=== PATIENT | male | born 1990 | race Caucasian/White ===

== ENCOUNTER 2017-11-23 23:51 | Inpatient (IN) | payer MEDICAID ==
[~2017-11-23] VITALS: Ht 175.3 cm; Wt 83.9 kg
--- NOTE | 2017-11-23 23:55 | NUR ---
PT BIB RA WITH A C/O FEVER 104 AT FACILITY. PER EMS, PT REC'D ROCEPHIN AT 1700 AND BACTRIM AT 2200. PT IS PINK IN COLOR. RUE IS CONTRACTED AND RT HAND IS RED, EDEMATOUS, AND WARM TO TOUCH. PT IS NON VERBAL, BUT NODS TO YES AND NO QUESTIONS. PT HAS BUE AND BLE CONTRACTURES. PT HAS LLE REDNESS, EDEMA, AND LLE IS WARM TO THE TOUCH. PT HAS 22G IV IN RT FOOT ANALYTICAL SCIENTIST. RT FOOT IV IS PATENT AND BENIGN. PT IS ON THE MONITOR AND CONTINUOUS PULSE OX. WILL CONTINUE TO MONITOR THE PT. DR. GAMBLE IS AT THE BEDSIDE. RECTAL TEMP TAKEN PT IS 103.9. NO BED SORES NOTED ON BACK OR BUTTOCK. SMALL WOUND NOTED ON RT HAND.
--- NOTE | 2017-11-23 23:55 | NUR ---
PT HAS A TRACH AND IS ON 5L AEROSOL VIA TRACH. RT IS AT THE BEDSIDE.
[2017-11-24] MEDS ORDERED: IV NS 0.9% 1,000 ML BAG IV ONE
--- NOTE | 2017-11-24 | NUR ---
PILLOW PLACED UNDER BILATERAL ANKLES TO OFFLOAD THE FEET.
[2017-11-24] MEDS ORDERED: VANCOMYCIN 1 GM VIAL ONE (00:09)
[2017-11-24] MEDS ORDERED: ACETAMINOPHEN 650 MG/SUPP.RECT RC ONE ×2 (00:09)
[2017-11-24] MEDS ORDERED: VANCOMYCIN 1 GM in IV D5W 250 ML IV ONE (00:30)
--- NOTE | 2017-11-24 00:32 | NUR ---
PT'S MOTHER IS AT THE BEDSIDE.
[2017-11-24 00:36] LABS: BASOPHILS % (AUTO) 0.2 % (0.0-2.0); EOSINOPHILS # (AUTO) 0.1 /CMM (0.0-0.7); HEMATOCRIT 33 % (39-51); HEMOGLOBIN 11.2 g/dL (13.5-17.5); LYMPHOCYTES # (AUTO) 0.5 /CMM (0.8-4.8); LYMPHOCYTES % (AUTO) 8.2 % (20.0-44.0); MEAN CORPUSCULAR HEMOGLOBIN 31 PG (26.0-33.0); MEAN CORPUSCULAR HGB CONC 34 g/dl (31.0-36.0); MEAN CORPUSCULAR VOLUME 90 fL (80-96); MONOCYTES # (AUTO) 0.2 /CMM (0.1-1.30); MONOCYTES % (AUTO) 3.6 % (2.0-12.0); NEUTROPHILS # (AUTO) 5.5 /CMM (1.8-8.9); PLATELET COUNT (AUTO) 153 /CMM (150-450); RDW COEFFICIENT OF VARIATION 12.9 (11.5-15.0); RED BLOOD CELL COUNT(AUTO) 3.62 MIL/uL (4.5-6.0); WHITE BLOOD COUNT (AUTO) 6.4 K/uL (4.3-11.0)
[2017-11-24 00:37] LABS: APPEARANCE,URINE CLEAR (CLEAR); BILIRUBIN,URINE NEGATIVE (NEGATIVE); BLOOD, URINE TRACE-INTA Ery/uL (NEGATIVE); COLOR,URINE YELLOW (YELLOW); KETONES,URINE NEGATIVE (NEGATIVE); LEUKOCYTE ESTERASE ,URINE NEGATIVE (NEGATIVE); NITRITE, URINE NEGATIVE (NEGATIVE); PH,URINE 6.5 (5.0-8.0); PROTEIN,URINE TRACE mg/dl (NEGATIVE); UGLUCOSE NEGATIVE (NEGATIVE); UROBILINOGEN,URINE 0.2 EU/dL (0.2)
[2017-11-24 00:40] LABS: BACTERIA,URINE None seen /HPF (None Seen); RBC,URINE 0-2 /HPF (0-2); SQUAMOUS EPITHELIAL CELL,UR Few /HPF (None Seen)
[2017-11-24 00:51] LABS: INR 1.11 (0.87-1.13)
[2017-11-24 00:57] LABS: TROPONIN I < 0.017 ng/mL (0.00-0.056)
[2017-11-24 00:58] LABS: CALCIUM, SERUM 8.3 mg/dL (8.5-10.1); CARBON DIOXIDE 29 mmol/L (21-32); CHLORIDE 104 mmol/L (98-107); CREATININE 0.6 mg/dL (0.6-1.3); GLUCOSE 90 mg/dL (74-106); POTASSIUM 3.8 mmol/L (3.5-5.1); SODIUM SERUM 141 mmol/L (136-145); UREA NITROGEN, BLOOD 14 mg/dL (7-18)
[2017-11-24 01:02] LABS: ALANINE AMINOTRANSFERASE 44 U/L (12-78); ALBUMIN 2.6 g/dL (3.4-5.0); ALKALINE PHOSPHATASE 48 U/L (46-116); ASPARTATE AMINOTRANSFERASE 23 U/L (15-37); BILIRUBIN,DIRECT 0.2 mg/dL (0.0-0.2); BILIRUBIN,TOTAL 0.5 mg/dL (0.2-1.0); TOTAL PROTEIN, SERUM 6.8 g/dL (6.4-8.2)
[2017-11-24] MEDS ORDERED: ACET325T53 GT (01:03)
[2017-11-24] MEDS ORDERED: LORA2VIA6 IM (01:03)
[2017-11-24] MEDS ORDERED: LACT-96 GT (01:03)
[2017-11-24] MEDS ORDERED: IPRA3AMP IH ×2 (01:03)
[2017-11-24] MEDS ORDERED: BISA10SU8 RC (01:03)
[2017-11-24] MEDS ORDERED: NA P133E RC (01:03)
[2017-11-24] MEDS ORDERED: LEVE1000 GT (01:03)
[2017-11-24] MEDS ORDERED: DOCU-141 GT (01:03)
[2017-11-24] MEDS ORDERED: FERR15DR21 GT (01:03)
[2017-11-24] MEDS ORDERED: DOXA1TAB2 GT (01:03)
[2017-11-24] MEDS ORDERED: ASPI-605 GT (01:03)
[2017-11-24] MEDS ORDERED: MAGN2400 GT (01:09)
--- NOTE | 2017-11-24 01:19 | NUR ---
RECTAL TEMP RECHECKED. 102.2F. DR. GAMBLE IS AWARE. PT WAS ADJUSTED IN BED AND PILLOWS REPLACED. PT APPEARS TO BE MORE COMFORTABLE.
--- NOTE | 2017-11-24 01:48 | NUR ---
CALLING REPORT TO MICKI RICO
[2017-11-24] MEDS ORDERED: MULT-213 GT (02:17)
[2017-11-24] MEDS ORDERED: PANT40SU2 GT (02:17)
[2017-11-24] MEDS ORDERED: CRAN3875 GT (02:17)
[2017-11-24] MEDS ORDERED: TIZA4TAB4 GT (02:17)
[2017-11-24] MEDS ORDERED: ASCO500T8 GT (02:17)
[2017-11-24] MEDS ORDERED: NIFE30TA89 GT (02:17)
[2017-11-24] MEDS ORDERED: SENN-167 GT (02:17)
--- NOTE | 2017-11-24 02:25 | NUR ---
BULK INTAKE WORKER INITIAL NOTES RECEIVED PATIENT AWAKE, NON-VERBAL, MOTHER AT BEDSIDE. NO S/S OF PAIN OR DISCOMFORT. NO RESPIRATORY DISTRESS NOTED, WITH TRACH PORTEX 7 C/D/I. ON TRACH MASK 5LPMO2, SPO2 100%. SKIN WARM AND DRY TO TOUCH. NOTED WITH RIGHT HAND SWELLING, RED, AND WARM TO TOUCH. PER MOTHER IT STARTED A FEW DAYS AGO AND THEY WERE USING ANTIBIOTIC OINTMENT AT THE FACILITY. NOTED WITH LEFT LEG REDNESS, WARM TO TOUCH. WITH GT PATENT AND INTACT, IN PLACE. ON TELE MONITOR SR 95. PAGED DR. WALKER FOR ADMISSION ORDERS. HOB ELEVATED. SIDE RAILS UP AND LOCKED. BED KEPT AT LOWEST POSITION. CALL LIGHT KEPT WITHIN EASY REACH. WILL CONTINUE TO MONITOR.
[2017-11-24 02:44] VITALS: BP 123/69
[2017-11-24 04:00] VITALS: BP 102/63
[2017-11-24] MEDS ORDERED: MORPHINE SULFATE INJ 2 MG/ML DISP.SYRIN IV PRN (04:00)
[2017-11-24] MEDS ORDERED: VANCOMYCIN 1 GM in IV D5W 250 ML IV SCH (04:00)
[2017-11-24] MEDS ORDERED: ONDANSETRON HCL/PF 4 MG/2 ML VIAL IVP PRN (04:00)
[2017-11-24] MEDS ORDERED: Z GUARD REMEDY 2 OZ OINT TP PRN (04:00)
[2017-11-24] MEDS ORDERED: FIBERSOURCE HN 1,000 ML BOTTLE GT PRN ×2 (04:30)
[2017-11-24] MEDS ORDERED: ALBUTEROL FS 2.5 MG/3 ML VIAL.NEB NEB PRN (04:30)
[2017-11-24] MEDS ORDERED: NIFEdipine XL (30MG) 30 MG TAB PO PRN (04:30)
[2017-11-24] MEDS ORDERED: LORAZEPAM INJ 2 MG/ML VIAL IV PRN (04:30)
[2017-11-24] MEDS ORDERED: PIPERACILLIN /TAZOBACTAM 3.375 G VIAL IV ONE (04:34)
[2017-11-24] MEDS: TIZANIDINE HCL 4 MG TABLET GT SCH ×3 (04:40→20:33)
[2017-11-24] MEDS: IV NS 0.9% 1,000 ML IV PRN (04:41)
[2017-11-24] MEDS: ACETAMINOPHEN 650 MG/SUPP.RECT RC PRN ×3 (04:59→20:03)
--- NOTE | 2017-11-24 05:00 | NUR ---
RESTORATIVE AIDE NOTES NOTED PATIENT WITH AXILLARY TEMP OF 101.2 COOLING MEASURES RENDERED. TYLENOL SUPOSSITORY GIVEN. WILL CONTINUE TO MONITOR.
[2017-11-24] MEDS: PIPERACILLIN /TAZOBACTAM 3.375 G in IV NS 0.9% 50 ML IV SCH ×3 (05:05→18:44)
[2017-11-24] MEDS ORDERED: FEE PK DOSING 1 MIN EA MC ONE (07:08)
--- NOTE | 2017-11-24 07:20 | NUR ---
RN NOTES PT IS LAYING DOWN IN BED, RESTING COMFORTABLY. PT ON 5L O2 VIA MASK ON TRACH, RESPIRATIONS ARE EVEN AND UNLABORED. IV ON LFA INTACT AND RUNNING NS @ 75ML/HR. G-TUBE IS PATENT AND RUNNING FIBERSOURCE @ 55ML/HR. SAFETY MEASURES ARE IN PLACE. WILL CONTINUE TO MONITOR.
--- NOTE | 2017-11-24 07:57 | NUR ---
DICTATING MACHINE TRANSCRIBER CLOSING NOTES NO SIGNIFICANT CHANGES. NO RESPIRATORY DISTRESS NOTED. COOLING MEASURES CONTINUED. GT PATENT AND INTACT. TOLERATING GTF. IVF RUNNING. HOB ELEVATED. SIDE RAILS UP AND LOCKED. BED KEPT AT LOWEST POSITION. KEPT CLEAN AND DRY. TURNED AND REPOSITIONED Q2 AND PRN. INFORMED AM NURSE TO F/U DVT PPX. CONTINUITY OF CARED ENDORSED TO AM NURSE.
[2017-11-24 08:00] VITALS: BP 144/60
[2017-11-24] MEDS: PANTOPRAZOLE 40 MG VIAL IV SCH (08:16)
[2017-11-24] MEDS: ASPIRIN EC 81 MG TABLET.DR PO SCH (08:16)
[2017-11-24] MEDS: FERROUS SULFATE UDC 300 MG/5 ML UDC PO SCH (08:16)
[2017-11-24] MEDS: LEVETIRACETAM (250 MG) 250 MG TABLET PO SCH ×2 (08:17→20:33)
[2017-11-24] MEDS: DOXAZOSIN MESYLATE (1 MG) 1 MG TABLET GT SCH (08:17)
[2017-11-24] MEDS: VANCOMYCIN 1.25 GM in IV NS 0.9% 500 ML IV SCH ×2 (08:21→16:09)
--- NOTE | 2017-11-24 10:38 | NUR ---
WOUND CARE CONSULT: PT PRESENTS WITH SWELLING AND REDNESS TO LEFT LOWER EXTREMITY, PRESENT ON ADMISSION. REDNESS EXTENDS FROM FOOT TO INNER THIGH. DEFER TO MD FOR REDNESS AND SWELLING. PT IS INCONTINENT. SACRAL AND BUTTOCK SCARRING NOTED. ALL SKIN PROTECTION MEASURES IN PLACE AND DISCUSSED WITH NURSING STAFF. FIRST STEP MATTRESS ORDERED. WILL SEE PRN. MD IN AGREEMENT WITH PLAN OF CARE. Addendum: 11/24/17 at 1039 by CLEMENTE DENNISON WNDNU Amended: Links added.
[2017-11-24 12:00] VITALS: BP 144/65
[2017-11-24 16:00] VITALS: BP_SYST 113; BP_SYST 137; BP_DIAS 59; BP_DIAS 70
--- NOTE | 2017-11-24 18:50 | NUR ---
RN NOTES PT IS LAYING DOWN IN BED WITH FAMILY AT BEDSIDE, NO SIGNS OF DISTRESS NOTED. PT ON 5L O2 VIA MASK CONNECTED TO TRACH. G-TUBE IS INTACT AND RUNNING FIBERSOURCE @ 65ML/HR. IV ON LFA IS INTACT AND RUNNING NS @ 75 ML/HR. ALL MEDS WERE GIVEN ORDERED. DILAUDID GIVEN FOR SIGNS OF PAIN NOTED. PT PROVIDED WITH SKIN AND WOUND CARE. SAFETY MEASURES ARE IN PLACE, CALL LIGHT IS IN REACH. WILL ENDORSE TO CHIEF MEDICAL OFFICER RN FOR CONTINUITY OF CARE.
[2017-11-24] MEDS: HYDROMORPHONE INJ 0.5 MG/0.5 ML SYRINGE IV PRN (18:52)
--- NOTE | 2017-11-24 19:30 | NUR ---
FIRE SAFETY MANAGER INITIAL NOTE RECEIVED IN BED WITH FAMILY AT BEDSIDE. OPENS EYES. ON COOL AEROSOL WITH 5LPM OF O2 AND SATURATING WELL. TELE- SR. IV LFA AND RFA CLEAN, DRY, PATENT WITH FLUIDS INFUSING. GTUBE FEEDING WELL TOLERATED AND NO RESIDUALS NOTED. HOB ELEVATED AND ON ASPIRATION PRECAUTIONS. WILL CONTINUE TO MONITOR.
[2017-11-25] VITALS: BP 133/62
[2017-11-25] MEDS: IV NS 0.9% 1,000 ML IV PRN (00:31)
[2017-11-25] MEDS: PIPERACILLIN /TAZOBACTAM 3.375 G in IV NS 0.9% 50 ML IV SCH ×4 (00:31→19:12)
[2017-11-25] MEDS: FIBERSOURCE HN 1,000 ML BOTTLE GT PRN (00:33)
[2017-11-25] MEDS: HYDROMORPHONE INJ 0.5 MG/0.5 ML SYRINGE IV PRN ×3 (00:43→17:40)
--- NOTE | 2017-11-25 01:00 | NUR ---
FOOD AND BEVERAGE CHECKER NOTE PT GIVEN TYLENOL SUPPOSITORY FOR INCREASED TEMP. COOLING MEASURES PERFORMED. MOTHER OF PT CALLED TO PLEASE ADMINISTER PAIN MEDICATION IF AWAKE D/T PAIN. WILL CONTINUE TO MONITOR.
[2017-11-25] MEDS: VANCOMYCIN 1.25 GM in IV NS 0.9% 500 ML IV SCH ×3 (01:24→17:11)
[2017-11-25] MEDS: ACETAMINOPHEN 650 MG/SUPP.RECT RC PRN ×2 (04:09→21:31)
[2017-11-25] MEDS: TIZANIDINE HCL 4 MG TABLET GT SCH ×3 (05:34→21:23)
[2017-11-25 06:47] LABS: BASOPHILS % (AUTO) 0.4 % (0.0-2.0); EOSINOPHILS # (AUTO) 0.2 /CMM (0.0-0.7); HEMATOCRIT 30 % (39-51); HEMOGLOBIN 10.3 g/dL (13.5-17.5); LYMPHOCYTES # (AUTO) 0.6 /CMM (0.8-4.8); MEAN CORPUSCULAR HEMOGLOBIN 31 PG (26.0-33.0); MEAN CORPUSCULAR HGB CONC 35 g/dl (31.0-36.0); MEAN CORPUSCULAR VOLUME 90 fL (80-96); MONOCYTES # (AUTO) 0.5 /CMM (0.1-1.30); MONOCYTES % (AUTO) 8.6 % (2.0-12.0); NEUTROPHILS # (AUTO) 4.3 /CMM (1.8-8.9); PLATELET COUNT (AUTO) 133 /CMM (150-450); RDW COEFFICIENT OF VARIATION 12.9 (11.5-15.0); RED BLOOD CELL COUNT(AUTO) 3.28 MIL/uL (4.5-6.0); WHITE BLOOD COUNT (AUTO) 5.6 K/uL (4.3-11.0)
[2017-11-25 06:54] LABS: CALCIUM, SERUM 7.8 mg/dL (8.5-10.1); CREATININE 0.6 mg/dL (0.6-1.3); MAGNESIUM 1.7 mg/dL (1.8-2.4); PHOSPHORUS 2.2 mg/dL (2.5-4.9); POTASSIUM 3.4 mmol/L (3.5-5.1)
[2017-11-25 06:58] LABS: THYROID STIMULATING HORMONE 2.331 uIU/mL (0.358-3.74)
--- NOTE | 2017-11-25 07:34 | NUR ---
SALES AGENT PEST CONTROL SERVICE CLOSING NOTE NO ACUTE DISTRESS NOTED. ALL NEEDS ATTENDED TO PROMPTLY. HOB ELEVATED. GAVE ANOTHER DOSE OF TYLENOL SUPPOSITORY AND RECHECKED TEMP 98.7 ORAL. KEPT CLEAN AND DRY. WILL ENDORSE TO NEXT SHIFT FOR CONTINUITY OF CARE.
--- NOTE | 2017-11-25 07:43 | NUR ---
DINKEY ENGINE FIRER/FIREMAN OPENING NOTE RECEIVED BEDSIDE SBAR REPORT ON THE PATIENT. PATIENT IS CONTRACTED. OPENS EYES SPONTANEOUSLY AND TO SOUND. PATIENT IS IN BED, LILI IS LOCKED IN LOWEST POSITION, SIDE RAILS UP X3, BED ALARM IS ON. PATIENT IS SEMI-HERNANDEZ'S POSITION. HOB ELEVATED. PATIENT IS ON COOL AEROSOL ORDERED. PATIENT APPEARS COMFORTABLE. NO S/S OF DISTRESS/PAIN/DISCOMFORT. ALL NEEDS ARE MET. WILL CONTINUE TO ASSESS/MONITOR THROUGHOUT THE SHIFT.
[2017-11-25 08:00] VITALS: BP 135/59
[2017-11-25] MEDS: LEVETIRACETAM (250 MG) 250 MG TABLET PO SCH ×2 (08:36→21:23)
--- NOTE | 2017-11-25 08:37 | NUR ---
Three 250 mg Levetiracetam tablets dispensed from one [facility], and Five 250 mg Levetiracetam tablets dispensed from another [facility] to administer intended dose. Dose verified. 6 rights of medication followed.
[2017-11-25] MEDS: DOXAZOSIN MESYLATE (1 MG) 1 MG TABLET GT SCH (08:42)
[2017-11-25] MEDS: ASPIRIN EC 81 MG TABLET.DR PO SCH (08:42)
[2017-11-25] MEDS: FERROUS SULFATE UDC 300 MG/5 ML UDC PO SCH (08:43)
[2017-11-25] MEDS: PANTOPRAZOLE 40 MG VIAL IV SCH (08:43)
--- NOTE | 2017-11-25 09:09 | NUR ---
Zosyn from 11/24 documented non-administered to rid of red passed-due reminder.
[2017-11-25] MEDS ORDERED: POTASSIUM CHLORIDE 20 MEQ POWDER PACKET PO ONE (11:00)
[2017-11-25] MEDS: Magnesium 1GM/D5W 100ML PREMIX 100 ML IV SCH ×2 (11:36→13:40)
[2017-11-25 12:00] VITALS: BP 129/69
[2017-11-25] MEDS ORDERED: POTASSIUM CHLORIDE 20 MEQ TAB.PRT.SR PO ONE (12:00)
[2017-11-25] MEDS: NEOMY SULF/BACITRAC ZN/POLY 15 GM TUBE TP SCH (15:35)
[2017-11-25 16:00] VITALS: BP 135/60
--- NOTE | 2017-11-25 17:20 | NUR ---
received an order for midline insertion.
[2017-11-25] MEDS ORDERED: NEUTRA PHOS 1 POWD.PACKET NG ONE (17:30)
--- NOTE | 2017-11-25 17:40 | NUR ---
painful midline insertion at the bedside. patient is screaming and grimacing. Dilaudid administered as ordered.
--- NOTE | 2017-11-25 18:51 | NUR ---
MS RN CLOSING NOTE PATIENT IS CONTRACTED. OPENS EYES SPONTANEOUSLY AND TO SOUND. PATIENT IS IN BED, LILI IS LOCKED IN LOWEST POSITION, SIDE RAILS UP X3, BED ALARM IS ON. PATIENT IS SEMI-HERNANDEZ'S POSITION. HOB ELEVATED AT ALL TIMES. PATIENT IS ON COOL AEROSOL ORDERED. PATIENT APPEARS COMFORTABLE. NO S/S OF DISTRESS/PAIN/DISCOMFORT. ALL DUE MEDICATIONS ADMINISTERED. FEEDING RUNNING PRESCRIBED. REPOSITIONED EVERY TWO HOURS AND NEEDED FOR COMFORT. DISCUSSED THE CARE PLAN WITH THE MOTHER AT THE BEDSIDE. ALL NEEDS ARE MET. WILL ENDORSE TO THE MOLD LOFT WORKER NURSE FOR JEAN.
--- NOTE | 2017-11-25 19:29 | NUR ---
Dilaudid administered at 1740 did not register in the system. Medication was scanned and administered during midline insertion. Rn wanted to check the time of last administration and found out that last recorder administration was 7 hours ago. Explained the situation to kassie Michel charge nurse.
[2017-11-25 20:00] VITALS: BP 136/79
[2017-11-26] MEDS: PIPERACILLIN /TAZOBACTAM 3.375 G in IV NS 0.9% 50 ML IV SCH ×4 (00:15→18:25)
[2017-11-26] MEDS: VANCOMYCIN 1.25 GM in IV NS 0.9% 500 ML IV SCH ×3 (00:47→18:16)
[2017-11-26 04:00] VITALS: BP 127/77
[2017-11-26] MEDS: TIZANIDINE HCL 4 MG TABLET GT SCH ×3 (05:02→20:48)
[2017-11-26] MEDS: IV NS 0.9% 1,000 ML IV PRN (05:14)
[2017-11-26 06:46] LABS: CALCIUM, SERUM 8.4 mg/dL (8.5-10.1); CREATININE 0.6 mg/dL (0.6-1.3); PHOSPHORUS 3.5 mg/dL (2.5-4.9); POTASSIUM 3.8 mmol/L (3.5-5.1)
--- NOTE | 2017-11-26 07:30 | NUR ---
MS RN OPENING NOTES RECEIVED PATIENT IN STABLE CONDITION. IN NO APPARENT DISTRESS. BEDSIDE RAILS ARE UPX2. BED IS LOCKED AND LOWERED. CALL LIGHT IS WITHIN REACH. WILL CONTINUE TO MONITOR.
[2017-11-26] MEDS: PANTOPRAZOLE 40 MG VIAL IV SCH (08:21)
[2017-11-26] MEDS: FERROUS SULFATE UDC 300 MG/5 ML UDC PO SCH (08:29)
[2017-11-26] MEDS: DOXAZOSIN MESYLATE (1 MG) 1 MG TABLET GT SCH (08:29)
[2017-11-26] MEDS: ASPIRIN EC 81 MG TABLET.DR PO SCH (08:30)
[2017-11-26] MEDS: LEVETIRACETAM (250 MG) 250 MG TABLET PO SCH ×2 (08:30→20:48)
[2017-11-26] MEDS: NEOMY SULF/BACITRAC ZN/POLY 15 GM TUBE TP SCH (08:31)
[2017-11-26 12:00] VITALS: BP 152/74
[2017-11-26] MEDS: LACTOBACILLUS RHAMNOSUS GG 1 EACH CAP.SPRINK PO SCH (18:19)
--- NOTE | 2017-11-26 18:30 | NUR ---
MS RN CLOSING NOTES PATIENT IS RESTING IN BED IN NO APPARENT DISTRESS. BEDSIDE RAILS ARE UPX2. BED IS LOCKED AND LOWERED. CALL LIGHT IS WITHIN REACH. WILL ENDORSE CARE TO HIGH SCHOOL SPORTS COACH NURSE FOR JEAN.
--- NOTE | 2017-11-26 19:30 | NUR ---
MS RN INITIAL NOTE PT RECEIVED IN BED WITH FAMILY AT BEDSIDE. OPENS EYES, NODS HEAD AND SMILES. ON COOL AEROSOL O2 5LPM WITH TRACH IN PLACE AND SATURATING 95%. IV CHESTER MIDLINE AND LFA CLEAN, DRY, PATENT WITH FLUIDS INFUSING. GTUBE FEEDING IN PLACE AND WELL TOLERATED WITHOUT RESIDUALS NOTED AT THIS TIME. HOB ELEVATED AND ON ASPIRATION PRECAUTIONS. WILL CONTINUE TO MONITOR.
[2017-11-26 20:00] VITALS: BP 127/68
[2017-11-27] MEDS: PIPERACILLIN /TAZOBACTAM 3.375 G in IV NS 0.9% 50 ML IV SCH ×5 (01:01→23:21)
[2017-11-27] MEDS: FIBERSOURCE HN 1,000 ML BOTTLE GT PRN ×2 (01:10→21:04)
[2017-11-27] MEDS: VANCOMYCIN 1.25 GM in IV NS 0.9% 500 ML IV SCH ×2 (01:53→09:00)
[2017-11-27 04:00] VITALS: BP 151/73
[2017-11-27] MEDS: TIZANIDINE HCL 4 MG TABLET GT SCH ×3 (04:33→20:04)
[2017-11-27] MEDS: HYDROMORPHONE INJ 0.5 MG/0.5 ML SYRINGE IV PRN ×2 (04:34→14:55)
[2017-11-27] MEDS: IV NS 0.9% 1,000 ML IV PRN (06:19)
[2017-11-27 07:01] LABS: CALCIUM, SERUM 8.4 mg/dL (8.5-10.1); CREATININE 0.6 mg/dL (0.6-1.3); POTASSIUM 3.4 mmol/L (3.5-5.1)
--- NOTE | 2017-11-27 07:07 | NUR ---
MS RN CLOSING NOTE PT REMAINED STABLE DURING SHIFT. NO ACUTE DISTRESS NOTED. ALL NEEDS ATTENDED TO PROMPTLY. NO FEVERS DURING THE SHIFT. KEPT CLEAN AND DRY. ON COOL AEROSOL AND SATURATING WELL. SUCTIONED NEEDED AND WELL TOLERATED. HOB ELEVATED. GT FEEDING WELL TOLERATED AND NO RESIDUALS NOTED. WILL ENDORSE TO NEXT SHIFT FOR CONTINUITY OF CARE.
--- NOTE | 2017-11-27 07:30 | NUR ---
INITIAL PT ON BED PT OPENS EYES STARTLES EASILY BUT WITHOUT PURPOSEFUL MOVEMENTS ON COMMAND. AND TRACHED T-PIECE AT 28%. PT HAS PICC IN CHESTER RUNNING NS AT 75 MLS/HR CLEAN DRY AND INTACT. ON GTF FIBER SOURCE AT 65 MLS PER HOUR NO RESIDUAL BED ALARM ON AND BED IN LOW POSITION.
[2017-11-27 08:00] VITALS: BP 107/54
[2017-11-27] MEDS: ASPIRIN EC 81 MG TABLET.DR PO SCH (10:11)
[2017-11-27] MEDS: FERROUS SULFATE UDC 300 MG/5 ML UDC PO SCH (10:11)
[2017-11-27] MEDS: PANTOPRAZOLE 40 MG VIAL IV SCH (10:11)
[2017-11-27] MEDS: LACTOBACILLUS RHAMNOSUS GG 1 EACH CAP.SPRINK PO SCH ×2 (10:12→16:26)
[2017-11-27] MEDS: LEVETIRACETAM (250 MG) 250 MG TABLET PO SCH ×2 (10:12→20:05)
[2017-11-27] MEDS: DOXAZOSIN MESYLATE (1 MG) 1 MG TABLET GT SCH (10:13)
[2017-11-27] MEDS: NEOMY SULF/BACITRAC ZN/POLY 15 GM TUBE TP SCH (10:14)
--- NOTE | 2017-11-27 10:15 | NUR ---
MS RN NOTES PATIENT RECEIVED IN BED RESTING ON TRACH WITH COOL AEROSOL 5LPM. WITH MIDLINE ON RIGHT UPPER ARM. PATIENT OPENS EYES NONE VERBAL. BED IN LOW LOCKED POSITION CALL LIGHT WITHIN REACH WILL CONTINUE TO MONITOR.
[2017-11-27] MEDS ORDERED: POTASSIUM CHLORIDE 20 MEQ POWDER PACKET GT SCH (13:00)
[2017-11-27 16:00] VITALS: BP 123/69
--- NOTE | 2017-11-27 18:27 | NUR ---
MS RN NOTES PATIENT IN BED RESTING NO SOB OR ACUTE DISTRESS NOTED. ALL DUE MEDICATIONS ADMINISTERED. ALL NEEDS MET. PATIENT WITH MIDLINE ON RIGHT UPPER ARM INTACT PATENT. TRACH ON COOL AEROSOL AT 5LPM. WILL ENDORSE CARE TO PM SHIFT.
--- NOTE | 2017-11-27 19:36 | NUR ---
MS RN NOTES: RECEIVED PT IN BED. PT OPENS EYES AND IS CONTRACTED. PT ON 5LPM VIA COOL AEROSOL. PT HAS G TUBE AND IS ON FIBERSOURCE AT 65ML/HR. PT HAS CHESTER MIDLINE AND IS BEING INFUSED WITH ZOSYN IV THIS TIME. PT ALSO HAS L FOREARM #20G AND IS PATENT AND INTACT/ ALSO SALINE LOCK. CALL LIGHT WITHIN PT'S REACH. BED KEPT IN LOW, LOCKED POSITION, AND SIDE RAILS X 3UP. WILL CONTINUE TO MONITOR PT.
[2017-11-27 20:00] VITALS: BP 143/73
[2017-11-27] MEDS: VANCOMYCIN 1.25 GM in IV D5W 500 ML IV SCH (20:21)
--- NOTE | 2017-11-27 23:15 | NUR ---
MS RN NOTES: DR. RUTHIE Rivas ON THE FLOOR. MENTIONED TO HIM ORAL THRUSH . GOT ORDER FOR NYSTATIN.
[2017-11-28] MEDS: IV NS 0.9% 1,000 ML IV PRN (00:14)
[2017-11-28 04:00] VITALS: BP 113/64
[2017-11-28] MEDS: TIZANIDINE HCL 4 MG TABLET GT SCH ×2 (04:40→13:28)
[2017-11-28] MEDS: PIPERACILLIN /TAZOBACTAM 3.375 G in IV NS 0.9% 50 ML IV SCH ×2 (05:01→13:22)
[2017-11-28 06:39] LABS: CALCIUM, SERUM 8.5 mg/dL (8.5-10.1); CREATININE 0.6 mg/dL (0.6-1.3); POTASSIUM 3.7 mmol/L (3.5-5.1)
--- NOTE | 2017-11-28 06:55 | NUR ---
MS RN CLOSING NOTES: ALL NEEDS WERE ATTENDED AND ANTICIPATED FOR. PT KEPT CLEAN, DRY, AND COMFORTABLE. PT IS IN BED ASLEEP AT THIS TIME. PT IS CONTRACTED. PT ON 5LPM VIA COOL AEROSOL AND TOLERATING WELL. PT HAS G TUBE AND IS ON FIBERSOURCE AT 65ML/HR. 5ML RESIDUAL NOTED. HAS BEEN FLUSHED WITH WATER. PT HAS CHESTER MIDLINE AND IS BEING INFUSED WITH NS AT 75ML/HR. PT ALSO HAS L FOREARM #20G AND IS PATENT AND INTACT/ ALSO SALINE LOCK. CALL LIGHT WITHIN PT'S REACH. BED KEPT IN LOW, LOCKED POSITION, AND SIDE RAILS X 3UP. WILL ENDORSE TO AM NURSE FOR JEAN.
[2017-11-28 08:00] VITALS: BP 126/65
[2017-11-28] MEDS: PANTOPRAZOLE 40 MG VIAL IV SCH (08:29)
[2017-11-28] MEDS: VANCOMYCIN 1.25 GM in IV D5W 500 ML IV SCH (08:29)
--- NOTE | 2017-11-28 08:33 | NUR ---
MS RN NOTES PATIENT IS AWAKE, OPENS EYES. TRACH INTACT TO 5L OXYGEN COOL AEROSOL. BUE AND BLE CONTRACTED. CHESTER MIDLINE PATENT AND INTACT, IVF NS INFUSING AT 75ML/HR. ABDOMEN PRESENCE OF GTUBE, GASTRIC RESIDUAL 10CC, ON FIBERSOURCE AT 65ML/HR, TOLERATING WELL. FAL PRECAUTION MAINTAIN, WILL CONT TO MONITOR.
[2017-11-28] MEDS: LEVETIRACETAM (250 MG) 250 MG TABLET PO SCH (08:48)
[2017-11-28 08:49] VITALS: BP 126/65
[2017-11-28] MEDS: ASPIRIN EC 81 MG TABLET.DR PO SCH (08:49)
[2017-11-28] MEDS: FERROUS SULFATE UDC 300 MG/5 ML UDC PO SCH (08:49)
[2017-11-28] MEDS: LACTOBACILLUS RHAMNOSUS GG 1 EACH CAP.SPRINK PO SCH (08:49)
[2017-11-28] MEDS: DOXAZOSIN MESYLATE (1 MG) 1 MG TABLET GT SCH (08:49)
[2017-11-28] MEDS: NYSTATIN (PYXIS) 500,000 UNIT/5 ML ORAL.SUSP PO SCH ×2 (08:56→13:28)
[2017-11-28] MEDS: NEOMY SULF/BACITRAC ZN/POLY 15 GM TUBE TP SCH (11:34)
--- NOTE | 2017-11-28 14:55 | NUR ---
MS RN DISCHARGED PATIENT HAS BEEN CLEARED FOR DISCHARGE. VS REMAINS STABLE, TRACH INTACT ON COOL AEROSOL 5L OXYGEN. CHESTER MIDLINE REMAINS IN PLACE, PATENT AND INTACT, PATIENT WILL CONT IV ANTIBIOTIC AT THE SN[facility] ORDERED. CALLED ANET[facility] TAVAREZ, SPOKE TO MICKI LORD FOR REPORT. NOTIFIED FAMILY SPOKE TO AKIN, MOTHER. PATIENT LEFT HOSP IN STABLE CONDITION VIA AMBULANCE.
== END 2017-11-28 14:11 | DRG 720 ==
LOC: ER 23:54 → TELE1 11-24 02:03 → MEDSG1 11-25 12:34
PROC: 05H533Z Insertion of Infusion Device into Right Subclavian Vein, Percutaneous Approach (ICD-10-PCS; principal; 2017-11-26)
PROC: B546ZZA Ultrasonography of Right Subclavian Vein, Guidance (ICD-10-PCS; principal; 2017-11-26)
DX: A41.9 Sepsis, unspecified organism (principal); E43 Unspecified severe protein-calorie malnutrition; Z99.11 Dependence on respirator [ventilator] status; R40.3 Persistent vegetative state; G93.1 Anoxic brain damage, not elsewhere classified; J96.11 Chronic respiratory failure with hypoxia; R53.2 Functional quadriplegia; E87.2 Acidosis; L89.322 Pressure ulcer of left buttock, stage 2; D68.59 Other primary thrombophilia; Z93.0 Tracheostomy status; L03.116 Cellulitis of left lower limb; E83.42 Hypomagnesemia; E87.6 Hypokalemia; G40.909 Epilepsy, unspecified, not intractable, without status epilepticus; K21.9 Gastro-esophageal reflux disease without esophagitis; I10 Essential (primary) hypertension; N40.0 Benign prostatic hyperplasia without lower urinary tract symptoms; R13.10 Dysphagia, unspecified; E88.09 Other disorders of plasma-protein metabolism, not elsewhere classified; Z74.01 Bed confinement status; D64.9 Anemia, unspecified; Z93.1 Gastrostomy status; Z68.27 Body mass index [BMI] 27.0-27.9, adult; S60.511A Abrasion of right hand, initial encounter; X58.XXXA Exposure to other specified factors, initial encounter; Y93.9 Activity, unspecified; Y92.129 Unspecified place in nursing home as the place of occurrence of the external cause; L98.8 Other specified disorders of the skin and subcutaneous tissue; S30.810A Abrasion of lower back and pelvis, initial encounter; F09 Unspecified mental disorder due to known physiological condition; R21 Rash and other nonspecific skin eruption
CPT/HCPCS: 31720; 36415; 36569; 71045-TC; 80048-TC; 80061-TC; 80076-TC; 80202-TC; 81000-TC; 83605-TC; 83735-TC; 84100-TC; 84443-TC; 84484-TC; 85025-TC; 85730-TC; 87040-TC; 87081-TC; 87086-TC; 93971-TC; 94640-TC; 94664-TC; 94799-TC; A4216; A4606; C9113; J2060; J2543; J3370; J3475; J7030; J7040; J7060; Z7610

== ENCOUNTER 2020-04-04 23:36 | Emergency (ER) | payer MEDICAID ==
[~2020-04-04] VITALS: Ht 167.6 cm; Wt 77.1 kg
[~2020-04-04 23:36] MED LIST: ACET325T53 GT; ASCO500T87 GT; ASPI-605 GT; BISA10SU11 RC; CRAN3875 GT; DOCU-141 GT; DOXA1TAB2 GT; FERR15DR23 GT; IPRA3AMP23 IH; LACT-96 GT; LEVE1000 GT; LORA2VIA6 IM; MAGN24002 GT; MULT-213 GT; NA P133E RC; NIFE-35 GT; PANT40SU2 GT; SENN-261 GT; TIZA4TAB5 GT
--- NOTE | 2020-04-04 23:50 | NUR ---
PT NON VERBAL. KATHY FROM [facility] FOR GT PLACEMENT COMF. KUB WAS DONE IN THE FACILITIY. PT PLACED IN BED 2, ON MONITOR AND PULSE OX. AT BEDSIDE FOR EVAL.
--- NOTE | 2020-04-04 23:50 | NUR ---
XRAY AT BEDSIDE
--- NOTE | 2020-04-05 00:09 | NUR ---
AKIN [phone]
--- NOTE | 2020-04-05 01:14 | NUR ---
BLOOD COLLECTED AND SENT TO LAB
[2020-04-05 01:19] LABS: BASOPHILS # (AUTO) 0.1 /CMM (0.0-0.2); BASOPHILS % (AUTO) 0.9 % (0.0-2.0); EOSINOPHILS % (AUTO) 6.7 % (0.0-6.0); HEMATOCRIT 46 % (39-51); HEMOGLOBIN 15.4 g/dL (13.5-17.5); LYMPHOCYTES # (AUTO) 2.9 /CMM (0.8-4.8); LYMPHOCYTES % (AUTO) 38.2 % (20.0-44.0); MEAN CORPUSCULAR HGB CONC 34 g/dl (31.0-36.0); MEAN CORPUSCULAR VOLUME 93 fL (80-96); MONOCYTES # (AUTO) 0.6 /CMM (0.1-1.30); MONOCYTES % (AUTO) 7.6 % (2.0-12.0); NEUTROPHILS # (AUTO) 3.6 /CMM (1.8-8.9); NEUTROPHILS % (AUTO) 46.6 % (43.0-81.0); PLATELET COUNT (AUTO) 238 /CMM (150-450); RED BLOOD CELL COUNT(AUTO) 4.94 MIL/uL (4.5-6.0); WHITE BLOOD COUNT (AUTO) 7.7 K/uL (4.3-11.0)
--- NOTE | 2020-04-05 01:20 | NUR ---
PT BROUGHT TO CT
--- NOTE | 2020-04-05 01:20 | NUR ---
URINE COLLECTED AND SENT TO LAB
[2020-04-05 01:23] LABS: APPEARANCE,URINE CLEAR (CLEAR); BILIRUBIN,URINE NEGATIVE (NEGATIVE); BLOOD, URINE NEGATIVE Ery/uL (NEGATIVE); COLOR,URINE DARK YELLO (YELLOW); KETONES,URINE NEGATIVE (NEGATIVE); LEUKOCYTE ESTERASE ,URINE NEGATIVE (NEGATIVE); NITRITE, URINE NEGATIVE (NEGATIVE); PROTEIN,URINE TRACE mg/dl (NEGATIVE); UGLUCOSE NEGATIVE (NEGATIVE); UROBILINOGEN,URINE 0.2 EU/dL (0.2)
[2020-04-05 01:41] LABS: BACTERIA,URINE Few /HPF (None Seen); SQUAMOUS EPITHELIAL CELL,UR Rare /HPF (None Seen)
--- NOTE | 2020-04-05 01:51 | NUR ---
SYSTEMS ADMINISTRATION ANALYST AT BEDSIDE FOR REDRAW.
[2020-04-05 02:33] LABS: CALCIUM, SERUM 9.6 mg/dL (8.5-10.1); CREATININE 0.7 mg/dL (0.6-1.3); POTASSIUM 4.2 mmol/L (3.5-5.1)
[2020-04-05 02:34] LABS: ALBUMIN 4.1 g/dL (3.4-5.0); BILIRUBIN,TOTAL 0.9 mg/dL (0.2-1.0)
[2020-04-05 02:35] LABS: TOTAL PROTEIN, SERUM 8.2 g/dL (6.4-8.2)
--- NOTE | 2020-04-05 02:47 | NUR ---
called [facility]-- #[id number]; eta about 4hrs
--- NOTE | 2020-04-05 02:57 | NUR ---
ammarino 4am eta
--- NOTE | 2020-04-05 02:58 | NUR ---
gave report to freddy tsang at [facility]
[2020-04-05] MEDS ORDERED: POLYETHYLENE GLYCOL 3350 17 GM POWD.PACK PO ONE (03:00)
[2020-04-05] MEDS ORDERED: POLYETHYLENE GLYCOL 3350 17 GM POWD.PACK ONE (03:02)
[2020-04-05 03:57] LABS: BILIRUBIN,DIRECT 0.2 mg/dL (0.0-0.2)
--- NOTE | 2020-04-05 04:08 | NUR ---
REPORT GIVEN TO EMS. PT STABLE FOR DISCHARGE HOME
--- NOTE | 2020-04-05 04:09 | NUR ---
Patient discharged to facility in stable condition. Written and verbal after care instructions given. Patient verbalizes understanding of instruction.
[2020-04-05 04:10] VITALS: BP 106/71
== END 2020-04-05 04:17 | disposition home or self-care (01) ==
LOC: ER 23:36
DX: K63.89 Other specified diseases of intestine (principal); R56.9 Unspecified convulsions; I10 Essential (primary) hypertension; K21.9 Gastro-esophageal reflux disease without esophagitis; Z93.1 Gastrostomy status; Z79.899 Other long term (current) drug therapy
CPT/HCPCS: 36415; 74018; 80048-TC; 80076-TC; 81000-TC; 85025-TC; 87086-TC

== ENCOUNTER 2022-07-14 23:58 | Inpatient (IN) | payer MEDICAID ==
[~2022-07-14] VITALS: Ht 167.6 cm; Wt 86.4 kg
--- NOTE | 2022-07-15 00:10 | NUR ---
PATIENT [id number] FROM SNF C/O SOB S/P VOMITING. PATIENT ON TRACH 15L. PATIENT TAKEN TO ER BED 04. PATIENT CONNECTED TO ALIGNMENT SPECIALIST AND POX MONIOTRS. RT AT BEDSIDE FOR SUCTION.
--- NOTE | 2022-07-15 00:10 | NUR ---
PT HAS GTUBE FOR FEEDING
[2022-07-15] MEDS ORDERED: PANTOPRAZOLE 80 MG in IV NS 0.9% 100 ML IV ONE (00:30)
[2022-07-15] MEDS ORDERED: CEFEPIME 2 GM in IV D5W 100 ML IV ONE (00:30)
[2022-07-15] MEDS ORDERED: LEVOFLOXACIN 750 MG /D5W 150ML PIGGYBACK IV ONE (00:30)
[2022-07-15] MEDS ORDERED: PANTOPRAZOLE 80 MG in IV NS 0.9% 500 ML IV PRN (00:30)
--- NOTE | 2022-07-15 00:50 | NUR ---
PATIENT IS ATTACHED TO VENT
--- NOTE | 2022-07-15 00:50 | NUR ---
PT ON AC MODE FiO2 100%, TV 550, RATE 16, PEEP 5
--- NOTE | 2022-07-15 00:54 | NUR ---
RT NOTE Pt rec'd trached via PORTEX 7 UNCUFFED on Tmask @ 15lpm. Pt aspirated at facility via [facility] [employer]. Pt sx'd for thick mod amt of black secretions. Trach changed to PORTEX 7 CUFFED per MD orders and placed on [facility] vent on AC mode settings as charted per MD orders. Trach is patent and secured. Minimal bleeding noted at trach site. Pt shows no signs of resp distress or SOB. Alarms are set and audible. Ambu bag and emergency spare trach at bedside. Vent plugged into red outlet. ABG to be taken within 1 HR. Addendum: 07/15/22 at 0059 by MELODY IBRAHIM RT Amended: Links added.
--- NOTE | 2022-07-15 01:00 | NUR ---
IV CANNULA G20 INSERTED ON LEFT FA. BLOOD DRAWN BY MINE ENGINEER
[2022-07-15] MEDS ORDERED: PANTOPRAZOLE 40 MG VIAL ONE (01:06)
--- NOTE | 2022-07-15 01:20 | NUR ---
URINE COLLECTED AND SENT TO LAB
--- NOTE | 2022-07-15 01:20 | NUR ---
COVID SWAB DONE.
--- NOTE | 2022-07-15 01:29 | NUR ---
IFC F16 INSERTED. URINE SPECIMEN SENT TO LAB
[2022-07-15 01:38] LABS: BASOPHILS % (AUTO) 0.1 % (0.0-2.0); HEMATOCRIT 40 % (39-51); HEMOGLOBIN 13.3 g/dL (13.5-17.5); LYMPHOCYTES # (AUTO) 0.5 K/uL (0.8-4.8); LYMPHOCYTES % (AUTO) 2.9 % (20.0-44.0); MEAN CORPUSCULAR HGB CONC 33 g/dl (31.0-36.0); MEAN CORPUSCULAR VOLUME 88 fL (80-96); MONOCYTES # (AUTO) 0.5 K/uL (0.1-1.30); MONOCYTES % (AUTO) 3.5 % (2.0-12.0); NEUTROPHILS # (AUTO) 14.4 K/uL (1.8-8.9); NEUTROPHILS % (AUTO) 93.5 % (43.0-81.0); PLATELET COUNT (AUTO) 233 K/uL (150-450); RED BLOOD CELL COUNT(AUTO) 4.57 MIL/uL (4.5-6.0); WHITE BLOOD COUNT (AUTO) 15.4 K/uL (4.3-11.0)
[2022-07-15 01:39] LABS: BILIRUBIN,URINE NEGATIVE (NEGATIVE); COLOR,URINE YELLOW (YELLOW); LEUKOCYTE ESTERASE ,URINE NEGATIVE (NEGATIVE); NITRITE, URINE NEGATIVE (NEGATIVE); PROTEIN,URINE 30 mg/dl (NEGATIVE); UGLUCOSE NEGATIVE (NEGATIVE)
[2022-07-15 01:50] LABS: CALCIUM, SERUM 8.9 mg/dL (8.5-10.1); CARBON DIOXIDE 31 mmol/L (21-32); CHLORIDE 102 mmol/L (98-107); GLUCOSE 137 mg/dL (74-106); POTASSIUM 3.5 mmol/L (3.5-5.1); SODIUM SERUM 140 mmol/L (136-145); UREA NITROGEN, BLOOD 28 mg/dL (7-18)
[2022-07-15 01:55] LABS: ALANINE AMINOTRANSFERASE 21 U/L (12-78); ALBUMIN 3.5 g/dL (3.4-5.0); ALKALINE PHOSPHATASE 51 U/L (46-116); ASPARTATE AMINOTRANSFERASE 17 U/L (15-37); BILIRUBIN,DIRECT 0.1 mg/dL (0.0-0.2); BILIRUBIN,TOTAL 0.5 mg/dL (0.2-1.0); TOTAL PROTEIN, SERUM 7.8 g/dL (6.4-8.2)
[2022-07-15] MEDS ORDERED: LEVOFLOXACIN 750 MG /D5W 150ML 150 ML IV ONE (02:21)
[2022-07-15] MEDS ORDERED: CEFEPIME 1 GM VIAL ONE (02:21)
--- NOTE | 2022-07-15 02:56 | NUR ---
PT CAME BACK FROM CT SCAN
--- NOTE | 2022-07-15 03:01 | NUR ---
ABG DONE AT BEDSIDE
--- NOTE | 2022-07-15 03:20 | NUR ---
RT NOTE LATE ENTRY ABG TAKEN AND RESULTS GIVEN TO MD. FIO2 TITRATED TO 50% PER MD ORDERS Addendum: 07/15/22 at 0517 by MELODY IBRAHIM RT Amended: Links added.
[2022-07-15] MEDS ORDERED: BISACODYL SUPP (10 MG) 10 MG/SUPP.RECT SUPP.RECT RC PRN (03:30)
[2022-07-15] MEDS ORDERED: NA PHOS,M-B/NA PHOS,DI-BA 1 EA ENEMA RC PRN (03:30)
[2022-07-15] MEDS ORDERED: LORAZEPAM INJ 2 MG/ML VIAL IV PRN (03:30)
[2022-07-15] MEDS ORDERED: Medication Not On Formulary EA (Ipratropium/Albuterol Sulfate (Duoneb 2.5-0.5 Mg/3 Ml So IH PRN (03:30)
[2022-07-15] MEDS ORDERED: CEFEPIME 1 GM in IV D5W 50 ML IV SCH (04:00)
[2022-07-15] MEDS ORDERED: ACETAMINOPHEN 325 MG TABLET PO PRN (04:00)
[2022-07-15] MEDS ORDERED: ONDANSETRON HCL/PF 4 MG/2 ML VIAL IVP PRN (04:00)
[2022-07-15] MEDS ORDERED: MAGNESIUM HYDROXIDE 30 ML UDC PO PRN (04:00)
[2022-07-15] MEDS ORDERED: ZOLPIDEM TARTRATE 5 MG TABLET PO PRN (04:00)
[2022-07-15] MEDS ORDERED: Z GUARD REMEDY 4 OZ OINT TP PRN (04:00)
[2022-07-15] MEDS ORDERED: MAG HYDROX/AL HYDROX/SIMETH 30 ML UDC PO PRN (04:00)
--- NOTE | 2022-07-15 04:25 | NUR ---
SEWING DEPARTMENT SUPERVISOR AT BEDSIDE
--- NOTE | 2022-07-15 04:54 | NUR ---
MOTHER AT BEDSIDE
--- NOTE | 2022-07-15 05:06 | NUR ---
REPORT GIVEN TO MICKI BRITTON
[2022-07-15 05:14] LABS: ABG BASE EXCESS 5.2 mmol/L; ABG PCO2 40.6 mmHg (35.0-45.0); ABG PH 7.475 (7.350-7.450); ABG PO2 383.5 mmHg (75.0-100.0); COHb 0.3 % (0.5-1.5); MetHb 0.5 % (0.0-1.5); O2Hb 98.7 % (94.0-97.0); PEEP,BG 5 cm H2O; SITE, ABG Right Brachial; VENT MODE, BG AC 18 550 100% +5; VT, ABG 550 mL
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
--- NOTE | 2022-07-15 05:37 | NUR ---
[facility] IS AWARE THAT WE NEED MIDLINE NURSE TO COME THIS AM TO INSERT.
--- NOTE | 2022-07-15 05:38 | NUR ---
TRANSFER PATIENT TO ROOM VIA ACLS WITH RT AND RN
--- NOTE | 2022-07-15 05:46 | NUR ---
RT pt transferred to room with no complications. vent plugged in to red outlet. ambu bag at bedside. trach clear and patent. no sob, no resp distress.
[2022-07-15] MEDS: TIZANIDINE HCL 4 MG TABLET GT SCH ×3 (05:57→21:38)
[2022-07-15] MEDS ORDERED: Medication Not On Formulary EA (Ipratropium/Albuterol Sulfate (Duoneb 2.5-0.5 Mg/3 Ml So IH SCH (06:00)
--- NOTE | 2022-07-15 06:44 | NUR ---
RN INITIAL NOTE PT ARRIVED TO UNIT VIA GURNEY. PT ATTACHED TO VENT WITH FOLLOWING VENT SETTINGS P#7, AC 16, TV 550 FIO2 40%, PEEP 5; TOLERATING VENT SETTINGS WELL WITH CURRENT O2SAT OF 100%; NO S/S OF RESP DISTRESS, NO SOB OR COUGH, NON-LABORED AND EQUAL BREATHING. PT ATTACHED TO EXTERNAL MONITOR ST WITH HR OF 107. PRUITT INTACT AND PATENT, DRAINING CLEAR AND YELLOW URINE. PEG TUBE IN PLACE, WITH DRESSING C/D/I, NO RESIDUALS NOTED. PT NOTED TO HAVE LFA AND HECTOR 20G, INTACT AND PATENT, FLUSHES EASILY WITH NO RESISTANCE. BED IN LOWEST POSITION, CALL LIGHT WITHIN REACH, SIDE RAILS UP X3. WILL INITIATE PLAN OF CARE.
--- NOTE | 2022-07-15 07:00 | NUR ---
RN NOTES RECEIVED PT ON BED, VENT/TRACH DEPENDENT, TOLERATING VENT SETTING WELL, NONVERBAL ,RESPONDS TO PAINFUL STIMULI, ON TELE SR HR IN 110'S PRUITT DRAINING TO GRAVITY , PEG TUBE CLAMPED, NS AT 100CC/HR RUNNING , SR UP X3, CALL LIGHT WITHIN EASY REACH, CONTINUE TO MONITOR.
[2022-07-15] MEDS ORDERED: JEVITY 1.2 CAL 1,000 ML BOTTLE GT PRN (07:30)
[2022-07-15] MEDS ORDERED: IPRATROPIUM NEB FS 0.5 MG/2.5 ML AMPUL.NEB IH PRN (07:30)
[2022-07-15] MEDS ORDERED: ALBUTEROL FS 2.5 MG/0.5 ML VIAL.NEB NEB PRN (07:30)
[2022-07-15] MEDS: ALBUTEROL FS 2.5 MG/3 ML VIAL.NEB NEB SCH ×3 (07:31→20:15)
[2022-07-15] MEDS: IPRATROPIUM NEB FS 0.5 MG/2.5 ML AMPUL.NEB NEB SCH ×3 (07:31→20:15)
[2022-07-15] MEDS ORDERED: ZOLPIDEM TARTRATE 5 MG TABLET GT PRN (07:36)
[2022-07-15] MEDS ORDERED: MAG HYDROX/AL HYDROX/SIMETH 30 ML UDC GT PRN (07:36)
[2022-07-15] MEDS ORDERED: MAGNESIUM HYDROXIDE 30 ML UDC GT PRN (07:37)
[2022-07-15 08:00] VITALS: BP 97/59
[2022-07-15] MEDS ORDERED: VANCOMYCIN 1.25 GM in IV D5W 250 ML IV SCH (08:00)
[2022-07-15] MEDS: ASCORBIC ACID 500 MG TABLET GT SCH (08:48)
[2022-07-15] MEDS: SENNOSIDES 8.6 MG TABLET GT SCH ×2 (08:48→16:12)
[2022-07-15] MEDS: DOCUSATE SODIUM 100 MG CAPSULE PO SCH ×2 (08:49→16:12)
[2022-07-15] MEDS: MULTIVIT W/MINERALS 1 TAB TABLET PO SCH (08:49)
[2022-07-15] MEDS: PANTOPRAZOLE 40 MG VIAL IV SCH ×2 (08:50→21:38)
[2022-07-15] MEDS: LEVETIRACETAM SOL (5 ML) 100 MG/ML UDC GT SCH ×2 (08:53→21:48)
[2022-07-15] MEDS: DOXAZOSIN MESYLATE (1 MG) 1 MG TABLET GT SCH (08:56)
[2022-07-15] MEDS ORDERED: FERROUS SULFATE (325 MG) 325 MG/TAB TABLET GT SCH (09:00)
[2022-07-15] MEDS ORDERED: Medication Not On Formulary EA (Cran/Vitc/Mannose/Inulin/Brom (Uti-Stat Liquid) 3,875 MG GT SCH (09:00)
--- NOTE | 2022-07-15 09:00 | NUR ---
RN NOTES PT IS MORE AWAKE AND TALKATIVE , VSS STABLE , NO DISTRESS NOTED, CONTINUE TO MONITOR .
[2022-07-15] MEDS: FERROUS SULFATE UDC 300 MG/5 ML UDC GT SCH (09:37)
[2022-07-15 12:00] VITALS: BP 118/79
--- NOTE | 2022-07-15 13:00 | NUR ---
MICKI NOTES AGGIE QUINTERO AND DR MENDES , NOTIFIED REGARDING POSITIVE BLOOD CULTURE , Addendum: 07/15/22 at 1556 by CALI REYES RN PLEASE DISREGARD ABOVE CHARTING ,CHARTED ON WRONG PT
[2022-07-15] MEDS: CEFEPIME 2 GM in IV D5W 100 ML IV SCH ×2 (13:24→21:38)
[2022-07-15] MEDS ORDERED: NIFEdipine (10MG) 10 MG CAPSULE PO SCH (14:00)
[2022-07-15] MEDS ORDERED: SULF1TAB48 GT (14:04)
[2022-07-15] MEDS ORDERED: CHOL200013 GT (14:04)
[2022-07-15] MEDS: ENOXAPARIN SODIUM 40 MG/0.4 ML DISP.SYRIN SQ SCH (14:10)
[2022-07-15] MEDS: VANCOMYCIN 1 GM in IV D5W 250 ML IV SCH ×2 (15:21→23:46)
--- NOTE | 2022-07-15 15:54 | NUR ---
RN note RECEIVED PT ATTACHED TO VENT WITH FOLLOWING VENT SETTINGS P#7, AC 16, TV 550 FIO2 40%, PEEP 5; TOLERATING VENT SETTINGS WELL WITH CURRENT O2SAT OF 100%; NO S/S OF RESP DISTRESS, NO SOB OR COUGH, NON-LABORED AND EQUAL BREATHING. PT ATTACHED TO EXTERNAL MONITOR ST WITH HR OF 102. PRUITT INTACT AND PATENT, DRAINING CLEAR AND YELLOW URINE. PEG TUBE IN PLACE, NO RESIDUALS NOTED. PT HAS LFA AND HECTOR 20G, INTACT AND PATENT, FLUSHES EASILY WITH NO RESISTANCE. BED IN LOWEST POSITION, CALL LIGHT WITHIN REACH, SIDE RAILS UP X3. WILL CONTINUE TO FALLOW POC
--- NOTE | 2022-07-15 15:55 | NUR ---
RN NOTES PT IS AWAKE , AND ALERT, FOLLOWS COMMAND , REPORT GIVEN TO CHAKA SWEET FOR CONTINUITY OF CARE. Addendum: 07/15/22 at 1556 by CALI REYES RN PLEASE DISREGARD ABOVE CHARTING ,CHARTED ON WRONG PT
[2022-07-15 16:00] VITALS: BP 98/66
--- NOTE | 2022-07-15 18:16 | NUR ---
RN NOTES NO VOMITING NOTED ON THIS SHIFT, VSS STABLE , PT TOLERATING VENT SETTING WELL, WILL ENDORSE TO PRESS HAND SUPERVISOR NURSE FOR CONTINUITY OF CARE .
--- NOTE | 2022-07-15 19:30 | NUR ---
RN OPENING NOTE RECEIVED PT ON BED, VENT/TRACH DEPENDENT, TOLERATING SETTINGS WELL, NO S/SX OF ACUTE RESPI DISTRESS NOTED AT THIS TIME. O2 SAT AT 100%. TELE MONITOR SHOWS SR WITH HR >95. IV ACCESS NOTED ON LFA, #20G AND CHESTER ML RUNNING NS @ 100 CC/HR. PEG TUBE NOTED, CLAMPED. FC IN PLACE DRAINING YELLOW URINE TO GRAVITY. PT IS QUADRIPLEGIC, BUE AND BLE CONTRACTED. ALL SAFETY MEASURES IN PLACE: BED LOCKED IN LOW POSITION, BED ALARM ON, SR UP X3, CALL LIGHT WITHIN EASY REACH. WILL CONTINUE TO MONITOR.
[2022-07-15 20:00] VITALS: BP 112/65
--- NOTE | 2022-07-15 20:15 | NUR ---
RCVD PT TRACHED PORTEX 7 ON VENT SETTINGS OF AC 16, VT 550, FIO2 40%, PEEP 5. PT IS AWAKE AND ALERT. BREATHING TX GIVEN PER MD'S ORDER, NO ADVERSE REACTION NOTED. SUCTIONED MODERATE AMOUNT OF YELLOW THICK SECRETIONS. VINER OPERATOR DONE. TRACH IS PATENT AND SECURED. VENT PLUGGED INTO RED OUTLET, VENT ALARMS ON AND AUDIBLE. NO RESPIRATORY DISTRESS NOTED AT THIS TIME. WILL CONTINUE TO MONITOR T/O SHIFT.
[2022-07-15] MEDS: IV NS 0.9% 1,000 ML IV PRN (22:34)
[2022-07-16] VITALS: BP 87/56
[2022-07-16] MEDS: IPRATROPIUM NEB FS 0.5 MG/2.5 ML AMPUL.NEB NEB SCH ×4 (01:23→19:15)
[2022-07-16] MEDS: ALBUTEROL FS 2.5 MG/3 ML VIAL.NEB NEB SCH ×4 (01:23→19:15)
[2022-07-16 04:00] VITALS: BP 96/63
[2022-07-16] MEDS: TIZANIDINE HCL 4 MG TABLET GT SCH ×3 (04:38→20:33)
[2022-07-16] MEDS: CEFEPIME 2 GM in IV D5W 100 ML IV SCH ×3 (04:39→20:33)
--- NOTE | 2022-07-16 05:59 | NUR ---
attempted to perform abg unable to obtain abg due to heavily contracted pt. multiple sticks performs by different RTs. RN Annette at bedside. charge nurse shameka aware. will endorse to dayshift.
--- NOTE | 2022-07-16 06:15 | NUR ---
RN CLOSING NOTE PT REMAINED STABLE T/O THE NIGHT. ALL VS WNL. STARTED ON JEVITY 1.2 @ 60 CC/HR X 20 HRS. NO RESIDUAL NOTED AFTER 5 HRS. ALL DUE MEDS GIVEN. NEEDS ATTENDED TO. WILL ENDORSE TO AM SHIFT NURSE FOR JEAN.
[2022-07-16 07:22] LABS: BASOPHILS # (AUTO) 0.1 K/uL (0.0-0.2); EOSINOPHILS % (AUTO) 2.1 % (0.0-6.0); HEMATOCRIT 29 % (39-51); HEMOGLOBIN 9.7 g/dL (13.5-17.5); LYMPHOCYTES # (AUTO) 0.6 K/uL (0.8-4.8); LYMPHOCYTES % (AUTO) 9.8 % (20.0-44.0); MEAN CORPUSCULAR HGB CONC 33 g/dl (31.0-36.0); MEAN CORPUSCULAR VOLUME 88 fL (80-96); MONOCYTES # (AUTO) 0.4 K/uL (0.1-1.30); MONOCYTES % (AUTO) 7.2 % (2.0-12.0); NEUTROPHILS # (AUTO) 4.7 K/uL (1.8-8.9); NEUTROPHILS % (AUTO) 79.9 % (43.0-81.0); PLATELET COUNT (AUTO) 128 K/uL (150-450); RED BLOOD CELL COUNT(AUTO) 3.32 MIL/uL (4.5-6.0); WHITE BLOOD COUNT (AUTO) 5.9 K/uL (4.3-11.0)
[2022-07-16 08:00] VITALS: BP 98/50
[2022-07-16 08:35] LABS: ALBUMIN 2.8 g/dL (3.4-5.0); BILIRUBIN,TOTAL 0.5 mg/dL (0.2-1.0); CALCIUM, SERUM 7.8 mg/dL (8.5-10.1); CREATININE 0.8 mg/dL (0.6-1.3); MAGNESIUM 2.2 mg/dL (1.8-2.4); PHOSPHORUS 2.2 mg/dL (2.5-4.9); TOTAL PROTEIN, SERUM 5.9 g/dL (6.4-8.2)
[2022-07-16] MEDS: FERROUS SULFATE UDC 300 MG/5 ML UDC GT SCH (08:57)
[2022-07-16] MEDS: MULTIVIT W/MINERALS 1 TAB TABLET PO SCH (08:57)
[2022-07-16] MEDS: VANCOMYCIN 1 GM in IV D5W 250 ML IV SCH ×3 (08:57→23:20)
[2022-07-16] MEDS: DOCUSATE SODIUM 100 MG CAPSULE PO SCH ×2 (08:58→16:46)
[2022-07-16] MEDS: PANTOPRAZOLE 40 MG VIAL IV SCH ×2 (08:58→20:32)
[2022-07-16] MEDS: SENNOSIDES 8.6 MG TABLET GT SCH ×2 (08:58→16:46)
[2022-07-16] MEDS: DOXAZOSIN MESYLATE (1 MG) 1 MG TABLET GT SCH (08:58)
[2022-07-16] MEDS: ASCORBIC ACID 500 MG TABLET GT SCH (08:58)
[2022-07-16 09:22] LABS: POTASSIUM 2.7 mmol/L (3.5-5.1)
--- NOTE | 2022-07-16 09:26 | NUR ---
RN NOTE POTASSIUM 2.7. DNP VAUGHN NOTIFIED.
[2022-07-16] MEDS: IV NS 0.9% 1,000 ML IV PRN ×2 (09:39→20:55)
[2022-07-16] MEDS ORDERED: IV NS 0.9% 250 ML IV PRN (10:00)
[2022-07-16] MEDS: LEVETIRACETAM SOL (5 ML) 100 MG/ML UDC GT SCH ×2 (10:53→20:32)
[2022-07-16] MEDS: POTASSIUM CL. PREMIX PERIPHER. 50 ML IV SCH ×6 (10:53→16:15)
[2022-07-16] MEDS ORDERED: POTASSIUM CHLORIDE 10 MEQ/50 ML PREMIXED IVPB FOR PERIPHERAL LINE IV ONE (11:00)
[2022-07-16 12:00] VITALS: BP 140/87
--- NOTE | 2022-07-16 13:07 | NUR ---
RN NOTE PT PLACED ON LOW INTERMITTENT SUCTION AND FEEDING HELD PER DR. PIEDAD CRUM.
[2022-07-16] MEDS: ENOXAPARIN SODIUM 40 MG/0.4 ML DISP.SYRIN SQ SCH (13:31)
[2022-07-16] MEDS ORDERED: NEUTRA PHOS 1 POWD.PACKET GT ONE (14:00)
[2022-07-16] MEDS ORDERED: Sodium Phosphate 15 MMOL in IV NS 0.9% 250 ML IV ONE (14:00)
[2022-07-16 16:00] VITALS: BP 124/72
--- NOTE | 2022-07-16 19:30 | NUR ---
FOUNDATION COORDINATOR OPENING NOTE RECEIVED REPORT FROM MICKI GIANG FOR JEAN. PT IN BED, VENT/TRACH DEPENDENT, TOLERATING SETTINGS WELL, NO S/SX OF ACUTE RESPI DISTRESS NOTED AT THIS TIME. O2 SAT >90%. TELE MONITOR SHOWS SB WITH HR IN 50s. NO S/SX OF ACUTE RESPI DISTRESS NOTED AT THIS TIME. IV ACCESS NOTED ON LFA, #20G AND CHESTER ML RUNNING NS @ 100 CC/HR. TUBE FEEDING WITHHELD PER MD'S ORDER, DUE TO ABDOMINAL ILEUS. GT CONNECTED TO LOW INTERMITTENT SUCTION. FC IN PLACE DRAINING YELLOW URINE BY GRAVITY. PT IS QUADRIPLEGIC, BUE AND BLE CONTRACTED. ALL SAFETY MEASURES IN PLACE: BED LOCKED IN LOW POSITION, BED ALARM ON, SR UP X3, CALL LIGHT WITHIN EASY REACH. WILL CONTINUE TO MONITOR.
[2022-07-16 20:00] VITALS: BP 89/47
--- NOTE | 2022-07-16 21:15 | NUR ---
RCVD PT TRACHED PORTEX 7 ON VENT SETTINGS OF AC 16, VT 550, FIO2 40%, PEEP 5. PT IS AWAKE AND ALERT. BREATHING TX GIVEN PER MD'S ORDER, NO ADVERSE REACTION NOTED. POLE SHAVER HELPER DONE. TRACH IS PATENT AND SECURED. VENT PLUGGED INTO RED OUTLET, VENT ALARMS ON AND AUDIBLE. NO S/S OF RESPIRATORY DISTRESS NOTED AT THIS TIME.
[2022-07-17] VITALS: BP 87/60
[2022-07-17] MEDS: IPRATROPIUM NEB FS 0.5 MG/2.5 ML AMPUL.NEB NEB SCH ×4 (00:50→21:00)
[2022-07-17] MEDS: ALBUTEROL FS 2.5 MG/3 ML VIAL.NEB NEB SCH ×4 (00:54→21:00)
[2022-07-17 04:00] VITALS: BP 90/50
[2022-07-17] MEDS: CEFEPIME 2 GM in IV D5W 100 ML IV SCH ×3 (04:34→20:45)
[2022-07-17] MEDS: TIZANIDINE HCL 4 MG TABLET GT SCH ×3 (04:34→20:30)
--- NOTE | 2022-07-17 06:33 | NUR ---
CONDENSER TESTER CLOSING NOTE NO SIGNIFICANT CHANGE T/O THE NIGHT. TELE MONITOR READS SB WITH HR IN THE HIGH 50s.O2 SAT AT 95%. NO S/SX OF RESPI DISTRESS NOTED. ALL DUE MEDS GIVEN. NEEDS ATTENDED TO. TURNED AND REPOSITIONED. PT CURRENTLY NPO, TUBE FEEDING ON HOLD DUE TO ABDOMINAL ILEUS. GT ON LOW INTERMITTENT SUCTION. WILL ENDORSE TO AM SHIFT NURSE FOR JEAN.
[2022-07-17 06:36] LABS: CALCIUM, SERUM 7.6 mg/dL (8.5-10.1); CREATININE 0.7 mg/dL (0.6-1.3); PHOSPHORUS 2.1 mg/dL (2.5-4.9)
[2022-07-17 07:04] LABS: POTASSIUM 2.7 mmol/L (3.5-5.1)
--- NOTE | 2022-07-17 07:11 | NUR ---
RN NOTE PT RECEIVED IN BED, HR SINUS NINA AT 51 ON TELE MONITOR, BP 90/50 AND 87/48. CRITICAL LAB VALUE OF 2.7 RECEIVED. EVELIN MENDES NOTIFIED.
[2022-07-17] MEDS: VANCOMYCIN 1 GM in IV D5W 250 ML IV SCH ×3 (07:36→23:15)
[2022-07-17 08:00] VITALS: BP 126/71
[2022-07-17] MEDS: POTASSIUM CL. PREMIX PERIPHER. 50 ML IV SCH ×6 (08:01→13:25)
[2022-07-17] MEDS: DOXAZOSIN MESYLATE (1 MG) 1 MG TABLET GT SCH (08:57)
[2022-07-17] MEDS: MULTIVIT W/MINERALS 1 TAB TABLET PO SCH (08:57)
[2022-07-17] MEDS: SENNOSIDES 8.6 MG TABLET GT SCH ×2 (08:57→16:00)
[2022-07-17] MEDS: FERROUS SULFATE UDC 300 MG/5 ML UDC GT SCH (08:57)
[2022-07-17] MEDS: LEVETIRACETAM SOL (5 ML) 100 MG/ML UDC GT SCH ×2 (08:57→20:30)
[2022-07-17] MEDS: ASCORBIC ACID 500 MG TABLET GT SCH (08:57)
[2022-07-17] MEDS: DOCUSATE SODIUM 100 MG CAPSULE PO SCH ×2 (08:57→16:00)
[2022-07-17] MEDS: PANTOPRAZOLE 40 MG VIAL IV SCH ×2 (09:01→20:45)
[2022-07-17] MEDS: IV NS 0.9% 1,000 ML IV PRN ×2 (09:10→18:09)
[2022-07-17 12:00] VITALS: BP 99/71
[2022-07-17] MEDS ORDERED: NEUTRA PHOS 1 POWD.PACKET GT ONE (13:00)
[2022-07-17 14:01] LABS: BASOPHILS % (AUTO) 0.8 % (0.0-2.0); HEMATOCRIT 29 % (39-51); HEMOGLOBIN 9.4 g/dL (13.5-17.5); LYMPHOCYTES % (AUTO) 23.3 % (20.0-44.0); MEAN CORPUSCULAR HGB CONC 33 g/dl (31.0-36.0); MEAN CORPUSCULAR VOLUME 90 fL (80-96); MONOCYTES # (AUTO) 0.5 K/uL (0.1-1.30); MONOCYTES % (AUTO) 10.5 % (2.0-12.0); NEUTROPHILS # (AUTO) 2.7 K/uL (1.8-8.9); NEUTROPHILS % (AUTO) 60.4 % (43.0-81.0); PLATELET COUNT (AUTO) 146 K/uL (150-450); RED BLOOD CELL COUNT(AUTO) 3.23 MIL/uL (4.5-6.0); WHITE BLOOD COUNT (AUTO) 4.5 K/uL (4.3-11.0)
[2022-07-17] MEDS: ENOXAPARIN SODIUM 40 MG/0.4 ML DISP.SYRIN SQ SCH (14:40)
--- NOTE | 2022-07-17 14:42 | NUR ---
RN NOTE PER EVELIN MENDES, GIVE LOVENOX TODAY.
[2022-07-17] MEDS: METOCLOPRAMIDE HCL 10 MG/2 ML VIAL IV SCH ×2 (15:56→22:03)
[2022-07-17 16:00] VITALS: BP 112/67
[2022-07-17] MEDS ORDERED: NA PHOS,M-B/NA PHOS,DI-BA 1 EA ENEMA RC PRN (19:00)
--- NOTE | 2022-07-17 19:30 | NUR ---
POLE LIFT OPERATOR OPENING NOTE RECEIVED REPORT FROM MICKI GIANG FOR JEAN. PT IN BED, VENT/TRACH DEPENDENT, TOLERATING SETTINGS WELL, NO S/SX OF ACUTE RESPI DISTRESS NOTED AT THIS TIME. O2 SAT >95%. TELE MONITOR SHOWS SB WITH HR IN 50s. NO S/SX OF ACUTE RESPI DISTRESS NOTED AT THIS TIME. IV ACCESS NOTED ON LFA, #20G AND CHESTER ML RUNNING NS @ 100 CC/HR. PT IS CURRENTLY NPO. TUBE FEEDING WITHHELD PER MD'S ORDER, DUE TO ABDOMINAL ILEUS. FC IN PLACE DRAINING YELLOW URINE BY GRAVITY. PT IS QUADRIPLEGIC, BUE AND BLE CONTRACTED. ALL SAFETY MEASURES IN PLACE: BED LOCKED IN LOW POSITION, BED ALARM ON, SR UP X3, CALL LIGHT WITHIN EASY REACH. WILL CONTINUE TO MONITOR.
[2022-07-17 20:00] VITALS: BP 112/68
--- NOTE | 2022-07-17 20:31 | NUR ---
RN NOTE WITHHELD MEDICATIONS GIVEN VIA GT (KEPPRA AND ZANAFLEX) PER MD (EVELIN MENDES) ORDER. ALL TUBE FEEDINGS AND MEDS VIA THE ROUTE ON HOLD FOR NOW. PT WILL HAVE SMALL BOWEL FOLLOW THROUGH TOMORROW TO SEE WHAT IS GOING ON.
[2022-07-18] VITALS: BP 108/72
[2022-07-18] MEDS: ALBUTEROL FS 2.5 MG/3 ML VIAL.NEB NEB SCH ×4 (02:30→20:30)
[2022-07-18] MEDS: IPRATROPIUM NEB FS 0.5 MG/2.5 ML AMPUL.NEB NEB SCH ×4 (02:30→20:30)
[2022-07-18] MEDS: METOCLOPRAMIDE HCL 10 MG/2 ML VIAL IV SCH ×4 (03:40→21:39)
[2022-07-18 04:00] VITALS: BP 119/76
[2022-07-18] MEDS: IV NS 0.9% 1,000 ML IV PRN (04:01)
[2022-07-18] MEDS: TIZANIDINE HCL 4 MG TABLET GT SCH ×3 (04:12→21:00)
--- NOTE | 2022-07-18 04:12 | NUR ---
RN NOTE WITHHELD MEDICATION GIVEN VIA GT (ZANAFLEX) PER MD (EVELIN MENDES) ORDER. ALL TUBE FEEDINGS AND MEDS VIA THE ROUTE ON HOLD FOR NOW. PT WILL HAVE SMALL BOWEL FOLLOW THROUGH 07/18 TO SEE WHAT IS GOING ON.
[2022-07-18] MEDS: CEFEPIME 2 GM in IV D5W 100 ML IV SCH ×3 (04:15→21:39)
--- NOTE | 2022-07-18 06:41 | NUR ---
RN CLOSING NOTE PT REMAINED STABLE T/O THE NIGHT. NO SIGNIFICANT CHANGES NOTED. ALL VS WNL. DUE MEDS GIVEN. AM/PM CARE DONE. PT HAD ONE LARGE BM. WILL ENDORSE TO AM SHIFT NURSE FOR JEAN.
--- NOTE | 2022-07-18 07:20 | NUR ---
[employer]ORATORY TECHNICIAN OPENING NOTE RECEIVED PT IN BED.PT ON TRACH WITH ORDERED SETTINGS TOLERATING WELL. NO SIGNS OF PAIN OR DISCOMOFRT. O2 SATURATION 98-100%.PT TELE MONITOR SINUS BRADYCARDIA. PT HAS R UPPER MIDLINE. INTACT, PATENT AND FLUSHING WELL. PT IS CURRENTLY NPO DUE TO SMALL BOWEL FOLLOW UP. PT HAS GTUBE. TUBE FEEDINGS ON HOLD DUE TO MD ORDER. DUE TO POSSIBLE ABDOMINAL ILEUS. PRUITT CATHETHER YELLOW COLOR DRAINING TO GRAVITY.PT QUADRIPLEGIC, BUE AND BLE ARE CONTRACTED. ALL SAFETY MEASURES IN PLACE: BED LOCKED IN LOW POSITION, BED ALARM ON, SR UP X2, CALL LIGHT WITHIN EASY REACH.
[2022-07-18 07:44] LABS: BASOPHILS % (AUTO) 0.7 % (0.0-2.0); EOSINOPHILS % (AUTO) 4.2 % (0.0-6.0); HEMATOCRIT 31 % (39-51); LYMPHOCYTES # (AUTO) 1.1 K/uL (0.8-4.8); LYMPHOCYTES % (AUTO) 22.9 % (20.0-44.0); MEAN CORPUSCULAR HGB CONC 32 g/dl (31.0-36.0); MEAN CORPUSCULAR VOLUME 90 fL (80-96); MONOCYTES # (AUTO) 0.3 K/uL (0.1-1.30); MONOCYTES % (AUTO) 7.3 % (2.0-12.0); NEUTROPHILS # (AUTO) 3.1 K/uL (1.8-8.9); NEUTROPHILS % (AUTO) 64.9 % (43.0-81.0); PLATELET COUNT (AUTO) 116 K/uL (150-450); RED BLOOD CELL COUNT(AUTO) 3.42 MIL/uL (4.5-6.0); WHITE BLOOD COUNT (AUTO) 4.7 K/uL (4.3-11.0)
[2022-07-18 07:55] LABS: CALCIUM, SERUM 7.6 mg/dL (8.5-10.1); CREATININE 0.7 mg/dL (0.6-1.3); MAGNESIUM 2.1 mg/dL (1.8-2.4); PHOSPHORUS 2.2 mg/dL (2.5-4.9); POTASSIUM 3.3 mmol/L (3.5-5.1)
[2022-07-18 08:00] VITALS: BP_SYST 145; BP_SYST 90; BP_DIAS 54; BP_DIAS 77
[2022-07-18] MEDS: VANCOMYCIN 1 GM in IV D5W 250 ML IV SCH ×2 (08:14→16:29)
[2022-07-18] MEDS: SENNOSIDES 8.6 MG TABLET GT SCH ×2 (09:00→16:26)
[2022-07-18] MEDS: MULTIVIT W/MINERALS 1 TAB TABLET PO SCH (09:00)
[2022-07-18] MEDS: LEVETIRACETAM SOL (5 ML) 100 MG/ML UDC GT SCH (09:00)
[2022-07-18] MEDS: DOCUSATE SODIUM 100 MG CAPSULE PO SCH ×2 (09:00→16:26)
[2022-07-18] MEDS: ASCORBIC ACID 500 MG TABLET GT SCH (09:00)
[2022-07-18] MEDS: FERROUS SULFATE UDC 300 MG/5 ML UDC GT SCH (09:00)
[2022-07-18] MEDS: DOXAZOSIN MESYLATE (1 MG) 1 MG TABLET GT SCH (09:00)
[2022-07-18] MEDS: PANTOPRAZOLE 40 MG VIAL IV SCH ×2 (09:13→21:39)
[2022-07-18] MEDS ORDERED: LEVETIRACETAM (500MG) 2,000 MG in IV NS 0.9% 100 ML IV SCH (10:00)
[2022-07-18] MEDS: LEVETIRACETAM (500MG) 1,000 MG in IV NS 0.9% 100 ML IV SCH ×2 (10:58→21:39)
--- NOTE | 2022-07-18 11:00 | NUR ---
RN NOTE NOTIFIED DR. MENDES IF PATIENT CAN HAVE KEPPRA SWITCHED TO IV FORM, AND REPLACED ELECTROLYTES PER PHARMACY PROTOCOL.
[2022-07-18] MEDS: POTASSIUM CL. PREMIX PERIPHER. 50 ML IV SCH ×2 (11:33→12:24)
[2022-07-18 12:00] VITALS: BP_SYST 101; BP_SYST 116; BP_DIAS 64; BP_DIAS 69
[2022-07-18] MEDS ORDERED: Sodium Phosphate 30 MMOL in IV NS 0.9% 250 ML IV SCH (12:00)
[2022-07-18] MEDS: ENOXAPARIN SODIUM 40 MG/0.4 ML DISP.SYRIN SQ SCH (14:00)
--- NOTE | 2022-07-18 14:30 | NUR ---
RN NOTE NOTIFIED IF LOVENOX CAN BE HELD TODAY. OKAY TO HOLD LOVENOX PER MD ORDER
[2022-07-18 16:00] VITALS: BP 103/62
--- NOTE | 2022-07-18 19:35 | NUR ---
[employer] CONSULTANT OPENING NOTE RECEIVED PT IN BED. PT ON TRACH WITH ORDERED SETTINGS TOLERATING WELL. NO SIGNS OF PAIN OR DISCOMFORT. O2 SATURATION 98-100%.PT TELE MONITOR SINUS BRADYCARDIA. PT HAS R UPPER MIDLINE RUNNING NS AT 100 ML/HR ANS LFA #20G INTACT, PATENT AND FLUSHING WELL. PT IS CURRENTLY NPO DUE TO SMALL BOWEL FOLLOW UP. PT HAS GTUBE. TUBE FEEDINGS ON HOLD DUE TO MD ORDER. PRUITT CATHETHER IN PLACED WITH YELLOW COLORED URINE DRAINING TO GRAVITY. NOTED PT QUADRIPLEGIC, BUE AND BLE ARE CONTRACTED. ALL SAFETY MEASURES IN PLACE: BED LOCKED IN LOW POSITION, BED ALARM ON, SR UP X2, CALL LIGHT WITHIN EASY REACH. WILL CONTINUE TO MONITOR THROUGHOUT THE SHIFT.
--- NOTE | 2022-07-18 19:43 | NUR ---
RN CLOSING NOTE PT IN BED. PT OBTUNDED AND NONVERBAL. PATIENT ON TRACH SETTINGS. PT TELE MONITOR SINUS BRADYCARDIA. R UA ML INTACT, PATENT, FLUSHING WELL. PT CURRENTLY NPO DUE TO SMALL BOWEL FOLLOW THROUGH. PRUITT CATHETHER IN PLACE. YELLOW COLOR DRAINING TO GRAVITY. PT CONTRACTED UPPER AND LOWER EXTREMITIES. ALL SAFETY MEASURES IN PLACE. BED LOCKED IN LOWEST POSITION, BED ALARM ON, CALL LIGHT WITHIN REACH.
[2022-07-18 20:00] VITALS: BP 150/84
[2022-07-19] VITALS: BP 142/70
[2022-07-19] MEDS: IV NS 0.9% 1,000 ML IV PRN (00:52)
[2022-07-19] MEDS: VANCOMYCIN 1 GM in IV D5W 250 ML IV SCH ×2 (00:52→08:23)
[2022-07-19] MEDS: IPRATROPIUM NEB FS 0.5 MG/2.5 ML AMPUL.NEB NEB SCH ×4 (02:20→21:22)
[2022-07-19] MEDS: ALBUTEROL FS 2.5 MG/3 ML VIAL.NEB NEB SCH ×4 (02:20→21:21)
[2022-07-19 04:00] VITALS: BP 138/75
[2022-07-19] MEDS: METOCLOPRAMIDE HCL 10 MG/2 ML VIAL IV SCH ×4 (04:28→22:24)
[2022-07-19] MEDS: CEFEPIME 2 GM in IV D5W 100 ML IV SCH ×3 (04:29→20:34)
[2022-07-19] MEDS: TIZANIDINE HCL 4 MG TABLET GT SCH ×3 (04:29→20:34)
[2022-07-19 05:58] LABS: BASOPHILS % (AUTO) 0.6 % (0.0-2.0); EOSINOPHILS % (AUTO) 4.8 % (0.0-6.0); HEMATOCRIT 28 % (39-51); HEMOGLOBIN 9.3 g/dL (13.5-17.5); LYMPHOCYTES # (AUTO) 0.7 K/uL (0.8-4.8); LYMPHOCYTES % (AUTO) 19.4 % (20.0-44.0); MEAN CORPUSCULAR HGB CONC 34 g/dl (31.0-36.0); MEAN CORPUSCULAR VOLUME 88 fL (80-96); MONOCYTES # (AUTO) 0.3 K/uL (0.1-1.30); MONOCYTES % (AUTO) 8.6 % (2.0-12.0); NEUTROPHILS # (AUTO) 2.4 K/uL (1.8-8.9); NEUTROPHILS % (AUTO) 66.6 % (43.0-81.0); PLATELET COUNT (AUTO) 128 K/uL (150-450); RED BLOOD CELL COUNT(AUTO) 3.17 MIL/uL (4.5-6.0); WHITE BLOOD COUNT (AUTO) 3.7 K/uL (4.3-11.0)
[2022-07-19 06:47] LABS: CALCIUM, SERUM 7.7 mg/dL (8.5-10.1); CREATININE 0.6 mg/dL (0.6-1.3); MAGNESIUM 1.8 mg/dL (1.8-2.4); PHOSPHORUS 2.2 mg/dL (2.5-4.9)
--- NOTE | 2022-07-19 06:47 | NUR ---
TUBE PUSHER CLOSING NOTE PT REMAINS IN BED. PT ON TRACH WITH ORDERED SETTINGS TOLERATING WELL. NO SIGNS OF PAIN OR DISCOMFORT. O2 SATURATION 98-100%. PT TELE MONITOR SINUS BRADYCARDIA. PT HAS R UPPER MIDLINE RUNNING NS AT 100 ML/HR ANS LFA #20G INTACT, PATENT AND FLUSHING WELL. PT IS CURRENTLY NPO DUE TO SMALL BOWEL FOLLOW UP. PT HAS GTUBE. TUBE FEEDINGS ON HOLD DUE TO MD ORDER. PRUITT CATHETER IN PLACED WITH YELLOW COLORED URINE DRAINING TO GRAVITY. NOTED PT QUADRIPLEGIC, BUE AND BLE ARE CONTRACTED. ALL IV DUE MEDS GIVEN, KEPT DRY AND CLEAN, ALL SAFETY MEASURES IN PLACE: BED LOCKED IN LOW POSITION, BED ALARM ON, SR UP X2, CALL LIGHT WITHIN EASY REACH. WILL ENDORSE TO AM SHIFT NURSE FOR CONTINUITY OF CARE.
--- NOTE | 2022-07-19 07:30 | NUR ---
FIRE SUPPORT SPECIALIST OPENING NOTE RECEIVED PT IN BED.PT ON TRACH WITH ORDERED SETTINGS TOLERATING WELL. NO SIGNS OF PAIN OR DISCOMFORT.O2 SATURATION 100%.PT TELE MONITOR SINUS BRADYCARDIA. PT HAS R UPPER MIDLINE. INTACT, PATENT AND FLUSHING WELL. PT IS CURRENTLY NPO DUE TO SMALL BOWEL FOLLOW UP. PT HAS GTUBE. TUBE FEEDINGS ON HOLD DUE TO MD ORDER. DUE TO POSSIBLE ABDOMINAL ILEUS. PRUITT CATHETER YELLOW COLOR DRAINING TO GRAVITY.PT QUADRIPLEGIC, BUE AND BLE ARE CONTRACTED. ALL SAFETY MEASURES IN PLACE: BED LOCKED IN LOW POSITION, BED ALARM ON, SR UP X2, CALL LIGHT WITHIN EASY REACH.
[2022-07-19 07:59] LABS: POTASSIUM 2.5 mmol/L (3.5-5.1)
[2022-07-19 08:00] VITALS: BP 125/72
[2022-07-19] MEDS: DOXAZOSIN MESYLATE (1 MG) 1 MG TABLET GT SCH (09:00)
[2022-07-19] MEDS: ASCORBIC ACID 500 MG TABLET GT SCH (09:00)
[2022-07-19] MEDS: MULTIVIT W/MINERALS 1 TAB TABLET PO SCH (09:00)
[2022-07-19] MEDS: DOCUSATE SODIUM 100 MG CAPSULE PO SCH ×2 (09:00→18:06)
[2022-07-19] MEDS: SENNOSIDES 8.6 MG TABLET GT SCH ×2 (09:00→18:06)
[2022-07-19] MEDS: FERROUS SULFATE UDC 300 MG/5 ML UDC GT SCH (09:00)
[2022-07-19] MEDS: LEVETIRACETAM (500MG) 1,000 MG in IV NS 0.9% 100 ML IV SCH ×2 (09:25→21:08)
[2022-07-19] MEDS: PANTOPRAZOLE 40 MG VIAL IV SCH ×2 (09:25→20:35)
[2022-07-19] MEDS ORDERED: Sodium Phosphate 30 MMOL in IV NS 0.9% 250 ML IV SCH (10:00)
--- NOTE | 2022-07-19 10:00 | NUR ---
RN NOTE received critical lab, potassium 2.5. ordered potassium 10 meq/50ml x 8 bags. orders carried out
[2022-07-19] MEDS ORDERED: POTASSIUM CHLORIDE 10 MEQ/50 ML PREMIXED IVPB FOR PERIPHERAL LINE IV ONE (10:30)
[2022-07-19] MEDS: POTASSIUM CL. PREMIX PERIPHER. 50 ML IV SCH ×8 (10:45→22:09)
[2022-07-19] MEDS ORDERED: POTASSIUM CL. PREMIX PERIPHER. 50 ML IV SCH (11:00)
[2022-07-19 12:00] VITALS: BP 122/74
[2022-07-19] MEDS: ENOXAPARIN SODIUM 40 MG/0.4 ML DISP.SYRIN SQ SCH (13:46)
[2022-07-19] MEDS ORDERED: DIATR MEGLU/DIATRIZOATE SODIUM 120 ML BOTTLE (GASTROGRAPHIN) ONE (14:09)
--- NOTE | 2022-07-19 14:30 | NUR ---
RN NOTE notified if Lovenox can held due to small bowel xray folllow through procedure today, platelets 128. said okay to give and can be held if necessary called radiology said lovenox also said okay to give.
[2022-07-19] MEDS: VANCOMYCIN 0.75 GM in IV D5W 250 ML IV SCH ×2 (15:04→23:25)
[2022-07-19 16:00] VITALS: BP 117/78
--- NOTE | 2022-07-19 16:00 | NUR ---
rn note pt small bowel follow through xray completed. pt able to resume all previous orders per result of exam, radiologist
--- NOTE | 2022-07-19 18:00 | NUR ---
RN NOTE called dietary office if tube feeding can be sent. said they would followup
--- NOTE | 2022-07-19 19:30 | NUR ---
CONTINUOUS MINING MACHINE COMPANY MINER OPENING NOTE PT IN BED, VENT/TRACH DEPENDENT, TOLERATING SETTINGS WELL, NO S/SX OF ACUTE RESPI DISTRESS NOTED AT THIS TIME. O2 SAT >95%. TELE MONITOR SHOWS SB WITH HR IN 50s. NO S/SX OF ACUTE RESPI DISTRESS NOTED AT THIS TIME. IV ACCESS NOTED ON CHESTER ML RUNNING NS @ 100 CC/HR. TUBE FEEDING TO BE RESUMED. FC IN PLACE DRAINING YELLOW URINE BY GRAVITY. PT IS QUADRIPLEGIC, BUE AND BLE CONTRACTED. ALL SAFETY MEASURES IN PLACE: BED LOCKED IN LOW POSITION, BED ALARM ON, SR UP X3, CALL LIGHT WITHIN EASY REACH. WILL CONTINUE TO MONITOR.
--- NOTE | 2022-07-19 19:36 | NUR ---
RN CLOSING NOTE PT IN BED. PT OBTUNDED AND NONVERBAL. PT HEAD OF BED ELEVATED.PATIENT ON TRACH SETTINGS. PT TELE MONITOR SINUS BRADYCARDIA 57. R UA ML INTACT, PATENT, FLUSHING WELL. PT ABLE TO RESUME PREVIOUS ORDERS. PRUITT CATHETER IN PLACE. YELLOW COLOR DRAINING TO GRAVITY. PT CONTRACTED UPPER AND LOWER EXTREMITIES. KEPT CLEAN AND DRY. ALL SAFETY MEASURES IN PLACE. BED LOCKED IN LOWEST POSITION, BED ALARM ON, CALL LIGHT WITHIN REACH.
[2022-07-19 20:00] VITALS: BP 156/88
--- NOTE | 2022-07-19 20:04 | NUR ---
RN NOTE NOTIFIED DR. ACOSTA IF TUBE FEEDINGS CAN BE RESUMED AND GT MEDICATIONS RESUMED DUE TO RESULT OF SMALL BOWEL FOLLOW THROUGH XRAY SHOWED NO BOWEL OBSTRUCTION. DR ACKNOWLEDGED ORDERS AND AWARE, AND SAID OK.
[2022-07-19] MEDS: JEVITY 1.2 CAL 1,000 ML BOTTLE GT PRN (20:36)
[2022-07-20] VITALS: BP 135/70
[2022-07-20] MEDS: IV NS 0.9% 1,000 ML IV PRN ×2 (00:32→15:54)
[2022-07-20] MEDS: ALBUTEROL FS 2.5 MG/3 ML VIAL.NEB NEB SCH ×4 (02:35→20:22)
[2022-07-20] MEDS: IPRATROPIUM NEB FS 0.5 MG/2.5 ML AMPUL.NEB NEB SCH ×4 (02:35→20:22)
[2022-07-20 04:00] VITALS: BP 126/60
[2022-07-20] MEDS: TIZANIDINE HCL 4 MG TABLET GT SCH ×3 (04:10→21:05)
[2022-07-20] MEDS: CEFEPIME 2 GM in IV D5W 100 ML IV SCH ×3 (04:10→21:01)
[2022-07-20] MEDS: METOCLOPRAMIDE HCL 10 MG/2 ML VIAL IV SCH ×4 (04:10→21:06)
--- NOTE | 2022-07-20 07:30 | NUR ---
FAMILY DINNER SERVICE SPECIALIST OPENING NOTE RECEIVED PT IN BED.PT ON TRACH WITH ORDERED SETTINGS TOLERATING WELL. NO SIGNS OF PAIN OR DISCOMFORT.O2 SATURATION 100%.PT TELE MONITOR SINUS BRADYCARDIA. PT HAS R UPPER MIDLINE. INTACT, PATENT AND FLUSHING WELL. PT HAS GTUBE. RUNNING TUBE FEEDING. NO RESIDUAL VOLUME NOTED.PRUITT CATHETER YELLOW COLOR DRAINING TO GRAVITY.PT QUADRIPLEGIC, BUE AND BLE ARE CONTRACTED. ALL SAFETY MEASURES IN PLACE: BED LOCKED IN LOW POSITION, BED ALARM ON, SR UP X2, CALL LIGHT WITHIN EASY REACH.
[2022-07-20 07:43] LABS: BASOPHILS % (AUTO) 0.5 % (0.0-2.0); EOSINOPHILS % (AUTO) 3.6 % (0.0-6.0); HEMATOCRIT 30 % (39-51); HEMOGLOBIN 10.3 g/dL (13.5-17.5); LYMPHOCYTES # (AUTO) 0.8 K/uL (0.8-4.8); LYMPHOCYTES % (AUTO) 16.2 % (20.0-44.0); MEAN CORPUSCULAR HGB CONC 34 g/dl (31.0-36.0); MEAN CORPUSCULAR VOLUME 88 fL (80-96); MONOCYTES # (AUTO) 0.5 K/uL (0.1-1.30); MONOCYTES % (AUTO) 10.3 % (2.0-12.0); NEUTROPHILS # (AUTO) 3.5 K/uL (1.8-8.9); NEUTROPHILS % (AUTO) 69.4 % (43.0-81.0); PLATELET COUNT (AUTO) 143 K/uL (150-450); RED BLOOD CELL COUNT(AUTO) 3.45 MIL/uL (4.5-6.0); WHITE BLOOD COUNT (AUTO) 5.1 K/uL (4.3-11.0)
[2022-07-20 08:00] VITALS: BP 133/68
[2022-07-20 08:15] LABS: CALCIUM, SERUM 8.1 mg/dL (8.5-10.1); CREATININE 0.6 mg/dL (0.6-1.3); MAGNESIUM 1.8 mg/dL (1.8-2.4); POTASSIUM 3.5 mmol/L (3.5-5.1)
[2022-07-20] MEDS: DOXAZOSIN MESYLATE (1 MG) 1 MG TABLET GT SCH (08:51)
[2022-07-20] MEDS: SENNOSIDES 8.6 MG TABLET GT SCH ×2 (08:52→16:04)
[2022-07-20] MEDS: ASCORBIC ACID 500 MG TABLET GT SCH (08:52)
[2022-07-20] MEDS: PANTOPRAZOLE 40 MG VIAL IV SCH (08:52)
[2022-07-20] MEDS: MULTIVIT W/MINERALS 1 TAB TABLET PO SCH (08:52)
[2022-07-20] MEDS: FERROUS SULFATE UDC 300 MG/5 ML UDC GT SCH (08:52)
[2022-07-20] MEDS: DOCUSATE SODIUM LIQ 100 MG/10 ML UDC GT SCH ×2 (09:03→16:04)
[2022-07-20] MEDS: LEVETIRACETAM (500MG) 1,000 MG in IV NS 0.9% 100 ML IV SCH (09:03)
[2022-07-20] MEDS: VANCOMYCIN 0.75 GM in IV D5W 250 ML IV SCH ×3 (10:24→23:33)
[2022-07-20] MEDS ORDERED: LACTULOSE 10 G/15 ML UDC (PYXIS) GT ONE ×2 (11:30→14:30)
[2022-07-20 12:00] VITALS: BP 126/63
[2022-07-20] MEDS ORDERED: LACTULOSE 10 G/15 ML UDC (PYXIS) GT SCH ×2 (12:30→13:14)
--- NOTE | 2022-07-20 14:00 | NUR ---
RN NOTE MADE ROUNDS WITH . PT MIGHT HAVE FECAL IMPACTION AND SUGGEST CONSTIPATION MEDICATIONS. MD ORDERED LACTULOSE. ORDERS NOTED AND CARRIED OUT.
[2022-07-20] MEDS: ENOXAPARIN SODIUM 40 MG/0.4 ML DISP.SYRIN SQ SCH (14:01)
[2022-07-20 16:00] VITALS: BP 115/61
[2022-07-20] MEDS: JEVITY 1.2 CAL 1,000 ML BOTTLE GT PRN (18:39)
--- NOTE | 2022-07-20 19:00 | NUR ---
RN NOTE PROVIDED UPDATES TO FAMILY
[2022-07-20 20:00] VITALS: BP 119/69
--- NOTE | 2022-07-20 20:06 | NUR ---
RN CLOSING NOTE PT IN BED.PT ON TRACH WITH ORDERED SETTINGS TOLERATING WELL. NO SIGNS OF PAIN OR DISCOMFORT.O2 SATURATION 100%.PT TELE MONITOR SINUS BRADYCARDIA. PT HAS R UPPER MIDLINE. INTACT, PATENT AND FLUSHING WELL. PT HAS GTUBE. RUNNING TUBE FEEDING. NO RESIDUAL VOLUME NOTED.KEPT CLEAN AND DRYFOLEY CATHETER YELLOW COLOR DRAINING TO GRAVITY.PT QUADRIPLEGIC, BUE AND BLE ARE CONTRACTED. ALL SAFETY MEASURES IN PLACE: BED LOCKED IN LOW POSITION, BED ALARM ON, SR UP X2, CALL LIGHT WITHIN EASY REACH.
[2022-07-20] MEDS: LEVETIRACETAM SOL (5 ML) 100 MG/ML UDC GT SCH (21:05)
[2022-07-20] MEDS: PANTOPRAZOLE 40 MG/PACK PACK GT SCH (21:05)
--- NOTE | 2022-07-20 21:45 | NUR ---
RN NOTE PT HAD A LARGE BM OF LOOSE CONSISTENCY AND DARK/BLACK IN COLOR. CLEANED AND KEPT COMFORTABLE.
[2022-07-21] VITALS: BP 90/54
[2022-07-21] MEDS: IPRATROPIUM NEB FS 0.5 MG/2.5 ML AMPUL.NEB NEB SCH ×4 (01:55→19:52)
[2022-07-21] MEDS: ALBUTEROL FS 2.5 MG/3 ML VIAL.NEB NEB SCH ×4 (01:55→19:52)
--- NOTE | 2022-07-21 02:47 | NUR ---
BENEFITS DIRECTOR OPENING NOTE PT IN BED, VENT/TRACH DEPENDENT, TOLERATING SETTINGS WELL, NO S/SX OF ACUTE RESPI DISTRESS NOTED AT THIS TIME. O2 SAT AT 100%. TELE MONITOR SHOWS SR WITH HR IN 80s. NO S/SX OF ACUTE RESPI DISTRESS NOTED AT THIS TIME. IV ACCESS NOTED ON CHESTER ML RUNNING NS @ 100 CC/HR. GTF RUNNING JEVITY 1.2 @ 65 CC/HR. FC IN PLACE DRAINING YELLOW URINE BY GRAVITY. PT IS QUADRIPLEGIC, BUE AND BLE CONTRACTED. ALL SAFETY MEASURES IN PLACE: BED LOCKED IN LOW POSITION, BED ALARM ON, SR UP X3, CALL LIGHT WITHIN EASY REACH. WILL CONTINUE TO MONITOR.
[2022-07-21 04:00] VITALS: BP 95/55
[2022-07-21] MEDS: METOCLOPRAMIDE HCL 10 MG/2 ML VIAL IV SCH ×4 (04:07→22:29)
[2022-07-21] MEDS: CEFEPIME 2 GM in IV D5W 100 ML IV SCH ×3 (04:07→21:10)
[2022-07-21] MEDS: TIZANIDINE HCL 4 MG TABLET GT SCH ×3 (04:07→21:11)
[2022-07-21] MEDS: IV NS 0.9% 1,000 ML IV PRN ×2 (04:20→17:25)
--- NOTE | 2022-07-21 07:54 | NUR ---
RN OPENING NOTES PT IN BED, VENT/TRACH DEPENDENT, TOLERATING SETTINGS WELL, NO S/SX OF ACUTE RESPI DISTRESS NOTED AT THIS TIME. O2 SAT AT 100%. TELE MONITOR SHOWS SB WITH HR AT 53. NO S/SX OF ACUTE RESPI DISTRESS NOTED AT THIS TIME. IV ACCESS NOTED ON CHESTER ML RUNNING NS @ 100 CC/HR. GTF RUNNING JEVITY 1.2 @ 65 CC/HR. FC IN PLACE DRAINING YELLOW URINE BY GRAVITY. PT IS QUADRIPLEGIC, BUE AND BLE CONTRACTED. ALL SAFETY MEASURES IN PLACE: BED LOCKED IN LOW POSITION, BED ALARM ON, SR UP X3, CALL LIGHT WITHIN EASY REACH. WILL CONTINUE PLAN OF CARE AND ANTICIPATE NEEDS.
[2022-07-21 08:00] VITALS: BP 100/62
[2022-07-21] MEDS: FERROUS SULFATE UDC 300 MG/5 ML UDC GT SCH (08:13)
[2022-07-21] MEDS: DOXAZOSIN MESYLATE (1 MG) 1 MG TABLET GT SCH (08:13)
[2022-07-21] MEDS: ASCORBIC ACID 500 MG TABLET GT SCH (08:13)
[2022-07-21] MEDS: SENNOSIDES 8.6 MG TABLET GT SCH ×2 (08:13→16:12)
[2022-07-21] MEDS: DOCUSATE SODIUM LIQ 100 MG/10 ML UDC GT SCH ×2 (08:13→16:12)
[2022-07-21] MEDS: PANTOPRAZOLE 40 MG/PACK PACK GT SCH ×2 (08:13→21:11)
[2022-07-21] MEDS: MULTIVIT W/MINERALS 1 TAB TABLET PO SCH (08:13)
[2022-07-21] MEDS: LEVETIRACETAM SOL (5 ML) 100 MG/ML UDC GT SCH ×2 (08:13→21:11)
[2022-07-21] MEDS: VANCOMYCIN 0.75 GM in IV D5W 250 ML IV SCH ×2 (08:14→16:14)
[2022-07-21 11:40] LABS: BASOPHILS % (AUTO) 0.5 % (0.0-2.0); EOSINOPHILS % (AUTO) 5.3 % (0.0-6.0); HEMATOCRIT 31 % (39-51); HEMOGLOBIN 10.2 g/dL (13.5-17.5); LYMPHOCYTES # (AUTO) 0.7 K/uL (0.8-4.8); LYMPHOCYTES % (AUTO) 16.3 % (20.0-44.0); MEAN CORPUSCULAR HGB CONC 33 g/dl (31.0-36.0); MEAN CORPUSCULAR VOLUME 89 fL (80-96); MONOCYTES # (AUTO) 0.4 K/uL (0.1-1.30); MONOCYTES % (AUTO) 9.3 % (2.0-12.0); NEUTROPHILS # (AUTO) 3.2 K/uL (1.8-8.9); NEUTROPHILS % (AUTO) 68.6 % (43.0-81.0); PLATELET COUNT (AUTO) 142 K/uL (150-450); RED BLOOD CELL COUNT(AUTO) 3.47 MIL/uL (4.5-6.0); WHITE BLOOD COUNT (AUTO) 4.6 K/uL (4.3-11.0)
[2022-07-21 11:57] LABS: CALCIUM, SERUM 8.4 mg/dL (8.5-10.1); CREATININE 0.5 mg/dL (0.6-1.3); MAGNESIUM 1.8 mg/dL (1.8-2.4); PHOSPHORUS 3.1 mg/dL (2.5-4.9)
[2022-07-21 12:00] VITALS: BP 108/71
[2022-07-21] MEDS: ENOXAPARIN SODIUM 40 MG/0.4 ML DISP.SYRIN SQ SCH (13:17)
[2022-07-21 16:00] VITALS: BP 114/70
--- NOTE | 2022-07-21 18:31 | NUR ---
RN CLOSING NOTES PT IN BED, VENT/TRACH DEPENDENT, TOLERATING SETTINGS WELL, NO S/SX OF ACUTE RESPI DISTRESS NOTED AT THIS TIME. O2 SAT AT 100%. TELE MONITOR SHOWS SB WITH HR AT 53. NO S/SX OF ACUTE RESPI DISTRESS NOTED AT THIS TIME. IV ACCESS NOTED ON CHESTER ML RUNNING NS @ 100 CC/HR. GTF RUNNING JEVITY 1.2 @ 65 CC/HR. FC IN PLACE DRAINING YELLOW URINE BY GRAVITY. PT IS QUADRIPLEGIC, BUE AND BLE CONTRACTED. ALL SAFETY MEASURES IN PLACE: BED LOCKED IN LOW POSITION, BED ALARM ON, SR UP X3, CALL LIGHT WITHIN EASY REACH. WILL ENDORSE TO NIGHTSHIFT RN FORM CONTINUATION OF CARE.
[2022-07-21 20:00] VITALS: BP 118/71
--- NOTE | 2022-07-21 20:39 | NUR ---
SALES DEVELOPER OPENING NOTES: RECEIVED PATIENT AWAKE IN BED ACCOMPANIED BY FAMILY, BED IN LOW POSITION, CALL LIGHTS WITHIN REACH, NO COMPLAIN OF PAIN AND DISCOMFORT AT THIS TIME, ON MECH VENT SATURATING WELL, IV LINE AT CHESTER ML WITH ONGOING NSS@100ML/HR INFUSING WELL, ON TELE MONITOR- SR-121 ON PRUITT CATHETER WITH 100CC URINE OUTPUT, PATIENT IS NONE VERBAL OBTUNDED AND OPEN EYES, NO FACIAL GRIMACING WAS OBSERVED, PATIENT KEPT CLEAN AND DRY ALL NEEDS MET WILL CONTINUE TO MONITOR.
[2022-07-21] MEDS: JEVITY 1.2 CAL 1,000 ML BOTTLE GT PRN (21:01)
[2022-07-22] VITALS: BP 100/60
[2022-07-22] MEDS: VANCOMYCIN 0.75 GM in IV D5W 250 ML IV SCH ×3 (00:15→17:36)
[2022-07-22] MEDS: IPRATROPIUM NEB FS 0.5 MG/2.5 ML AMPUL.NEB NEB SCH ×4 (01:35→20:01)
[2022-07-22] MEDS: ALBUTEROL FS 2.5 MG/3 ML VIAL.NEB NEB SCH ×4 (01:35→20:01)
[2022-07-22 04:00] VITALS: BP 111/72
[2022-07-22] MEDS: METOCLOPRAMIDE HCL 10 MG/2 ML VIAL IV SCH ×4 (04:19→22:04)
[2022-07-22] MEDS: CEFEPIME 2 GM in IV D5W 100 ML IV SCH ×3 (05:38→22:03)
[2022-07-22] MEDS: TIZANIDINE HCL 4 MG TABLET GT SCH ×3 (05:38→22:03)
--- NOTE | 2022-07-22 06:10 | NUR ---
RT Pt recvd on current vent settings: AC/VC RR 16, VT 550, FIO2 40%, PEEP +5 and pt familia vent well. Portex 7 cuffed trach is patent, appears midline and secured. Neb tx given and familia well. Suction Q2/PRN and trach care done. No SOB or respiratory distress noted throughout shift. SpO2 >92% maintained. Vent is plugged into red outlet with alarms on and audible. Spare trach and ambu bag at bedside.
[2022-07-22] MEDS: IV NS 0.9% 1,000 ML IV PRN ×2 (06:37→15:54)
--- NOTE | 2022-07-22 06:50 | NUR ---
BAND SAW MARKER CLOSING NOTES: PATIENT SLEEP IN BED COMFORTABLY, AROUSABLE TO VERBAL STIMULI, BED IN LOW POSITION, CALL LIGHTS WITHIN REACH, NO COMPLAIN OF PAIN AND DISCOMFORT AT THIS TIME, ON MECHANICAL VENT SATURATING WELL, PATIENT ON TELE MONITOR.ON PRUITT CATHETER-950 CC OUTPUT, ON GTUBE FEEDING OF JEVITY 1.2 @65ML/HR INFUSING WELL, PATIENT KEPT CLEAN AND DRY ALL NEEDS MET ENDORSE TO INCOMING SHIFT.
[2022-07-22 07:43] LABS: BASOPHILS % (AUTO) 0.7 % (0.0-2.0); EOSINOPHILS % (AUTO) 5.9 % (0.0-6.0); HEMATOCRIT 32 % (39-51); HEMOGLOBIN 10.3 g/dL (13.5-17.5); LYMPHOCYTES # (AUTO) 1.3 K/uL (0.8-4.8); LYMPHOCYTES % (AUTO) 24.1 % (20.0-44.0); MEAN CORPUSCULAR HGB CONC 33 g/dl (31.0-36.0); MEAN CORPUSCULAR VOLUME 90 fL (80-96); MONOCYTES # (AUTO) 0.4 K/uL (0.1-1.30); MONOCYTES % (AUTO) 8.1 % (2.0-12.0); NEUTROPHILS # (AUTO) 3.3 K/uL (1.8-8.9); NEUTROPHILS % (AUTO) 61.2 % (43.0-81.0); PLATELET COUNT (AUTO) 166 K/uL (150-450); RED BLOOD CELL COUNT(AUTO) 3.51 MIL/uL (4.5-6.0); WHITE BLOOD COUNT (AUTO) 5.4 K/uL (4.3-11.0)
[2022-07-22 08:00] VITALS: BP 106/58
[2022-07-22 08:11] LABS: CALCIUM, SERUM 8.3 mg/dL (8.5-10.1); CREATININE 0.5 mg/dL (0.6-1.3); PHOSPHORUS 3.6 mg/dL (2.5-4.9); POTASSIUM 3.6 mmol/L (3.5-5.1)
[2022-07-22] MEDS: DOCUSATE SODIUM LIQ 100 MG/10 ML UDC GT SCH ×2 (08:28→17:34)
[2022-07-22] MEDS: LEVETIRACETAM SOL (5 ML) 100 MG/ML UDC GT SCH ×2 (08:28→22:03)
[2022-07-22] MEDS: SENNOSIDES 8.6 MG TABLET GT SCH ×2 (08:29→17:34)
[2022-07-22] MEDS: MULTIVIT W/MINERALS 1 TAB TABLET PO SCH (08:29)
[2022-07-22] MEDS: DOXAZOSIN MESYLATE (1 MG) 1 MG TABLET GT SCH (08:29)
[2022-07-22] MEDS: ASCORBIC ACID 500 MG TABLET GT SCH (08:29)
[2022-07-22] MEDS: PANTOPRAZOLE 40 MG/PACK PACK GT SCH ×2 (08:29→22:03)
[2022-07-22] MEDS: FERROUS SULFATE UDC 300 MG/5 ML UDC GT SCH (08:29)
[2022-07-22 12:00] VITALS: BP 139/75
[2022-07-22 16:00] VITALS: BP 132/78
[2022-07-22] MEDS ORDERED: MINERAL OIL 133 ML (PYXIS) 1 EA ENEMA RC ONE (16:30)
[2022-07-22] MEDS ORDERED: LACTULOSE 10 G/15 ML UDC (PYXIS) PO PRN (16:30)
[2022-07-22] MEDS: DOCUSATE SODIUM 100 MG CAPSULE PO SCH (17:00)
--- NOTE | 2022-07-22 19:01 | NUR ---
RN CLOSING NOTE PT IN BE VENT TRACH NOT FIGHTING VENTILATOR BREATHING IS EVEN AND UNLABORED O2 SAT 100%. CHESTER MID LINE IN PLACE NO S/S OF INFLITRATION DRESSING CLEAN AND DRY, NS RUNNING AT 100 ML/H. NO FEVER NO HYPOTENSION. HOB ELEVATED TO 45 DEGREE ANGLE BED LOCKED.
--- NOTE | 2022-07-22 19:15 | NUR ---
RN NOTE Patient in bed, obtunded, family at bedside, in no acute distress, on trach Portex 7 to vent with settings as prescribed: AC 16, TV 550, FIO2 40%, PEEP 5, SR on the monitor HR is 71. CHESTER midline patent and flushing well with NS infusing at 100 ml/hr, Gtube in place positive placement noted with Jevity at 65 ml/hr. Davies catheter draining to a clear, yellow output. Safety measures in place, will continue to monitor and reassess.
[2022-07-22 20:00] VITALS: BP 111/62
[2022-07-23] VITALS: BP 92/49
[2022-07-23] MEDS: VANCOMYCIN 0.75 GM in IV D5W 250 ML IV SCH ×3 (00:31→16:59)
[2022-07-23] MEDS: IPRATROPIUM NEB FS 0.5 MG/2.5 ML AMPUL.NEB NEB SCH ×4 (02:31→20:00)
[2022-07-23] MEDS: ALBUTEROL FS 2.5 MG/3 ML VIAL.NEB NEB SCH ×4 (02:31→20:00)
[2022-07-23 04:00] VITALS: BP 108/63
[2022-07-23] MEDS: METOCLOPRAMIDE HCL 10 MG/2 ML VIAL IV SCH ×4 (05:16→22:00)
[2022-07-23] MEDS: TIZANIDINE HCL 4 MG TABLET GT SCH ×3 (05:16→21:59)
[2022-07-23] MEDS: CEFEPIME 2 GM in IV D5W 100 ML IV SCH ×3 (05:16→21:59)
[2022-07-23 07:12] LABS: BASOPHILS % (AUTO) 0.6 % (0.0-2.0); EOSINOPHILS % (AUTO) 4.7 % (0.0-6.0); HEMATOCRIT 32 % (39-51); HEMOGLOBIN 10.6 g/dL (13.5-17.5); LYMPHOCYTES # (AUTO) 0.9 K/uL (0.8-4.8); LYMPHOCYTES % (AUTO) 19.5 % (20.0-44.0); MEAN CORPUSCULAR HGB CONC 33 g/dl (31.0-36.0); MEAN CORPUSCULAR VOLUME 90 fL (80-96); MONOCYTES # (AUTO) 0.4 K/uL (0.1-1.30); MONOCYTES % (AUTO) 8.2 % (2.0-12.0); NEUTROPHILS # (AUTO) 3.2 K/uL (1.8-8.9); PLATELET COUNT (AUTO) 135 K/uL (150-450); WHITE BLOOD COUNT (AUTO) 4.7 K/uL (4.3-11.0)
[2022-07-23 07:38] LABS: CALCIUM, SERUM 8.4 mg/dL (8.5-10.1); CREATININE 0.5 mg/dL (0.6-1.3); POTASSIUM 3.7 mmol/L (3.5-5.1)
[2022-07-23 07:48] LABS: MAGNESIUM 1.9 mg/dL (1.8-2.4); PHOSPHORUS 3.6 mg/dL (2.5-4.9)
[2022-07-23 08:00] VITALS: BP_SYST 109; BP_SYST 91; BP_DIAS 50; BP_DIAS 61
[2022-07-23] MEDS: DOXAZOSIN MESYLATE (1 MG) 1 MG TABLET GT SCH (09:00)
[2022-07-23] MEDS: LEVETIRACETAM SOL (5 ML) 100 MG/ML UDC GT SCH ×2 (09:23→21:59)
[2022-07-23] MEDS: MULTIVIT W/MINERALS 1 TAB TABLET PO SCH (09:23)
[2022-07-23] MEDS: ENOXAPARIN SODIUM 40 MG/0.4 ML DISP.SYRIN SQ SCH (09:23)
[2022-07-23] MEDS: PANTOPRAZOLE 40 MG/PACK PACK GT SCH ×2 (09:23→21:59)
[2022-07-23] MEDS: FERROUS SULFATE UDC 300 MG/5 ML UDC GT SCH (09:24)
[2022-07-23] MEDS: DOCUSATE SODIUM LIQ 100 MG/10 ML UDC GT SCH ×2 (09:24→17:00)
[2022-07-23] MEDS: ASCORBIC ACID 500 MG TABLET GT SCH (09:24)
[2022-07-23] MEDS: SENNOSIDES 8.6 MG TABLET GT SCH ×2 (09:24→17:00)
[2022-07-23] MEDS: DOCUSATE SODIUM 100 MG CAPSULE PO SCH ×2 (09:25→17:00)
[2022-07-23 12:00] VITALS: BP 109/61
[2022-07-23] MEDS: IV NS 0.9% 1,000 ML IV PRN ×2 (13:37→23:50)
[2022-07-23 16:00] VITALS: BP 107/67
--- NOTE | 2022-07-23 19:10 | NUR ---
RN NOTE Patient in bed, obtunded, family at bedside, in no acute distress, on trach Portex 7 to vent with settings as prescribed: AC 16, TV 550, FIO2 40%, PEEP 5, SR on the monitor HR is 74. CHESTER midline patent and flushing well with NS infusing at 100 ml/hr, Gtube in place positive placement noted with Jevity at 65 ml/hr. Davies catheter draining to a clear, yellow output. Safety measures in place, will continue to monitor and reassess.
--- NOTE | 2022-07-23 19:50 | NUR ---
RN CLOSING NOTE PT A/OX2, ON VENT VENTILATOR BREATHING IS EVEN AND UNLABORED O2 SAT 100%. CHESTER MID LINE IN PLACE NO S/S OF INFILTRATION DRESSING CLEAN AND DRY, NS RUNNING AT 100 ML/HR. PRUITT CATHETER IN PLACE DRAINING YELLOW URINE VIA GRAVITY. ALL SAFETY MEASURES IN PLACE, BED LOCKED IN LOWEST POSITION. CALL LIGHT WITHIN REACH. WILL ENDORSE CONTINUITY OF CARE TO DISPATCHER RELAY NURSE
[2022-07-23 20:00] VITALS: BP 112/60
[2022-07-24 00:06] VITALS: BP 93/52
[2022-07-24] MEDS: VANCOMYCIN 0.75 GM in IV D5W 250 ML IV SCH ×3 (00:08→16:50)
[2022-07-24] MEDS: IPRATROPIUM NEB FS 0.5 MG/2.5 ML AMPUL.NEB NEB SCH ×4 (01:44→20:13)
[2022-07-24] MEDS: ALBUTEROL FS 2.5 MG/3 ML VIAL.NEB NEB SCH ×4 (01:44→20:13)
[2022-07-24 04:00] VITALS: BP 116/62
[2022-07-24] MEDS: TIZANIDINE HCL 4 MG TABLET GT SCH ×3 (05:16→21:03)
[2022-07-24] MEDS: CEFEPIME 2 GM in IV D5W 100 ML IV SCH ×3 (05:16→21:04)
[2022-07-24] MEDS: METOCLOPRAMIDE HCL 10 MG/2 ML VIAL IV SCH ×4 (05:16→21:03)
[2022-07-24 06:45] LABS: BASOPHILS % (AUTO) 0.6 % (0.0-2.0); EOSINOPHILS % (AUTO) 4.1 % (0.0-6.0); HEMATOCRIT 30 % (39-51); HEMOGLOBIN 9.9 g/dL (13.5-17.5); LYMPHOCYTES # (AUTO) 0.9 K/uL (0.8-4.8); LYMPHOCYTES % (AUTO) 17.9 % (20.0-44.0); MEAN CORPUSCULAR HGB CONC 33 g/dl (31.0-36.0); MEAN CORPUSCULAR VOLUME 89 fL (80-96); MONOCYTES # (AUTO) 0.5 K/uL (0.1-1.30); MONOCYTES % (AUTO) 9.3 % (2.0-12.0); NEUTROPHILS # (AUTO) 3.4 K/uL (1.8-8.9); NEUTROPHILS % (AUTO) 68.1 % (43.0-81.0); PLATELET COUNT (AUTO) 151 K/uL (150-450); WHITE BLOOD COUNT (AUTO) 4.9 K/uL (4.3-11.0)
[2022-07-24 07:16] LABS: CREATININE 0.6 mg/dL (0.6-1.3); PHOSPHORUS 3.6 mg/dL (2.5-4.9); POTASSIUM 3.6 mmol/L (3.5-5.1)
--- NOTE | 2022-07-24 07:30 | NUR ---
STEELWORKER AM NOTES: RECEIVED PATIENT AWAKE IN BED, OBTUNDED, NON VERBAL,WITH PORTEX 7 TRACH TO MECHANICAL VENT;SETTING ORDERED AC 16 TV 550 FIO2 40% PEEP 5, BREATHING EVEN AND UNLABORED,O2 AT 100%. SB HR 58 ON MONITOR, NO SIGNS OF PAIN OR DISCOMFORT, CHESTER MIDLINE WITH NS AT 100 ML/HR INFUSING WELL, SITE CLEAR. JEVITY 1.2 INFUSING AT 65 ML/HR. G TUBE CHECKED FOR PLACEMENT, 50 ML RESIDUAL. PRUITT CATH IN PLACE. SEE NURSING FLOWSHEET FOR SKIN ISSUES. PT WITH BUE CONTRACTIONS. WILL TURN AN REPOSITION Q 2 HOURS. NEEDS ANTICIPATED. WILL TURN AND REPOSITION Q 2 HOURS. BED LOW LOCKED, WILL CONTINUE TO MONITOR.
[2022-07-24 08:00] VITALS: BP 90/50
[2022-07-24] MEDS: FERROUS SULFATE UDC 300 MG/5 ML UDC GT SCH (08:37)
[2022-07-24] MEDS: SENNOSIDES 8.6 MG TABLET GT SCH ×2 (08:38→16:50)
[2022-07-24] MEDS: PANTOPRAZOLE 40 MG/PACK PACK GT SCH ×2 (08:38→21:03)
[2022-07-24] MEDS: LEVETIRACETAM SOL (5 ML) 100 MG/ML UDC GT SCH ×2 (08:38→21:03)
[2022-07-24] MEDS: MULTIVIT W/MINERALS 1 TAB TABLET PO SCH (08:38)
[2022-07-24] MEDS: ASCORBIC ACID 500 MG TABLET GT SCH (08:40)
[2022-07-24] MEDS: DOXAZOSIN MESYLATE (1 MG) 1 MG TABLET GT SCH (08:40)
[2022-07-24] MEDS: DOCUSATE SODIUM LIQ 100 MG/10 ML UDC GT SCH ×2 (08:48→16:50)
[2022-07-24] MEDS: ENOXAPARIN SODIUM 40 MG/0.4 ML DISP.SYRIN SQ SCH (08:50)
--- NOTE | 2022-07-24 09:30 | NUR ---
RN NOTES DUE MEDS GIVEN
[2022-07-24] MEDS: IV NS 0.9% 1,000 ML IV PRN (11:41)
[2022-07-24] MEDS: JEVITY 1.2 CAL 1,000 ML BOTTLE GT PRN (11:41)
[2022-07-24 12:00] VITALS: BP 105/61
[2022-07-24 16:00] VITALS: BP 97/53
--- NOTE | 2022-07-24 18:46 | NUR ---
RADAR SCIENTIST CLOSING NOTES: PATIENT RESTING IN BED, OBTUNDED, NON VERBAL,WITH PORTEX 7 TRACH TO MECHANICAL VENT;SETTING ORDERED AC 16 TV 550 FIO2 40% PEEP 5, BREATHING EVEN AND UNLABORED,O2 AT 100%. SB TO SR ON MONITOR, NO SIGNS OF PAIN OR DISCOMFORT, CHESTER MIDLINE WITH NS AT 100 ML/HR INFUSING WELL, SITE CLEAR. JEVITY 1.2 INFUSING AT 65 ML/HR. PRUITT CATH IN PLACE. PT WITH BUE CONTRACTIONS. PM CARE DONE.TURNED AND REPOSITIONED Q 2 HOURS. ALL NEEDS MET. SAFETY MEASURES IN PLACE. BED LOW LOCKED, WILL ENDORSE TO NEXT SHIFT FOR JEAN.
--- NOTE | 2022-07-24 19:15 | NUR ---
RN OPENING NOTES RECEIVED PATIENT ON BED, OBTUNDED. PT. ON TRACH, WITH VENT SETTINGS AC-16, TV- 550, FIO2-40%, PEEP- 5, SATING AT 96%. AFEBRILE, NO S/S OF DISTRESS NOTED. WITH CHESTER MID LINE, PATENT, INTACT, FLUSHED WITH NS. NO S/S OF INFILTRATION NOTED. WITH IVF OF NS @ 100 ML/HR. GTUBE PATENT AND INTACT, VERIFIED PLACEMENT BY AUSCULTATION, FLUSHED WITH WATER, WITH TUBE FEEDING JEVITY 1.2 @ 65 ML/HR. PRUITT CATHETER PATENT INTACT DRAINING WITH CLEAR YELLOW URINE VIA GRAVITY. REPOSITION PATIENT EVERY 2 HRS. ALL SAFETY PRECAUTION PROVIDED, BED IN LOWEST POSITION, LOCKED. BED ALARM ARMED. CALL LIGHT WITH IN REACH. CONTINUE TO MONITOR.
[2022-07-24 20:00] VITALS: BP 119/71
[2022-07-25] VITALS: BP 104/61
[2022-07-25] MEDS: VANCOMYCIN 0.75 GM in IV D5W 250 ML IV SCH ×3 (00:24→16:12)
[2022-07-25] MEDS: IPRATROPIUM NEB FS 0.5 MG/2.5 ML AMPUL.NEB NEB SCH ×4 (01:53→19:30)
[2022-07-25] MEDS: ALBUTEROL FS 2.5 MG/3 ML VIAL.NEB NEB SCH ×4 (01:53→19:30)
[2022-07-25] MEDS: IV NS 0.9% 1,000 ML IV PRN ×2 (03:46→16:45)
[2022-07-25 04:00] VITALS: BP 105/66
[2022-07-25] MEDS: TIZANIDINE HCL 4 MG TABLET GT SCH ×3 (04:43→21:20)
[2022-07-25] MEDS: METOCLOPRAMIDE HCL 10 MG/2 ML VIAL IV SCH ×4 (04:43→21:20)
[2022-07-25] MEDS: CEFEPIME 2 GM in IV D5W 100 ML IV SCH ×3 (04:44→21:22)
--- NOTE | 2022-07-25 06:46 | NUR ---
RN NOTES PATIENT SLEEPING ON BED EASY TO AROUSED. REMAIN AFEBRILE, NO S/S OF DISTRESS NOTED. WITH IVF OF NS @ 100 ML/HR. GTUBE PATENT AND INTACT, VERIFIED PLACEMENT BY AUSCULTATION, WITH TUBE FEEDING JEVITY 1.2 @ 65 ML/HR. HEAD OF BED KEPT ELEVATED. PRUITT CATHETER PATENT INTACT DRAINING WITH CLEAR YELLOW URINE VIA GRAVITY. REPOSITION PATIENT EVERY 2 HRS. ALL DUE MEDS GIVEN. ALL SAFETY PRECAUTION PROVIDED, BED IN LOWEST POSITION, LOCKED. BED ALARM ARMED. CALL LIGHT WITH IN REACH. REPORT GIVEN TO MORNING SHIFT NURSE FOR CONTINUITY OF CARE.
--- NOTE | 2022-07-25 07:33 | NUR ---
EMAIL PRODUCTION SPECIALIST OPENING NOTES: RECEIVED PATIENT IN BED, AWAKE, RESPONSIVE TO VOICE AND TACTILE STIMULI. PATIENT IS OBTUNDED. ON MECHANICAL VENT WITH PORTEX # 7, VENT SETTING FOLLOWS: AC 16, TV 550, FI02 405, PEEP 5. NO RESPIRATORY DISTRESS NOTED AT THIS TIME WITH OXYGEN SATURATION OF 97%. ON SB ON TELE MONITOR WITH HR 55. ON IV INFUSION OF NS @ 100 ML/HR VIA RIGHT UPPER ARM MIDLINE, NO S/S INFILTRATION NOTED. G-TUBE IN PLACE, INTACT, NO RESIDUAL NOTED WITH JEVITY FEEDING @ 65 ML/HR. PRUITT CATHETER IN PLACE, DRAINING WITH YELLOW COLORED URINE, NO HEMATURIA AND NO SEDIMENTATION NOTED. HOB KEPT ELEVATED. BED LOCKED AND IN LOWEST POSITION. CALL LIGHT WITHIN REACH. ALL SAFETY MEASURES IN PLACE. WILL CONTINUE TO MONITOR PATIENT THROUGHOUT SHIFT.
[2022-07-25 07:41] LABS: CALCIUM, SERUM 8.3 mg/dL (8.5-10.1); CREATININE 0.5 mg/dL (0.6-1.3); POTASSIUM 4.1 mmol/L (3.5-5.1)
[2022-07-25 08:00] VITALS: BP 103/70
--- NOTE | 2022-07-25 08:04 | NUR ---
SPOKE WITH CHOLO AT THE PHARMACY AND WAS INFORMED TO GIVE VANCO, LAST TROUGH LEVEL WAS 18 ON 07/23/22
--- NOTE | 2022-07-25 08:04 | NUR ---
ERROR ON CHARTING SPOKE WITH CHOLO AT THE PHARMACY AND WAS INFORMED TO GIVE VANCO, LAST TROUGH LEVEL WAS 18 ON 07/23/22
[2022-07-25] MEDS: DOXAZOSIN MESYLATE (1 MG) 1 MG TABLET GT SCH (09:00)
[2022-07-25] MEDS: DOCUSATE SODIUM LIQ 100 MG/10 ML UDC GT SCH ×2 (09:24→16:13)
[2022-07-25] MEDS: PANTOPRAZOLE 40 MG/PACK PACK GT SCH ×2 (09:25→21:20)
[2022-07-25] MEDS: FERROUS SULFATE UDC 300 MG/5 ML UDC GT SCH (09:25)
[2022-07-25] MEDS: MULTIVIT W/MINERALS 1 TAB TABLET PO SCH (09:25)
[2022-07-25] MEDS: LEVETIRACETAM SOL (5 ML) 100 MG/ML UDC GT SCH ×2 (09:25→21:20)
[2022-07-25] MEDS: SENNOSIDES 8.6 MG TABLET GT SCH ×2 (09:25→16:13)
[2022-07-25] MEDS: ASCORBIC ACID 500 MG TABLET GT SCH (09:26)
[2022-07-25] MEDS: ENOXAPARIN SODIUM 40 MG/0.4 ML DISP.SYRIN SQ SCH (09:28)
[2022-07-25 12:00] VITALS: BP 122/77
[2022-07-25] MEDS: JEVITY 1.2 CAL 1,000 ML BOTTLE GT PRN (12:30)
[2022-07-25 16:00] VITALS: BP 124/74
--- NOTE | 2022-07-25 18:43 | NUR ---
DIRECTOR SOCIAL CLOSING NOTES: PATIENT IN BED, AWAKE AND REACTS TO VERBAL AND TACTILE STIMULI. PATIENT IS OBTUNDED AND REMAINED ON MECHANICAL VENT WITH SETTINGS ORDERED. PATIENT REMAINS STABLE THE ENTIRE SHIFT. BREATHING EVEN AND UNLABORED. HOB KEPT ELEVATED. WILL ENDORSE TO NEXT SHIFT NURSE FOR CONTINUITY OF CARE.
[2022-07-25 20:00] VITALS: BP 112/69
[2022-07-26] VITALS: BP 91/55
[2022-07-26] MEDS: VANCOMYCIN 0.75 GM in IV D5W 250 ML IV SCH ×3 (00:51→16:20)
[2022-07-26] MEDS: ALBUTEROL FS 2.5 MG/3 ML VIAL.NEB NEB SCH ×4 (01:15→20:09)
[2022-07-26] MEDS: IPRATROPIUM NEB FS 0.5 MG/2.5 ML AMPUL.NEB NEB SCH ×4 (01:15→20:09)
[2022-07-26 04:00] VITALS: BP_SYST 105; BP_SYST 116; BP_DIAS 60; BP_DIAS 76
[2022-07-26] MEDS: METOCLOPRAMIDE HCL 10 MG/2 ML VIAL IV SCH ×4 (04:50→21:04)
[2022-07-26] MEDS: TIZANIDINE HCL 4 MG TABLET GT SCH ×3 (04:50→21:02)
[2022-07-26] MEDS: CEFEPIME 2 GM in IV D5W 100 ML IV SCH ×3 (04:51→21:02)
[2022-07-26] MEDS: JEVITY 1.2 CAL 1,000 ML BOTTLE GT PRN (05:42)
--- NOTE | 2022-07-26 06:29 | NUR ---
END OF SHIFT, PATIENT IN BED, OBTUNDED CONTINUE ON MECHANICAL VENTILATOR, TOLERATED SETTINGS WELL, NPO SOB/ACUTE DISTRESS, VITAL SINGS STABLE, CONTINUE ON IV ATB AND IVF ORDERED, OTHERWISE NO SIGNIFICANT CHANGE IN CONDITION DURING THE NIGHT, HOB KEPT ELEVATED, WILL ENDORSE CONTINUITY OF CARE TO ONCOMING NURSE.
--- NOTE | 2022-07-26 07:32 | NUR ---
GREASE MAKER HEAD OPENING NOTES: RECEIVED PATIENT IN BED, AWAKE, RESPONSIVE TO VOICE AND TOUCH, OBTUNDED. ON MECHANICAL VENT WITH PORTEX # 7, VENT SETTING FOLLOWS: AC 16, TV 550, FI02 405, PEEP 5. NO SOB NOTED WITH OXYGEN SATURATION OF 100%. ON SR WITH HR OF 63 ON TELE MONITOR. IV ACCESS ON LEFT UPPER MIDLINE WITH IV INFUSION OF NS @ 100 ML/HR, NO S/S INFILTRATION NOTED. G-TUBE IN PLACE, INTACT, NO RESIDUAL NOTED WITH JEVITY FEEDING @ 65 ML/HR. PRUITT CATHETER IN PLACE, DRAINING WITH YELLOW COLORED URINE, NO HEMATURIA AND NO SEDIMENTATION NOTED. ALL SAFETY MEASURES IN PLACE. HOB KEPT ELEVATED. BED LOCKED AND IN LOWEST POSITION. CALL LIGHT WITHIN REACH. WILL CONTINUE TO MONITOR PATIENT THROUGHOUT
[2022-07-26 08:00] VITALS: BP 104/64
[2022-07-26] MEDS: PANTOPRAZOLE 40 MG/PACK PACK GT SCH ×2 (08:38→21:02)
[2022-07-26] MEDS: SENNOSIDES 8.6 MG TABLET GT SCH ×3 (08:38→16:21)
[2022-07-26] MEDS: ENOXAPARIN SODIUM 40 MG/0.4 ML DISP.SYRIN SQ SCH (08:38)
[2022-07-26] MEDS: LEVETIRACETAM SOL (5 ML) 100 MG/ML UDC GT SCH ×2 (08:39→21:02)
[2022-07-26] MEDS: DOCUSATE SODIUM LIQ 100 MG/10 ML UDC GT SCH ×3 (08:39→16:21)
[2022-07-26] MEDS: ASCORBIC ACID 500 MG TABLET GT SCH (08:39)
[2022-07-26] MEDS: MULTIVIT W/MINERALS 1 TAB TABLET PO SCH (08:39)
[2022-07-26] MEDS: FERROUS SULFATE UDC 300 MG/5 ML UDC GT SCH (08:39)
[2022-07-26] MEDS: DOXAZOSIN MESYLATE (1 MG) 1 MG TABLET GT SCH (08:39)
--- NOTE | 2022-07-26 08:42 | NUR ---
SPOKE WITH BRAIN AT THE PHARMACY AND WAS TOLD THAT IT'S OK TO GIVEN VANO
[2022-07-26] MEDS: IV NS 0.9% 1,000 ML IV PRN (09:30)
[2022-07-26 10:15] LABS: BASOPHILS % (AUTO) 0.5 % (0.0-2.0); EOSINOPHILS % (AUTO) 2.5 % (0.0-6.0); HEMATOCRIT 36 % (39-51); HEMOGLOBIN 11.3 g/dL (13.5-17.5); LYMPHOCYTES # (AUTO) 0.9 K/uL (0.8-4.8); LYMPHOCYTES % (AUTO) 17.8 % (20.0-44.0); MEAN CORPUSCULAR HGB CONC 32 g/dl (31.0-36.0); MEAN CORPUSCULAR VOLUME 90 fL (80-96); MONOCYTES # (AUTO) 0.4 K/uL (0.1-1.30); NEUTROPHILS # (AUTO) 3.8 K/uL (1.8-8.9); NEUTROPHILS % (AUTO) 72.2 % (43.0-81.0); PLATELET COUNT (AUTO) 126 K/uL (150-450); RED BLOOD CELL COUNT(AUTO) 3.92 MIL/uL (4.5-6.0); WHITE BLOOD COUNT (AUTO) 5.3 K/uL (4.3-11.0)
--- NOTE | 2022-07-26 10:31 | NUR ---
DR HICKEY NOTIFIED OF RASHES ON PATIENT'S SCALP AND CHEST AREA WITH AN ORDER FOR CLOTRIMAZOLE, ORDER NOTED AND CARRIED OUT.
[2022-07-26 10:40] LABS: CALCIUM, SERUM 8.3 mg/dL (8.5-10.1); CREATININE 0.6 mg/dL (0.6-1.3); PHOSPHORUS 3.9 mg/dL (2.5-4.9)
[2022-07-26 12:00] VITALS: BP 119/73
--- NOTE | 2022-07-26 13:09 | NUR ---
DR HICKEY INFORMED OF LOOSE, DARK GREEN WATERY STOOL X 2 SINCE THIS MORNING WITH AN ORDER FOR STOOL FOR C-DIFF. ORDER NOTED AND CARRIED OUT.
--- NOTE | 2022-07-26 14:00 | NUR ---
PER DR. LORA, G-TUBE FEEDING WAS HELD FOR NOW.
[2022-07-26 16:00] VITALS: BP 109/60
[2022-07-26] MEDS: ACETAMINOPHEN 325 MG TABLET MC PRN (16:20)
[2022-07-26] MEDS: CLOTRIMAZOLE 1% 15 GM TUBE TP SCH (16:20)
--- NOTE | 2022-07-26 17:49 | NUR ---
DR LORA CAME BY AND ORDERED G-TUBE TO GRAVITY, ORDER NOTED AND CARRIED OUT.
--- NOTE | 2022-07-26 18:38 | NUR ---
ELECTRO MECHANIC CLOSING NOTES: PATIENT IN BED, AWAKE AND RESPONDS TO VOICE AND TACTILE STIMULI. PATIENT IN NO RESPIRATORY DISTRESS NOTED. ON MECHANICAL VENT ORDERED. NO SOB WITH OXYGEN SATURATION OF 100%. PRUITT CATHETER IN PLACE, EMPTIED 1750 OF YELLOW COLORED URINE. G-TUBE STILL ON HOLD AND IS SET TO GRAVITY ORDERED. PRUITT CATHETER ON RIGHT UPPER ARM MIDLINE, INTACT, INFUSING WITH NS @ 100 ML/HR, NO S/S INFILTRATION NOTED.. BED LOCKED AND IN LOWEST POSITION. ALL NEEDS MET AND ANTICIPATED. NO FURTHER LOOSE STOOL NOTED AFTER HIS LAST 2 EPISODES EARLIER. WILL ENDORSE TO NEXT SHIFT NURSE FOR CONTINUITY OF CARE.
--- NOTE | 2022-07-26 19:40 | NUR ---
RECEIVED PT IN BED, ON MECHANICAL VENTILATOR, NO SOB/ACUTE DISTRESS NOTED WITH 1005 O2 SAT LEVEL, NSR IN TELE MONITOR, CHESTER MIDLINE IN PLACE CONTINUE ON IVF ORDERED, NO INFILTRATION OR ABNORMALITY NOTED AT SITE, GT CONFECTED TO GRAVITY, ALL SAFETY PRECAUTION MAINTAINED, HOB ELEVATED AT ALL TIME, BD S/R UP X2, WILL CONTINUE TO MONITOR CLOSELY.
[2022-07-26 20:00] VITALS: BP 122/73
[2022-07-27] VITALS (7 sets, daily range): BP systolic 110–161; BP diastolic 68–90
[2022-07-27] MEDS: VANCOMYCIN 1 GM in IV D5W 250ml IV SCH ×3 (00:18→17:02)
[2022-07-27] MEDS: IV NS 0.9% 1,000 ML IV PRN ×2 (01:51→14:13)
[2022-07-27] MEDS: ALBUTEROL FS 2.5 MG/3 ML VIAL.NEB NEB SCH ×4 (02:10→20:13)
[2022-07-27] MEDS: IPRATROPIUM NEB FS 0.5 MG/2.5 ML AMPUL.NEB NEB SCH ×4 (02:10→20:13)
[2022-07-27] MEDS: TIZANIDINE HCL 4 MG TABLET GT SCH ×3 (05:04→21:00)
[2022-07-27] MEDS: METOCLOPRAMIDE HCL 10 MG/2 ML VIAL IV SCH ×4 (05:05→22:29)
[2022-07-27] MEDS: CEFEPIME 2 GM in IV D5W 100 ML IV SCH ×3 (05:05→22:29)
--- NOTE | 2022-07-27 06:39 | NUR ---
END OF SHIFT, PATIENT IN BED, ON MECHANICAL VENTILATOR, NO SOB/ACUTE DISTRESS NOTED WITH 100% O2 SAT LEVEL THROUGHOUT THE NIGHT, REMAINED STABLE, GTF ON HOLD, GT ATTACHED TO GRAVITY, NSR-SB IN TELE MONITOR, CHESTER MIDLINE IN PLACE CONTINUE ON IVF ORDERED, NO INFILTRATION OR ABNORMALITY NOTED AT SITE, OTHERWISE NO SIGNIFICANT CHANGE IN CONDITION, ALL SAFETY PRECAUTION MAINTAINED, HOB ELEVATED AT ALL TIME, BED S/R UP X2, WILL ENDORSE CONTINUITY OF CARE TO ONCOMING NURSE.
--- NOTE | 2022-07-27 07:10 | NUR ---
RN OPENING NOTE RECEIVED PT IN BED, ON MECHANICAL VENTILATOR, NO SOB/ACUTE DISTRESS NOTED WITH 1005 O2 SAT LEVEL, NSR IN TELE MONITOR, CHESTER MIDLINE IN PLACE CONTINUE ON IVF ORDERED, NO INFILTRATION OR ABNORMALITY NOTED AT SITE, GT CONFECTED TO GRAVITY, ALL SAFETY PRECAUTION MAINTAINED, HOB ELEVATED AT ALL TIME, BD S/R UP X2,
--- NOTE | 2022-07-27 07:15 | NUR ---
RN NOTE ATTEMPTED TO CONTACT FAMILY REGARDING CT CONSENT NO ANSWER.
[2022-07-27 07:18] LABS: BASOPHILS % (AUTO) 0.6 % (0.0-2.0); EOSINOPHILS % (AUTO) 3.2 % (0.0-6.0); HEMATOCRIT 29 % (39-51); HEMOGLOBIN 9.6 g/dL (13.5-17.5); LYMPHOCYTES # (AUTO) 1.1 K/uL (0.8-4.8); LYMPHOCYTES % (AUTO) 21.9 % (20.0-44.0); MEAN CORPUSCULAR HGB CONC 33 g/dl (31.0-36.0); MEAN CORPUSCULAR VOLUME 89 fL (80-96); MONOCYTES # (AUTO) 0.6 K/uL (0.1-1.30); MONOCYTES % (AUTO) 10.7 % (2.0-12.0); NEUTROPHILS # (AUTO) 3.3 K/uL (1.8-8.9); NEUTROPHILS % (AUTO) 63.6 % (43.0-81.0); PLATELET COUNT (AUTO) 124 K/uL (150-450); RED BLOOD CELL COUNT(AUTO) 3.27 MIL/uL (4.5-6.0); WHITE BLOOD COUNT (AUTO) 5.3 K/uL (4.3-11.0)
--- NOTE | 2022-07-27 07:22 | NUR ---
RN NOTE ATTEMPTED TO CONTACT FAMILY REGARDING CT CONSENT -NO ANSWER
[2022-07-27 08:08] LABS: CALCIUM, SERUM 8.1 mg/dL (8.5-10.1); CREATININE 0.6 mg/dL (0.6-1.3); POTASSIUM 3.7 mmol/L (3.5-5.1)
--- NOTE | 2022-07-27 08:18 | NUR ---
WOUND CARE CONSULT: RECEIVED CONSULT FOR RASH ON FACE AND CHEST. PT PRESENTS WITH REDNESS TO FACE AND CHEST, UNKNOWN ETIOLOGY. DEFER TO PMD. Addendum: 07/27/22 at 0833 by CLEMENTE DENNISON WNDNU DISCUSSED SKIN PROTECTION WITH NURSING STAFF. FIRST STEP LOW AIRLOSS MATTRESS ORDERED.
[2022-07-27] MEDS: ASCORBIC ACID 500 MG TABLET GT SCH (08:36)
[2022-07-27] MEDS: LEVETIRACETAM SOL (5 ML) 100 MG/ML UDC GT SCH (08:36)
[2022-07-27] MEDS: FERROUS SULFATE UDC 300 MG/5 ML UDC GT SCH (08:36)
[2022-07-27] MEDS: MULTIVIT W/MINERALS 1 TAB TABLET PO SCH (08:37)
[2022-07-27] MEDS: SENNOSIDES 8.6 MG TABLET GT SCH ×2 (08:37→17:02)
[2022-07-27] MEDS: PANTOPRAZOLE 40 MG/PACK PACK GT SCH ×2 (08:37→21:00)
[2022-07-27] MEDS: DOXAZOSIN MESYLATE (1 MG) 1 MG TABLET GT SCH (08:37)
[2022-07-27] MEDS: ENOXAPARIN SODIUM 40 MG/0.4 ML DISP.SYRIN SQ SCH (08:38)
[2022-07-27] MEDS: CLOTRIMAZOLE 1% 15 GM TUBE TP SCH ×2 (08:41→17:03)
[2022-07-27] MEDS: DOCUSATE SODIUM LIQ 100 MG/10 ML UDC GT SCH ×2 (08:41→17:02)
--- NOTE | 2022-07-27 09:32 | NUR ---
RN NOTE PER PROVIDER DR RUPERTO PEPPER TO INCLUDE PELVIS ON CT
[2022-07-27] MEDS ORDERED: IOHEXOL-300 100 ML VIAL IV ONE (09:42)
[2022-07-27] MEDS ORDERED: CT SWABBABLE VALVE TRANS SET 1 EA INFUS.SET MC ONE (09:42)
[2022-07-27] MEDS ORDERED: IV NS 0.9% 250 ML IV ONE (09:42)
--- NOTE | 2022-07-27 14:44 | NUR ---
RN NOTE PER DR LORA START PT ON GOLYTELY, TAP WATER ENEMA AND DISIMPACT PT. ORDERS PLACED AND FOLLOWED. PER XIMENA MORA OKAY TO PLACE FEXISEAL.
[2022-07-27] MEDS ORDERED: PEG 3350/NA SULF,BICARB,CL/KCL 4,000 ML BOTTLE GT ONE (15:00)
--- NOTE | 2022-07-27 18:38 | NUR ---
RN CLOSING NOTE PATIENT IN BED, ON MECHANICAL VENTILATOR, NO SOB/ACUTE DISTRESS NOTED WITH 100% O2 SAT LEVEL THROUGHOUT THE NIGHT, REMAINED STABLE, GTF ON HOLD, GT ATTACHED TO GRAVITY, NSR-SB IN TELE MONITOR, CHESTER MIDLINE IN PLACE CONTINUE ON IVF ORDERED, NO INFILTRATION OR ABNORMALITY NOTED AT SITE, OTHERWISE NO SIGNIFICANT CHANGE IN CONDITION, ALL SAFETY PRECAUTION MAINTAINED, HOB ELEVATED AT ALL TIME, BED S/R UP X2, WILL ENDORSE CONTINUITY OF CARE TO ONCOMING NURSE.
--- NOTE | 2022-07-27 22:19 | NUR ---
RN NOTE INFORMED LABORATORY MANAGER MURRAY ROSADO LOCAL AREA NETWORK ADMINISTRATOR THAT PATIENT HAS ORDER FOR NPO, GTUBE FEEDING HELD AND [facility] ORDER FOR GTUBE TO GRAVITY,. INFORMED SCHEDULED MED KEPPRA IS VIA GTUBE. RECEIVED OR TO CHANGE KEPPRA TO IV. ORDERS NOTED AND CARRIED OUT.
[2022-07-27] MEDS ORDERED: LEVETIRACETAM SOL (5 ML) 100 MG/ML UDC ONE (23:12)
[2022-07-27] MEDS ORDERED: LEVETIRACETAM (500MG) 500 MG/5 ML VIAL IV ONE (23:19)
[2022-07-27] MEDS: LEVETIRACETAM (500MG) 1,000 MG in IV NS 0.9% 100 ML IV SCH (23:25)
[2022-07-28] VITALS: BP 147/83
[2022-07-28] MEDS: VANCOMYCIN 1 GM in IV D5W 250ml IV SCH ×4 (00:16→23:17)
[2022-07-28] MEDS: IPRATROPIUM NEB FS 0.5 MG/2.5 ML AMPUL.NEB NEB SCH ×4 (01:42→20:02)
[2022-07-28] MEDS: ALBUTEROL FS 2.5 MG/3 ML VIAL.NEB NEB SCH ×4 (01:42→20:02)
[2022-07-28] MEDS: IV NS 0.9% 1,000 ML IV PRN ×2 (03:19→16:09)
[2022-07-28 04:00] VITALS: BP 97/63
[2022-07-28] MEDS: CEFEPIME 2 GM in IV D5W 100 ML IV SCH ×3 (04:54→20:28)
[2022-07-28] MEDS: METOCLOPRAMIDE HCL 10 MG/2 ML VIAL IV SCH ×4 (04:54→21:44)
[2022-07-28] MEDS: TIZANIDINE HCL 4 MG TABLET GT SCH ×3 (04:55→20:28)
--- NOTE | 2022-07-28 06:47 | NUR ---
RN CLOSING NOTE PATIENT RESTING IN BED. OBTUNDED. ON MECHANICAL VENT. NO CHANGES IN VENT SETTINGS. NO RESP DISTRESS. NO S/S PAIN NOTED. SB/SR ON THE MONITOR. HR LOW 46. FLEXISEAL OUTPUT 1500 BROWN LIQUID. PRUITT CATHETER 1775ML, CLEAR YELLOW. GTUBE TO GRAVITY, OUTPUT 100CC. NS @100.
[2022-07-28 06:57] LABS: BASOPHILS % (AUTO) 0.5 % (0.0-2.0); HEMATOCRIT 29 % (39-51); HEMOGLOBIN 9.6 g/dL (13.5-17.5); LYMPHOCYTES # (AUTO) 0.9 K/uL (0.8-4.8); LYMPHOCYTES % (AUTO) 23.2 % (20.0-44.0); MEAN CORPUSCULAR HGB CONC 33 g/dl (31.0-36.0); MEAN CORPUSCULAR VOLUME 88 fL (80-96); MONOCYTES # (AUTO) 0.3 K/uL (0.1-1.30); NEUTROPHILS # (AUTO) 2.4 K/uL (1.8-8.9); NEUTROPHILS % (AUTO) 64.3 % (43.0-81.0); PLATELET COUNT (AUTO) 130 K/uL (150-450); WHITE BLOOD COUNT (AUTO) 3.7 K/uL (4.3-11.0)
--- NOTE | 2022-07-28 07:11 | NUR ---
RN OPENING NOTE RECEIVED PT IN BED, ON MECHANICAL VENTILATOR, NO SOB/ACUTE DISTRESS NOTED, NSR IN TELE MONITOR, CHESTER MIDLINE IN PLACE CONTINUE ON IVF ORDERED, NO INFILTRATION OR ABNORMALITY NOTED AT SITE, GT CONFECTED TO GRAVITY, ALL SAFETY PRECAUTION MAINTAINED, HOB ELEVATED AT ALL TIME, BD S/R UP X2,
[2022-07-28 08:00] VITALS: BP 133/87
[2022-07-28 08:03] LABS: CALCIUM, SERUM 8.2 mg/dL (8.5-10.1); CREATININE 0.6 mg/dL (0.6-1.3); POTASSIUM 3.1 mmol/L (3.5-5.1)
[2022-07-28] MEDS: FERROUS SULFATE UDC 300 MG/5 ML UDC GT SCH (08:20)
[2022-07-28] MEDS: DOXAZOSIN MESYLATE (1 MG) 1 MG TABLET GT SCH (08:20)
[2022-07-28] MEDS: MULTIVIT W/MINERALS 1 TAB TABLET PO SCH (08:20)
[2022-07-28] MEDS: ASCORBIC ACID 500 MG TABLET GT SCH (08:20)
[2022-07-28] MEDS: SENNOSIDES 8.6 MG TABLET GT SCH ×2 (08:20→16:07)
[2022-07-28] MEDS: PANTOPRAZOLE 40 MG/PACK PACK GT SCH ×2 (08:20→20:28)
[2022-07-28] MEDS: DOCUSATE SODIUM LIQ 100 MG/10 ML UDC GT SCH ×2 (08:20→16:07)
[2022-07-28] MEDS: CLOTRIMAZOLE 1% 15 GM TUBE TP SCH ×2 (08:21→16:07)
[2022-07-28] MEDS: ENOXAPARIN SODIUM 40 MG/0.4 ML DISP.SYRIN SQ SCH (08:21)
[2022-07-28] MEDS: LEVETIRACETAM (500MG) 1,000 MG in IV NS 0.9% 100 ML IV SCH ×2 (09:30→21:24)
[2022-07-28] MEDS: POTASSIUM CL. PREMIX PERIPHER. 50 ML IV SCH ×4 (10:47→14:58)
[2022-07-28 12:00] VITALS: BP 121/79
--- NOTE | 2022-07-28 14:30 | NUR ---
RN NOTE PER DR. GENO PEPPER TO START TUBE FEEDING ON PATIENT
[2022-07-28 16:00] VITALS: BP 121/80
[2022-07-28] MEDS: JEVITY 1.2 CAL 1,000 ML BOTTLE GT PRN (17:43)
--- NOTE | 2022-07-28 18:16 | NUR ---
RN NOTE CURRENT TUBE FEEDING NOTED TO NOT HAVE RESIDUAL INCREASED RATE TO 30MLS/HR
--- NOTE | 2022-07-28 18:41 | NUR ---
RN CLOSING NOTE PATIENT RESTING IN BED. OBTUNDED. ON MECHANICAL VENT. NO CHANGES IN VENT SETTINGS. NO RESP DISTRESS. NO S/S PAIN NOTED. SB/SR ON THE MONITOR FLEXISEAL OUTPUT 500 BROWN LIQUID. PRUITT CATHETER DRAINING, CLEAR YELLOW. GTUBE RUNNING JEVITY WITH THE GOAL OF 65MLS/HR CURRENTLY RUNNING 30MLS/HR. SAFETY MEASURE IN PLACE WILL ENDORSE TO TRUCK DRIVER INSTRUCTOR FOR JEAN.
[2022-07-28 20:00] VITALS: BP 128/80
--- NOTE | 2022-07-28 20:00 | NUR ---
RN OPENING NOTE RECEIVED PT IN BED, ON MECHANICAL VENTILATOR, NO SOB/ACUTE DISTRESS NOTED, V/S STABLE AFEBRILE NSR IN TELE MONITOR,HR 46 NINA , CHESTER MIDLINE IN PLACE CONTINUE ON IVF NS AT 100CC/HR INFUSING WELL NO INFILTRATION NOTED GT FEEDING JEVITY AT 50CC/HR GOAL IS 65 ON PROGRESS NO RESIDUAL NOTED ALL DUE MEDS GIVEN NO ASE NOTED. F/C INTACT AND PATENT DRAINING WITH YELLOWISH URINE OUTPUT, FLEXCESEAL INTACT DRAINING . ALL SAFETY PRECAUTION MAINTAINED, HOB ELEVATED AT ALL TIME, BD S/R UP X2,
[2022-07-29] VITALS: BP 109/66
[2022-07-29] MEDS: ALBUTEROL FS 2.5 MG/3 ML VIAL.NEB NEB SCH ×4 (01:16→19:59)
[2022-07-29] MEDS: IPRATROPIUM NEB FS 0.5 MG/2.5 ML AMPUL.NEB NEB SCH ×4 (01:16→19:59)
[2022-07-29] MEDS: IV NS 0.9% 1,000 ML IV PRN ×2 (03:27→14:04)
[2022-07-29] MEDS: METOCLOPRAMIDE HCL 10 MG/2 ML VIAL IV SCH ×4 (03:39→21:48)
[2022-07-29 04:00] VITALS: BP 109/67
[2022-07-29] MEDS: TIZANIDINE HCL 4 MG TABLET GT SCH ×3 (04:27→20:26)
[2022-07-29] MEDS: CEFEPIME 2 GM in IV D5W 100 ML IV SCH ×3 (04:27→20:16)
--- NOTE | 2022-07-29 06:20 | NUR ---
RN CLOSING NOTE PATIENT REMAIN IN BED. OBTUNDED. ON MECHANICAL VENT. NO CHANGES IN VENT SETTINGS. NO RESP DISTRESS. NO S/S PAIN NOTED. SB/SR ON THE MONITOR. HR LOW 46. FLEXISEAL OUTPUT 300CC. PRUITT CATHETER 2200ML, CLEAR YELLOW. GTUBE JEVITY AT 65CC/HR ON GOAL IVF . NS @100CC/HR TOLERATING WELL ,WILL ENDORSE TO RN DAY SHIFT FOR CONTINUITY OF CARE.
--- NOTE | 2022-07-29 07:41 | NUR ---
RN NOTE RECEIVED PT IN BED, OBTUNDED. [facility] WITH SETTINGS TOLERATING WELL. IV ACCESS ON CHESTER MIDLINE WITH IVF NS RUNNING @ 100/HR. GT IN PLACE WITH JEVITY 1.2 @ 65/HR. ASPIRATION PREC MAINTAINED. PRUITT CATH DRAINING WELL. WILL CONTINUE TO MONITOR. SAFETY MAINTAINED.
[2022-07-29 08:00] VITALS: BP 100/61
[2022-07-29] MEDS: MULTIVIT W/MINERALS 1 TAB TABLET PO SCH (08:29)
[2022-07-29] MEDS: SENNOSIDES 8.6 MG TABLET GT SCH ×2 (08:29→16:49)
[2022-07-29] MEDS: ASCORBIC ACID 500 MG TABLET GT SCH (08:29)
[2022-07-29] MEDS: LEVETIRACETAM SOL (5 ML) 100 MG/ML UDC PO SCH ×2 (08:30→20:25)
[2022-07-29] MEDS: DOCUSATE SODIUM LIQ 100 MG/10 ML UDC GT SCH ×2 (08:30→16:49)
[2022-07-29] MEDS: DOXAZOSIN MESYLATE (1 MG) 1 MG TABLET GT SCH (08:30)
[2022-07-29] MEDS: FERROUS SULFATE UDC 300 MG/5 ML UDC GT SCH (08:31)
[2022-07-29] MEDS: PANTOPRAZOLE 40 MG/PACK PACK GT SCH ×2 (08:31→20:25)
[2022-07-29] MEDS: ENOXAPARIN SODIUM 40 MG/0.4 ML DISP.SYRIN SQ SCH (08:32)
[2022-07-29] MEDS: VANCOMYCIN 1 GM in IV D5W 250ml IV SCH ×3 (08:35→23:09)
[2022-07-29] MEDS: CLOTRIMAZOLE 1% 15 GM TUBE TP SCH ×2 (10:31→16:49)
[2022-07-29 12:00] VITALS: BP 124/80
[2022-07-29 16:00] VITALS: BP 113/73
--- NOTE | 2022-07-29 18:35 | NUR ---
RN NOTE PT RESTING IN BED, OBTUNDED. ON [facility] VENT WITH SETTINGS TOLERATING WELL. IV ACCESS ON CHESTER MIDLINE WITH IVF NS RUNNING @ 100/HR. GT IN PLACE WITH JEVITY 1.2 @ 65/HR. ASPIRATION PREC MAINTAINED. PRUITT CATH DRAINING WELL. DUE MEDICATIONS GIVEN, AM/PM CARE DONE. WILL CONTINUE TO MONITOR. SAFETY MAINTAINED.
[2022-07-29 20:00] VITALS: BP 115/75
--- NOTE | 2022-07-29 20:00 | NUR ---
SYSTEMS TECHNICIAN OPENING NOTE RECEIVED PT IN BED, ON MECHANICAL VENTILATOR, NO SOB/ACUTE DISTRESS NOTED, V/S STABLE AFEBRILE NSR IN TELE MONITOR,HR 70 SR -NINA , CHESTER MIDLINE IN PLACE CONTINUE ON IVF NS AT 100CC/HR INFUSING WELL NO INFILTRATION NOTED GT FEEDING JEVITY AT 65CC/HR GOAL ON PROGRESS NO RESIDUAL NOTED ALL DUE MEDS GIVEN NO ASE NOTED. F/C INTACT AND PATENT DRAINING WITH YELLOWISH URINE OUTPUT, FLEXCESEAL INTACT DRAINING . ALL SAFETY PRECAUTION MAINTAINED, HOB ELEVATED AT ALL TIME, BD S/R UP X2, WILL CONTINUE TO MONITOR PTS.
[2022-07-29] MEDS: ACETAMINOPHEN 325 MG TABLET MC PRN (20:25)
[2022-07-30] VITALS: BP 100/56
[2022-07-30] MEDS: ALBUTEROL FS 2.5 MG/3 ML VIAL.NEB NEB SCH ×4 (00:41→20:17)
[2022-07-30] MEDS: IPRATROPIUM NEB FS 0.5 MG/2.5 ML AMPUL.NEB NEB SCH ×4 (00:41→20:16)
[2022-07-30] MEDS: IV NS 0.9% 1,000 ML IV PRN ×2 (01:28→12:17)
[2022-07-30] MEDS: JEVITY 1.2 CAL 1,000 ML BOTTLE GT PRN (03:36)
[2022-07-30 04:00] VITALS: BP 126/81
[2022-07-30] MEDS: TIZANIDINE HCL 4 MG TABLET GT SCH ×3 (04:47→20:58)
[2022-07-30] MEDS: METOCLOPRAMIDE HCL 10 MG/2 ML VIAL IV SCH ×4 (04:47→22:13)
[2022-07-30] MEDS: CEFEPIME 2 GM in IV D5W 100 ML IV SCH ×3 (04:52→20:59)
--- NOTE | 2022-07-30 06:13 | NUR ---
SKIN CARE SPECIALIST CLOSING NOTE PATIENT REMAIN IN BED. OBTUNDED. ON MECHANICAL VENT. NO CHANGES IN VENT SETTINGS. NO RESP DISTRESS. NO S/S PAIN NOTED. SB/SR ON THE MONITOR. HR LOW 46. FLEXISEAL OUTPUT 200CC. PRUITT CATHETER 2100ML, CLEAR YELLOW. GTUBE JEVITY AT 65CC/HR TOLERATED .IVF . NS @100CC/HR TOLERATING WELL ,WILL ENDORSE TO RN DAY SHIFT FOR CONTINUITY OF CARE.
--- NOTE | 2022-07-30 07:54 | NUR ---
RN NOTE RECEIVED PT IN BED, OBTUNDED. [facility] WITH SETTINGS TOLERATING WELL. IV ACCESS ON CHESTER MIDLINE WITH IVF NS RUNNING @ 100/HR. GT IN PLACE WITH JEVITY 1.2 @ 65/HR. ASPIRATION PREC MAINTAINED. PRUITT CATH DRAINING WELL. WILL CONTINUE TO MONITOR. SAFETY MAINTAINED.
[2022-07-30 08:00] VITALS: BP 101/60
[2022-07-30 08:24] LABS: CREATININE 0.5 mg/dL (0.6-1.3); POTASSIUM 3.1 mmol/L (3.5-5.1)
[2022-07-30 08:54] LABS: CALCIUM, SERUM 7.9 mg/dL (8.5-10.1)
[2022-07-30] MEDS: DOXAZOSIN MESYLATE (1 MG) 1 MG TABLET GT SCH (09:00)
[2022-07-30] MEDS: VANCOMYCIN 1 GM in IV D5W 250ml IV SCH ×2 (09:49→16:40)
[2022-07-30] MEDS: PANTOPRAZOLE 40 MG/PACK PACK GT SCH ×2 (09:50→20:58)
[2022-07-30] MEDS: FERROUS SULFATE UDC 300 MG/5 ML UDC GT SCH (09:50)
[2022-07-30] MEDS: LEVETIRACETAM SOL (5 ML) 100 MG/ML UDC PO SCH ×2 (09:50→20:58)
[2022-07-30] MEDS: DOCUSATE SODIUM LIQ 100 MG/10 ML UDC GT SCH ×2 (09:50→16:40)
[2022-07-30] MEDS: ASCORBIC ACID 500 MG TABLET GT SCH (09:50)
[2022-07-30] MEDS: SENNOSIDES 8.6 MG TABLET GT SCH ×2 (09:50→16:40)
[2022-07-30] MEDS: MULTIVIT W/MINERALS 1 TAB TABLET PO SCH (09:50)
[2022-07-30] MEDS ORDERED: POTASSIUM CHLORIDE 20 MEQ POWDER PACKET GT ONE (11:30)
[2022-07-30 12:00] VITALS: BP 106/65
[2022-07-30] MEDS: CLOTRIMAZOLE 1% 15 GM TUBE TP SCH ×2 (12:04→16:40)
[2022-07-30 16:00] VITALS: BP 113/65
[2022-07-30] MEDS ORDERED: LACTULOSE 10 G/15 ML UDC (PYXIS) PO PRN (16:30)
--- NOTE | 2022-07-30 18:55 | NUR ---
RN NOTE PT RESTING IN BED, OBTUNDED. [facility] WITH SETTINGS TOLERATING WELL. IV ACCESS ON CHESTER MIDLINE WITH IVF NS RUNNING @ 100/HR. GT IN PLACE WITH JEVITY 1.2 @ 60/HR. ASPIRATION PREC MAINTAINED. PRUITT CATH DRAINING WELL. DUE MEDICATIONS GIVEN, AM/PM CARE DONE. WILL CONTINUE TO MONITOR. SAFETY MAINTAINED.
[2022-07-30 20:00] VITALS: BP 126/77
--- NOTE | 2022-07-30 20:00 | NUR ---
SEWER HEAD OPENING NOTE PATIENT IN BED WITH EYES CLOSED, PT NON-VERBAL, OBTUNDED. PATIENT ON MECHANICAL VENT, TOLERATING SETTINGS WELL, NO S/S OF DISTRESS OR SOB NOTED, BREATHING EVEN AND UNLABORED. PT ON TELE MONITOR READING SINUS NINA, HR: 57. PATIENT ON GT FEEDING JEVITY 1.2 @ 60 ML/HR X 24H. CHESTER MIDLINE INTACT AND INFUSING NS @100 ML/HR. PRUITT CATHETER IN PLACE AND DRAINING YELLOW URINE BY GRAVITY. FLEXI SEAL NOTED. SAFETY MEASURES IN PLACE: CALL LIGHT WITHIN REACH, SIDE RAILS UP X 3, BED LOCKED IN LOWEST POSITION, BED ALARM ON. WILL CONTINUE TO MONITOR PATIENT
[2022-07-31] VITALS: BP 93/56
[2022-07-31] MEDS: JEVITY 1.2 CAL 1,000 ML BOTTLE GT PRN ×2 (00:16→18:21)
[2022-07-31] MEDS: IPRATROPIUM NEB FS 0.5 MG/2.5 ML AMPUL.NEB NEB SCH ×4 (01:56→19:48)
[2022-07-31] MEDS: ALBUTEROL FS 2.5 MG/3 ML VIAL.NEB NEB SCH ×4 (01:56→19:48)
[2022-07-31 04:00] VITALS: BP 129/75
[2022-07-31] MEDS: METOCLOPRAMIDE HCL 10 MG/2 ML VIAL IV SCH ×4 (04:50→22:42)
[2022-07-31] MEDS: CEFEPIME 2 GM in IV D5W 100 ML IV SCH (04:50)
[2022-07-31] MEDS: TIZANIDINE HCL 4 MG TABLET GT SCH ×3 (04:50→20:19)
--- NOTE | 2022-07-31 06:33 | NUR ---
CONVEYOR MAINTENANCE MECHANIC CLOSING NOTE PATIENT IN BED WITH EYES CLOSED, PT NON-VERBAL, OBTUNDED. PATIENT ON MECHANICAL VENT, TOLERATING SETTINGS WELL, NO S/S OF DISTRESS OR SOB NOTED, BREATHING EVEN AND UNLABORED. PT ON TELE MONITOR READING SINUS RHYTHM, HR: 67. PATIENT ON GT FEEDING JEVITY 1.2 @ 60 ML/HR X 24H. CHESTER MIDLINE INTACT AND INFUSING NS @100 ML/HR. PRUITT CATHETER IN PLACE AND DRAINING YELLOW URINE BY GRAVITY, 1500 ML. FLEXI SEAL NOTED WITH 180 ML. NO SIGNIFICANT CHANGES THIS SHIFT, MEDICATIONS GIVEN ORDERED. SAFETY MEASURES IN PLACE: CALL LIGHT WITHIN REACH, SIDE RAILS UP X 3, BED LOCKED IN LOWEST POSITION, BED ALARM ON. WILL ENDORSE TO DAYSHIFT NURSE FOR CONTINUITY OF CARE
[2022-07-31 07:07] LABS: CALCIUM, SERUM 8.3 mg/dL (8.5-10.1); CREATININE 0.6 mg/dL (0.6-1.3); POTASSIUM 3.8 mmol/L (3.5-5.1)
--- NOTE | 2022-07-31 07:56 | NUR ---
RN OPENING NOTE PATIENT RECEIVED IN BED, OBTUNDED, ABLE TO RESPONDS PHYSICAL STIMULI. IN NO ACUTE DISTRESS NOTED. RESPIRATORY EVEN AND UNLABORED WITH VENTILATOR. SKIN IS WARM TO TOUCH, KEEP CLEAN/DRY. TUBE FEEDING RUNNING AT 60ML. INTACT MIDLINE ON RIGHT UPPER ARM. KEPT ELEVATED HOB FOR ENSURE AIRWAY AND ASPIRATION PRECAUTION, ALSO LOWEST POSITION OF THE BED, S/R UP X 2, BED ALARM IS ON AT ALL THE TIMES. ALL SAFETY PRECAUTION APPLIED. CALL LIGHT WITHIN REACH, WILL CONTINUE TO MONITOR.
[2022-07-31 08:00] VITALS: BP 104/67
[2022-07-31] MEDS: MULTIVIT W/MINERALS 1 TAB TABLET PO SCH (08:41)
[2022-07-31] MEDS: ASCORBIC ACID 500 MG TABLET GT SCH (08:41)
[2022-07-31] MEDS: SENNOSIDES 8.6 MG TABLET GT SCH ×2 (08:41→17:25)
[2022-07-31] MEDS: PANTOPRAZOLE 40 MG/PACK PACK GT SCH ×2 (08:41→20:18)
[2022-07-31] MEDS: DOCUSATE SODIUM LIQ 100 MG/10 ML UDC GT SCH ×2 (08:42→17:25)
[2022-07-31] MEDS: DOXAZOSIN MESYLATE (1 MG) 1 MG TABLET GT SCH (08:42)
[2022-07-31] MEDS: FERROUS SULFATE UDC 300 MG/5 ML UDC GT SCH (08:42)
[2022-07-31] MEDS: LEVETIRACETAM SOL (5 ML) 100 MG/ML UDC PO SCH ×2 (08:42→20:19)
[2022-07-31] MEDS: VANCOMYCIN 1 GM in IV D5W 250ml IV SCH ×3 (08:45)
[2022-07-31] MEDS: IV NS 0.9% 1,000 ML IV PRN ×3 (08:49→22:54)
[2022-07-31] MEDS: CLOTRIMAZOLE 1% 15 GM TUBE TP SCH ×2 (08:54→17:26)
[2022-07-31] MEDS ORDERED: PANT40SU2 GT (11:11)
[2022-07-31] MEDS ORDERED: LEVE100S PO (11:11)
[2022-07-31] MEDS ORDERED: CLOT15CR35 TP (11:11)
[2022-07-31] MEDS ORDERED: LACT10SO58 PO (11:11)
[2022-07-31] MEDS ORDERED: IPRA0.2S9 IH (11:11)
[2022-07-31] MEDS ORDERED: SENN-175 GT (11:11)
[2022-07-31] MEDS ORDERED: TIZA4TAB5 GT (11:11)
[2022-07-31] MEDS ORDERED: MAG30ORA GT (11:11)
[2022-07-31] MEDS ORDERED: IPRA0.2S9 NEB (11:11)
[2022-07-31] MEDS ORDERED: MINE133E RC (11:11)
[2022-07-31] MEDS ORDERED: FERR300L GT (11:11)
[2022-07-31] MEDS ORDERED: ALBUT2 NEB (11:11)
[2022-07-31] MEDS ORDERED: DOCU50LI GT (11:11)
[2022-07-31] MEDS ORDERED: ALBU2.5V13 NEB (11:11)
[2022-07-31 12:00] VITALS: BP 131/87
--- NOTE | 2022-07-31 13:20 | NUR ---
PATIENT BACK TO [facility], GIVEN REPORT SOUMYA/RN INCLUDE AUTOMATIC GRINDER OPERATOR TIME AND NEW MEDICATIONS.
--- NOTE | 2022-07-31 15:30 | NUR ---
PATIENT NOTICED GRIMACE FACIAL EXPRESSION AND GIVEN TYLENOL. WILL CONTINUE TO MONITOR.
[2022-07-31 16:00] VITALS: BP 109/68
[2022-07-31] MEDS: ACETAMINOPHEN 325 MG TABLET MC PRN (16:01)
--- NOTE | 2022-07-31 18:30 | NUR ---
RN CLOSING NOTE PATIENT IN BED RESTING. IN NO ACUTE DISTRESS NOTED. RESPIRATORY EVEN AND UNLABORED WITH ON VENTILATOR. SKIN IS WARM TO TOUCH, KEEP CLEAN/DRY, INTACT NEW IV LINE. KEPT ELEVATED HOB FOR ENSURE AIRWAY AND ASPIRATION PRECAUTION. BED IN LOWEST POSITION AND LOCKED. BED ALARM IS ON AT ALL THE TIMES. ALL SAFETY MEASURED IN PLACED. PATIENT D/C TOMORROW AND AMBULANCE SUPERVISOR HAND WORKERS TIME AT 8 AM. CALL LIGHT WITHIN REACH, WILL ENDORSED TO NEXT SHIFT.
[2022-07-31 20:00] VITALS: BP 117/75
--- NOTE | 2022-07-31 20:00 | NUR ---
RN PRODUCTION OPENING NOTE RECEIVED PT IN BED, ON MECHANICAL VENTILATOR, NO SOB/ACUTE DISTRESS NOTED, V/S STABLE AFEBRILE NSR IN TELE MONITOR, SR -89 , LEFT FOOT g24 INTACT AND PATENT . ON IVF NS AT 100CC/HR INFUSING WELL NO INFILTRATION NOTED GT FEEDING JEVITY AT 60CC/HR NO RESIDUAL NOTED ALL DUE MEDS GIVEN NO ASE NOTED. F/C INTACT AND PATENT DRAINING WITH YELLOWISH URINE OUTPUT, FLEXCESEAL INTACT DRAINING . ALL SAFETY PRECAUTION MAINTAINED, HOB ELEVATED AT ALL TIME, BD S/R UP X2, WILL CONTINUE TO MONITOR PTS.
[2022-08-01] VITALS: BP 102/62
[2022-08-01] MEDS: ALBUTEROL FS 2.5 MG/3 ML VIAL.NEB NEB SCH ×2 (01:32→08:34)
[2022-08-01] MEDS: IPRATROPIUM NEB FS 0.5 MG/2.5 ML AMPUL.NEB NEB SCH ×2 (01:32→08:34)
[2022-08-01 04:00] VITALS: BP 130/84
[2022-08-01] MEDS: TIZANIDINE HCL 4 MG TABLET GT SCH (04:04)
[2022-08-01] MEDS: METOCLOPRAMIDE HCL 10 MG/2 ML VIAL IV SCH (04:04)
--- NOTE | 2022-08-01 06:42 | NUR ---
satellite television installer notes Pts remain in bed on ventilator dependent will tolerated by pts no sob no distress noted .pts for discharged today to [facility] at 8am will endorse to rn day shift for continuity of care.
--- NOTE | 2022-08-01 07:30 | NUR ---
CYLINDER STEAMER OPENING NOTES: RECEIVED PATIENT IN BED, AWAKE, RESPONSIVE TO VOICE AND SOUND, OBTUNDED. ON MECHANICAL VENT WITH PORTEX # 7, VENT SETTING FOLLOWS: AC 16, TV 550, FI02 405, PEEP 5. NO RESPIRATORY DISTRESS NOTED WITH OXYGEN SATURATION OF 100%. PATIENT IS ON SR ON TELE MONITOR. G-TUBE IN PLACE, INTACT, NO RESIDUAL NOTED WITH JEVITY FEEDING @ 65 ML/HR. PRUITT CATHETER IN PLACE, DRAINING WITH YELLOW COLORED URINE, NO HEMATURIA AND NO SEDIMENTATION NOTED. BED LOCKED AND IN LOWEST POSITION. ALL SAFETY MEASURES IN PLACE. HOB KEPT ELEVATED. CALL LIGHT WITHIN REACH. RECEIVED A REPORT THAT HE WILL BE DISCHARGED TODAY AND SUBSTATION SUPERVISOR TIME IS AT 0800. WILL CONTINUE TO MONITOR PATIENT.
[2022-08-01] MEDS: DOCUSATE SODIUM LIQ 100 MG/10 ML UDC GT SCH (08:07)
[2022-08-01] MEDS: SENNOSIDES 8.6 MG TABLET GT SCH (08:07)
[2022-08-01] MEDS: ASCORBIC ACID 500 MG TABLET GT SCH (08:07)
[2022-08-01] MEDS: LEVETIRACETAM SOL (5 ML) 100 MG/ML UDC PO SCH (08:07)
[2022-08-01] MEDS: FERROUS SULFATE UDC 300 MG/5 ML UDC GT SCH (08:07)
[2022-08-01] MEDS: PANTOPRAZOLE 40 MG/PACK PACK GT SCH (08:07)
[2022-08-01 08:08] VITALS: BP 122/80
[2022-08-01] MEDS: DOXAZOSIN MESYLATE (1 MG) 1 MG TABLET GT SCH (08:08)
[2022-08-01] MEDS: MULTIVIT W/MINERALS 1 TAB TABLET PO SCH (08:08)
[2022-08-01] MEDS: CLOTRIMAZOLE 1% 15 GM TUBE TP SCH (08:21)
--- NOTE | 2022-08-01 08:30 | NUR ---
TRANSPORTATION CAME TO IT APPLICATION DEVELOPMENT MANAGER THE PATIENT TOGETHER WITH A RESPIRATORY THERAPIST. CALLED [facility], SPOKE WITH MICKI CARVER AND GAVE FULL REPORT FOR THE PATIENT. ALSO GAVE REPORT TO RESPIRATORY THERAPIST STEPHANIA WHO CAME HERE TO ACCOMPANY THE PATIENT TO THE FACILITY. V/S FOLLOWS: TEMP 98.1, HR 65, RR 16, OXYGEN SATURATION 100%, BP 122/80
--- NOTE | 2022-08-01 08:35 | NUR ---
PATIENT LEFT IN NO APPARENT DISTRESS NOTED. DISCHARGE PAPERWORK GIVEN TO THE AMBULANCE.
[2022-08-02] MEDS ORDERED: MINERAL OIL 133 ML (PYXIS) 1 EA ENEMA RC SCH (09:00)
== END 2022-08-01 09:29 | DRG 130 ==
LOC: ER 07-15 00:03 → TELE1 07-15 04:41 → MEDSG1 07-16 00:15 → TELE-TD 07-16 00:32 → TELE1 07-16 14:53
PROVIDERS: ADMIT Nurse Practitioner Acute Care; ATTEND Nurse Practitioner Acute Care
PROC: 5A1955Z Respiratory Ventilation, Greater than 96 Consecutive Hours (ICD-10-PCS; principal; 2022-07-15)
PROC: 05H933Z Insertion of Infusion Device into Right Brachial Vein, Percutaneous Approach (ICD-10-PCS; 2022-07-15)
DX: J95.851 Ventilator associated pneumonia (principal); J69.0 Pneumonitis due to inhalation of food and vomit; G82.50 Quadriplegia, unspecified; G93.41 Metabolic encephalopathy; J96.21 Acute and chronic respiratory failure with hypoxia; E46 Unspecified protein-calorie malnutrition; G93.1 Anoxic brain damage, not elsewhere classified; K56.7 Ileus, unspecified; I48.92 Unspecified atrial flutter; D68.59 Other primary thrombophilia; D69.6 Thrombocytopenia, unspecified; E87.20 Acidosis, unspecified; D63.8 Anemia in other chronic diseases classified elsewhere; I48.0 Paroxysmal atrial fibrillation; K92.2 Gastrointestinal hemorrhage, unspecified; G40.909 Epilepsy, unspecified, not intractable, without status epilepticus; Z93.0 Tracheostomy status; Z99.11 Dependence on respirator [ventilator] status; Z20.822 Contact with and (suspected) exposure to COVID-19; I10 Essential (primary) hypertension; R13.10 Dysphagia, unspecified; K21.9 Gastro-esophageal reflux disease without esophagitis; K56.41 Fecal impaction; M62.838 Other muscle spasm; Z86.19 Personal history of other infectious and parasitic diseases; Z79.82 Long term (current) use of aspirin; Z79.51 Long term (current) use of inhaled steroids; Z79.899 Other long term (current) drug therapy; Z93.1 Gastrostomy status; Z96.89 Presence of other specified functional implants; E88.09 Other disorders of plasma-protein metabolism, not elsewhere classified; E87.6 Hypokalemia; F09 Unspecified mental disorder due to known physiological condition; Z87.820 Personal history of traumatic brain injury; Y84.8 Other medical procedures as the cause of abnormal reaction of the patient, or of later complication, without mention of misadventure at the time of the procedure; Y92.129 Unspecified place in nursing home as the place of occurrence of the external cause; J15.9 Unspecified bacterial pneumonia
CPT/HCPCS: 31720; 36415; 36600; 71045-TC; 74018; 74250-TC; 80048-TC; 80053-TC; 80076-TC; 80202-TC; 82803-TC; 82962-TC; 83605-TC; 83735-TC; 84100-TC; 84484-TC; 85025-TC; 85652-TC; 86850-TC; 87040-TC; 94003-TC; 94760-TC; 94762-TC; 94799-TC; 99082-TC; A4217; A4623; A6253; A6403; A7526; A9563; C9113; C9803; G0378; J0692; J1650; J1953; J1956; J2765; J3370; J3480; J3490; J7030; J7040; J7050; J7060; Q9963; Q9967

== ENCOUNTER 2022-11-07 00:53 | Inpatient (IN) | payer MEDICAID ==
[~2022-11-07] VITALS: Ht 170.2 cm; Wt 81.0 kg
[~2022-11-07 00:53] MED LIST changes: +ALBU2.5V13 NEB; +ALBUT2 NEB; -ASPI-605 GT; +CHOL200013 GT; +CLOT15CR35 TP; +DOCU50LI GT; +FERR300L GT; +IPRA0.2S9 IH; +IPRA0.2S9 NEB; +LACT10SO58 PO; +LEVE100S PO; -LORA2VIA6 IM; +MAG30ORA GT; +MINE133E RC; -NIFE-35 GT; +SENN-175 GT; -SENN-261 GT
--- NOTE | 2022-11-07 00:58 | NUR ---
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 A/OX0. RESPONDS TO PAINFUL STIMULI. UNABLE TO MAKE NEEDS KNOWN. ATTACHED TO MONITOR. (-)SOB NOTED. PT CAME WITH TRACH ATTACHED TO O2 AT 6LPM, SATURATING AT 98% WITH GTUBE FOR FEEDING/MEDS. BOTH UPPER AND LOWER EXTREMITIES ARE CONTRACTED. SAFETY MEASURES IN PLACE. V/S TAKEN.
[2022-11-07] MEDS ORDERED: ONDANSETRON HCL/PF 4 MG/2 ML VIAL IVP ONE (01:30)
[2022-11-07] MEDS ORDERED: PANTOPRAZOLE 40 MG VIAL IV ONE (01:30)
[2022-11-07] MEDS ORDERED: IV NS 0.9% 1,000 ML BAG IV ONE (01:30)
--- NOTE | 2022-11-07 01:30 | NUR ---
BLOOD DRAWN AND SENT TO LAB.
--- NOTE | 2022-11-07 01:45 | NUR ---
IV CANNULA INSERTED ON RT LOWER LEG USING G#20.
[2022-11-07] MEDS ORDERED: PANTOPRAZOLE 40 MG VIAL ONE (01:46)
[2022-11-07] MEDS ORDERED: ONDANSETRON HCL/PF 4 MG/2 ML VIAL ONE (01:46)
[2022-11-07 01:48] LABS: BASOPHILS % (AUTO) 0.3 % (0.0-2.0); EOSINOPHILS % (AUTO) 0.7 % (0.0-6.0); HEMATOCRIT 43 % (39-51); HEMOGLOBIN 13.9 g/dL (13.5-17.5); LYMPHOCYTES # (AUTO) 0.8 K/uL (0.8-4.8); LYMPHOCYTES % (AUTO) 6.7 % (20.0-44.0); MEAN CORPUSCULAR HGB CONC 32 g/dl (31.0-36.0); MEAN CORPUSCULAR VOLUME 87 fL (80-96); MONOCYTES # (AUTO) 0.4 K/uL (0.1-1.30); MONOCYTES % (AUTO) 3.4 % (2.0-12.0); NEUTROPHILS % (AUTO) 88.9 % (43.0-81.0); PLATELET COUNT (AUTO) 202 K/uL (150-450); RED BLOOD CELL COUNT(AUTO) 4.93 MIL/uL (4.5-6.0); WHITE BLOOD COUNT (AUTO) 11.3 K/uL (4.3-11.0)
[2022-11-07 01:51] LABS: CALCIUM, SERUM 9.4 mg/dL (8.5-10.1); CARBON DIOXIDE 28 mmol/L (21-32); CHLORIDE 100 mmol/L (98-107); CREATININE 0.7 mg/dL (0.6-1.3); GLUCOSE 123 mg/dL (74-106); POTASSIUM 3.8 mmol/L (3.5-5.1); SODIUM SERUM 137 mmol/L (136-145); UREA NITROGEN, BLOOD 23 mg/dL (7-18)
[2022-11-07 01:57] LABS: ALANINE AMINOTRANSFERASE 28 U/L (12-78); ALBUMIN 3.8 g/dL (3.4-5.0); ALKALINE PHOSPHATASE 68 U/L (46-116); ASPARTATE AMINOTRANSFERASE 29 U/L (15-37); BILIRUBIN,DIRECT 0.2 mg/dL (0.0-0.2); BILIRUBIN,TOTAL 0.4 mg/dL (0.2-1.0); LIPASE 143 U/L (73-393); TOTAL PROTEIN, SERUM 8.6 g/dL (6.4-8.2)
--- NOTE | 2022-11-07 02:13 | NUR ---
BROUGHT TO CT DEPT
--- NOTE | 2022-11-07 03:24 | NUR ---
COVID AND MRSA SENT TO LAB
[2022-11-07] MEDS ORDERED: AZITHROMYCIN 500 MG VIAL ONE (03:26)
[2022-11-07] MEDS ORDERED: CEFTRIAXONE 1GM BAG (ER ONLY) 50 ML IV ONE (03:27)
[2022-11-07] MEDS ORDERED: IPRATROPIUM NEB FS 0.5 MG/2.5 ML AMPUL.NEB IH PRN (03:30)
[2022-11-07] MEDS ORDERED: NA PHOS,M-B/NA PHOS,DI-BA 1 EA ENEMA RC PRN (03:30)
[2022-11-07] MEDS ORDERED: MAGNESIUM HYDROXIDE 30 ML UDC PO ONE (03:30)
[2022-11-07] MEDS ORDERED: BISACODYL SUPP (10 MG) 10 MG/SUPP.RECT SUPP.RECT RC PRN (03:30)
[2022-11-07] MEDS ORDERED: AZITHROMYCIN 500 MG in IV D5W 250 ML IV ONE (03:30)
[2022-11-07] MEDS ORDERED: ONDANSETRON HCL/PF 4 MG/2 ML VIAL IVP PRN (03:30)
[2022-11-07] MEDS ORDERED: ALBUTEROL FS 2.5 MG/0.5 ML VIAL.NEB NEB PRN ×2 (03:30→08:30)
[2022-11-07] MEDS ORDERED: MAG HYDROX/AL HYDROX/SIMETH 30 ML UDC PO PRN (03:30)
[2022-11-07] MEDS ORDERED: Medication Not On Formulary EA (Ipratropium/Albuterol Sulfate (Duoneb 2.5-0.5 Mg/3 Ml So IH PRN (03:30)
[2022-11-07] MEDS ORDERED: ZOLPIDEM TARTRATE 5 MG TABLET PO PRN (03:30)
[2022-11-07] MEDS ORDERED: CEFTRIAXONE 1GM BAG (ER ONLY) 1 GM/50 ML PIGGYBACK IV ONE (03:30)
[2022-11-07] MEDS ORDERED: ACETAMINOPHEN 325 MG TABLET PO PRN ×2 (03:30→11:30)
[2022-11-07] MEDS ORDERED: MAG HYDROX/AL HYDROX/SIMETH 30 ML UDC GT PRN ×2 (03:30→11:30)
[2022-11-07] MEDS ORDERED: ACETAMINOPHEN 325 MG TABLET MC PRN (03:30)
[2022-11-07] MEDS ORDERED: JEVITY 1.2 CAL 1,000 ML BOTTLE GT PRN (03:30)
[2022-11-07] MEDS ORDERED: CEFEPIME 1 GM in IV D5W 50 ML IV SCH (03:30)
[2022-11-07] MEDS ORDERED: LACTULOSE 10 G/15 ML UDC (PYXIS) PO PRN (03:30)
[2022-11-07] MEDS ORDERED: Z GUARD REMEDY 4 OZ OINT TP PRN (03:30)
--- NOTE | 2022-11-07 04:00 | NUR ---
Suction secretions done. Needs attended.
--- NOTE | 2022-11-07 05:38 | NUR ---
BED 310-2 AFTER SHIFT CHANGE
[2022-11-07] MEDS ORDERED: Medication Not On Formulary EA (Ipratropium/Albuterol Sulfate (Duoneb 2.5-0.5 Mg/3 Ml So IH SCH (06:00)
--- NOTE | 2022-11-07 06:28 | NUR ---
sUCTION SECRETION DONE BY RT.
[2022-11-07] MEDS ORDERED: MAGNESIUM HYDROXIDE 30 ML UDC GT PRN (06:30)
[2022-11-07] MEDS ORDERED: CEFEPIME 1 GM in IV D5W 50 ML IV ONE (07:00)
--- NOTE | 2022-11-07 07:20 | NUR ---
REPORT GIVEN TO MICKI PITTMAN.
--- NOTE | 2022-11-07 07:29 | NUR ---
PT TRASNPORTED TO 3W WITH ACLS PROTOCOLS IN PLACE
[2022-11-07 07:45] VITALS: BP 136/84
[2022-11-07] MEDS: ALBUTEROL FS 2.5 MG/3 ML VIAL.NEB NEB SCH ×3 (07:47→19:58)
[2022-11-07] MEDS: IPRATROPIUM NEB FS 0.5 MG/2.5 ML AMPUL.NEB NEB SCH ×3 (07:47→19:58)
[2022-11-07] MEDS ORDERED: VANCOMYCIN 1.5 GM in IV D5W 500ml IV SCH (08:00)
[2022-11-07] MEDS ORDERED: SENN-261 GT (08:07)
[2022-11-07] MEDS ORDERED: IPRA4AER IH (08:07)
[2022-11-07] MEDS ORDERED: ACET-2605 GT (08:07)
[2022-11-07] MEDS ORDERED: ACET-868 GT (08:07)
[2022-11-07] MEDS ORDERED: PANT40SU2 GT (08:07)
[2022-11-07] MEDS ORDERED: LACT10SO3 GT (08:07)
[2022-11-07] MEDS ORDERED: CHLO473M5 MM (08:07)
[2022-11-07] MEDS ORDERED: TIZA4TAB5 GT (08:07)
[2022-11-07] MEDS ORDERED: MAG30ORA GT (08:07)
[2022-11-07] MEDS ORDERED: LEVE100S GT (08:08)
[2022-11-07] MEDS ORDERED: LACT-209 GT (08:11)
[2022-11-07] MEDS: IV NS 0.9% 1,000 ML IV PRN (08:25)
--- NOTE | 2022-11-07 08:44 | NUR ---
FRAMING CONSULTANTBRACELET FORMER NOTES PT ADMITTED TO UNIT [facility]IA [facility] AT 0740 WITH DIAGNOSIS OF ASPIRATION PNA. PT IS A/O X0, NON-VERBAL, OPEN EYES, RESPONSIVE TO TACTILE AND PAIN STIMULI. V/S TAKEN, STABLE AND RECORDED. PT WITH TRACH PORTEX #7 ON T-PIECE @ 5LPM, TOLERATING WELL WITH NO ACUTE RESPIRATORY DISTRESS NOTED. PHOTOS OF SKIN ISSUES TAKEN AND FILED ON HIS CHART. PT WITH IV ACCESSES ON LEFT FOOT #22G AND RIGHT FOOT G#20 BOTH INTACT AND PATENT, IVF OF NS @ 100ML/HR STARTED PER MD ORDER. LUNGS CLEAR ON AUSCULTATION. ABDOMEN SOFT, NON-TENDER AND MILD-DISTENDED WITH POSITIVE BOWEL SOUNDS PRESENT. PT PLACED ON EXTERNAL SOCIAL PSYCHOLOGIST WITH CURRENT READING OF NSR, HR 62 BPM, NO S/S CARDIAC DISTRESS NOTED. PT WITH G-TUBE FR#[address] AND PATENT, WILL RE-START GTF ORDERED. FALL, ASPIRATION, SEIZURE AND ALL SAFETY PRECAUTIONS IMPLEMENTED: BED IN LOWEST LOCKED POSITION, SIDE RAILS UP X3 AND PADDED, BED ALARM ON AND CALL LIGHT W/I REACH. WILL CONTINUE TO MONITOR PT.
[2022-11-07] MEDS ORDERED: DOCUSATE SODIUM 100 MG CAPSULE PO SCH (09:00)
[2022-11-07] MEDS ORDERED: FERROUS SULFATE PO SCH (09:00)
[2022-11-07] MEDS ORDERED: Medication Not On Formulary EA (Levetiracetam (Keppra) 1,000 MG) GT SCH (09:00)
[2022-11-07] MEDS ORDERED: Medication Not On Formulary EA (Cran/Vitc/Mannose/Inulin/Brom (Uti-Stat Liquid) 3,875 MG GT SCH (09:00)
[2022-11-07] MEDS ORDERED: LEVETIRACETAM SOL (5 ML) 100 MG/ML UDC PO SCH (09:00)
[2022-11-07] MEDS: DOCUSATE SODIUM LIQ 100 MG/10 ML UDC GT SCH ×2 (09:03→16:24)
[2022-11-07] MEDS: FERROUS SULFATE UDC 300 MG/5 ML UDC GT SCH (09:03)
[2022-11-07] MEDS: DOXAZOSIN MESYLATE (1 MG) 1 MG TABLET GT SCH (09:04)
[2022-11-07] MEDS: PANTOPRAZOLE 40 MG/PACK PACK GT SCH ×2 (09:04→21:29)
[2022-11-07] MEDS: ASCORBIC ACID 500 MG TABLET GT SCH (09:04)
[2022-11-07] MEDS: CHOLECALCIFEROL 1,000 UNIT TABLET (VIT D3) GT SCH (09:04)
[2022-11-07] MEDS: MINERAL OIL 133 ML (PYXIS) 1 EA ENEMA RC SCH (09:05)
[2022-11-07] MEDS: CLOTRIMAZOLE 1% 15 GM TUBE TP SCH ×2 (09:05→16:28)
[2022-11-07] MEDS: SENNOSIDES 8.6 MG TABLET GT SCH ×3 (09:05→16:24)
[2022-11-07] MEDS: MULTIVIT W/MINERALS 1 TAB TABLET GT SCH (09:06)
[2022-11-07] MEDS: TIZANIDINE HCL 4 MG TABLET GT SCH ×3 (09:07→21:29)
[2022-11-07 09:22] LABS: HEMOGLOBIN 12.6 g/dL (13.5-17.5)
--- NOTE | 2022-11-07 10:04 | NUR ---
WOUND CARE CONSULT: PT PRESENTS WITH REDNESS TO G TUBE SITE, SACRAL SCARRING, AREAS OF REDNESS/SKIN DISCOLORATION TO FACE AND BILATERAL ANTECUBITAL REGIONS, PRESENT ON ADMISSION. DR CHUA NOTIFIED OF PT ADMISSION FOR SURGICAL CONSULT. DISCUSSED SKIN PROTECTION WITH NURSING STAFF. M D IN AGREEMENT WITH PLAN OF CARE.
[2022-11-07] MEDS: JEVITY 1.2 CAL 1,000 ML BOTTLE GT PRN (10:23)
[2022-11-07] MEDS ORDERED: ACETAMINOPHEN ES 500 MG TABLET GT PRN (11:30)
[2022-11-07] MEDS ORDERED: JEVITY 1.2 CAL 1,000 ML BOTTLE GT SCH (11:30)
[2022-11-07 11:51] VITALS: BP 112/73
[2022-11-07] MEDS ORDERED: Medication Not On Formulary EA (Ipratropium/Albuterol Sulfate (Combivent Respimat 20-100 IH SCH (12:00)
[2022-11-07] MEDS ORDERED: IPRATROPIUM NEB FS 0.5 MG/2.5 ML AMPUL.NEB NEB SCH (12:00)
[2022-11-07] MEDS: CEFEPIME 2 GM in IV D5W 100 ML IV SCH ×2 (12:09→20:48)
[2022-11-07] MEDS ORDERED: ACETAMINOPHEN 650 MG/20.3 ML UDC GT PRN ×3 (13:00)
[2022-11-07] MEDS ORDERED: TIZANIDINE HCL 4 MG TABLET GT SCH (13:00)
[2022-11-07] MEDS ORDERED: LACTULOSE 10 G/15 ML UDC (PYXIS) GT PRN (13:00)
[2022-11-07 14:28] VITALS: BP 131/76
[2022-11-07] MEDS: VANCOMYCIN 1.25 GM in IV D5W 250 ML IV SCH (15:21)
[2022-11-07 16:08] VITALS: BP 114/64
[2022-11-07] MEDS: CHLORHEXIDINE GLUCONATE 15 ML UDC MM SCH (16:25)
[2022-11-07 17:23] LABS: HEMOGLOBIN 11.8 g/dL (13.5-17.5)
--- NOTE | 2022-11-07 18:33 | NUR ---
MAGAZINE WORKER CLOSING NOTES PT AWAKE AT THIS TIME AND LYING AT MODERATE HIGH BACKREST POSITION. A/O X0, NON-VERBAL, RESPONDS TO TACTILE AND PAIN STIMULI. PT NOTED SMILING WHEN SPOKEN TOO. PT WITH TRACH PORTEX #7 ON COOL AEROSOL T-PIECE @ 5LPM, TOLERATING WELL WITH NO ACUTE RESPIRATORY DISTRESS NOTED. IV ACCESS ON LEFT FOOT #22G AND RIGHT FOOT G#20 BOTH INTACT AND PATENT, IVF OF NS @ 100ML/HR RUNNING TO RIGHT FOOT, NO S/S OF INFILTRATION NOTED. TELE- MONITOR SHOWS NSR, HR 83 BPM AT THIS TIME. NO S/S CARDIAC DISTRESS NOTED. G-TUBE FR#[address] WITH FEEDING OF JEVITY 1.2 @ 75ML/HR IN PROGRESS. PT TURNED AND REPOSITIONED Q 2HRS AND PRN. ALL NEEDS AND CARE ANTICIPATED. ASPIRATION, SEIZURE AND ALL SAFETY PRECAUTIONS MAINTAINED: BED IN LOWEST LOCKED POSITION, SIDE RAILS UP X3 AND PADDED, BED ALARM ON AND CALL LIGHT W/I REACH. WILL ENDORSE JEAN TO TABLE TOP TILE SETTER NURSE.
--- NOTE | 2022-11-07 19:39 | NUR ---
RN OPENING NOTE PATIENT AWAKE IN BED. A/OX0, NON-VERBAL. NO S/S OF DISTRESS, BREATHING WITHOUT DIFFICULTY ON COOL AEROSAL T-PIECE. PENDING MIDLINE INSERTION. TELE READS SR 60. JEVITY RUNNING @75ML/HR. SAFETY MEASURES IN PLACE: BED LOCKED AND AT LOWEST POSITION, RAILS UP X2, CALL ROMERO WITHIN REACH. WILL CONTINUE TO MONITOR PATIENT.
[2022-11-07 20:00] VITALS: BP 103/57
--- NOTE | 2022-11-07 20:26 | NUR ---
RN NOTE DR. KEITH CAME TO UNIT TO INSERT MIDLINE. MIDLINE INSERTED SUCCESSFULLY IN HECTOR MIDLINE #20. PATIENT STABLE; WILL CONTINUE TO MONITOR PATIENT.
[2022-11-07] MEDS: LEVETIRACETAM SOL (5 ML) 100 MG/ML UDC GT SCH (21:29)
--- NOTE | 2022-11-07 21:56 | NUR ---
RN NOTE CONTACTED KARY PHARMACIST FROM [facility] ([phone]). CONTACTED PHARMACY RE: DUPLICATION OF KEPPRA (ONE FOR PO AND ONE FOR GT). GT IS CONTINUED WHEREAS PO WAS DISCONTINUED. PATIENT IS T-PIECE W/ G-TUBE. PATIENT STABLE; WILL CONTINUE TO MONITOR PATIENT.
[2022-11-08] VITALS: BP 115/65
[2022-11-08] MEDS: VANCOMYCIN 1.25 GM in IV D5W 250 ML IV SCH ×3 (00:45→14:36)
[2022-11-08 00:59] LABS: HEMOGLOBIN 10.9 g/dL (13.5-17.5)
[2022-11-08] MEDS: IPRATROPIUM NEB FS 0.5 MG/2.5 ML AMPUL.NEB NEB SCH ×4 (02:08→20:06)
[2022-11-08] MEDS: ALBUTEROL FS 2.5 MG/3 ML VIAL.NEB NEB SCH ×4 (02:08→20:06)
[2022-11-08 04:00] VITALS: BP 133/74
[2022-11-08] MEDS: IV NS 0.9% 1,000 ML IV PRN ×2 (04:03→18:14)
[2022-11-08] MEDS: CEFEPIME 2 GM in IV D5W 100 ML IV SCH ×3 (04:03→20:16)
[2022-11-08] MEDS: TIZANIDINE HCL 4 MG TABLET GT SCH ×3 (04:05→21:18)
--- NOTE | 2022-11-08 06:58 | NUR ---
RN CLOSING NOTE PATIENT ASLEEP IN BED. A/OX0, NON-VERBAL. NO S/S OF DISTRESS, BREATHING WITHOUT DIFFICULTY ON T-PIECE COOL AEROSOL. HECTOR MIDLINE #20 INTACT AND PATENT W/ NS 100ML/HR. TELE SR 63. JEVITY 1.2 @75ML/HR . SAFETY MEASURES IN PLACE: BED LOCKED AND AT LOWEST POSITION, RAILS UP X2, CALL ROMERO WITHIN REACH. WILL ENDORSE TO NEXT SHIFT FOR JEAN.
--- NOTE | 2022-11-08 07:30 | NUR ---
RN OPENING NOTE RECEIVED PATIENT ON BED ASLEEP BUT AROUSABLE . A/OX0, NON-VERBAL. NO S/S OF DISTRESS, BREATHING WITHOUT DIFFICULTY ON COOL AEROSAL T-PIECE. IV ACCESS OF HECTOR ML WITH NS @100 ML /HR . TELE READS SR 63. JEVITY RUNNING @75ML/HR. SAFETY MEASURES IN PLACE: BED LOCKED AND AT LOWEST POSITION, RAILS UP X2, CALL ROMERO WITHIN REACH. WILL CONTINUE TO MONITOR PATIENT.
[2022-11-08 07:33] LABS: BASOPHILS % (AUTO) 0.6 % (0.0-2.0); HEMATOCRIT 32 % (39-51); HEMOGLOBIN 10.5 g/dL (13.5-17.5); LYMPHOCYTES # (AUTO) 0.6 K/uL (0.8-4.8); LYMPHOCYTES % (AUTO) 13.8 % (20.0-44.0); MEAN CORPUSCULAR HGB CONC 33 g/dl (31.0-36.0); MEAN CORPUSCULAR VOLUME 87 fL (80-96); MONOCYTES # (AUTO) 0.5 K/uL (0.1-1.30); MONOCYTES % (AUTO) 11.6 % (2.0-12.0); NEUTROPHILS # (AUTO) 2.9 K/uL (1.8-8.9); PLATELET COUNT (AUTO) 134 K/uL (150-450); RED BLOOD CELL COUNT(AUTO) 3.66 MIL/uL (4.5-6.0); WHITE BLOOD COUNT (AUTO) 4.2 K/uL (4.3-11.0)
[2022-11-08 07:46] LABS: CALCIUM, SERUM 8.5 mg/dL (8.5-10.1); CREATININE 0.6 mg/dL (0.6-1.3); MAGNESIUM 2.4 mg/dL (1.8-2.4); PHOSPHORUS 3.5 mg/dL (2.5-4.9); POTASSIUM 4.4 mmol/L (3.5-5.1)
[2022-11-08 08:00] VITALS: BP 116/68
--- NOTE | 2022-11-08 08:36 | NUR ---
RN NOTES WITH VANCO TROUGH RESULT OF 27 AND VANCOMYCIN IV WAS PUT ON HOLD PER PHARMACY RECCOMENDATION
[2022-11-08] MEDS ORDERED: PANTOPRAZOLE 40 MG/PACK PACK GT SCH (09:00)
[2022-11-08] MEDS: LEVETIRACETAM SOL (5 ML) 100 MG/ML UDC GT SCH ×2 (09:14→21:18)
[2022-11-08] MEDS: FERROUS SULFATE UDC 300 MG/5 ML UDC GT SCH (09:15)
[2022-11-08] MEDS: DOCUSATE SODIUM LIQ 100 MG/10 ML UDC GT SCH ×2 (09:15→17:07)
[2022-11-08] MEDS: CHLORHEXIDINE GLUCONATE 15 ML UDC MM SCH ×2 (09:15→17:08)
[2022-11-08] MEDS: MULTIVIT W/MINERALS 1 TAB TABLET GT SCH (09:16)
[2022-11-08] MEDS: CHOLECALCIFEROL 1,000 UNIT TABLET (VIT D3) GT SCH (09:16)
[2022-11-08] MEDS: PANTOPRAZOLE 40 MG/PACK PACK GT SCH (09:16)
[2022-11-08] MEDS: SENNOSIDES 8.6 MG TABLET GT SCH ×2 (09:16→17:06)
[2022-11-08] MEDS: ASCORBIC ACID 500 MG TABLET GT SCH (09:19)
[2022-11-08] MEDS: DOXAZOSIN MESYLATE (1 MG) 1 MG TABLET GT SCH (09:19)
[2022-11-08 09:25] LABS: ALBUMIN 2.9 g/dL (3.4-5.0); BILIRUBIN,DIRECT 0.1 mg/dL (0.0-0.2); BILIRUBIN,TOTAL 0.3 mg/dL (0.2-1.0); TOTAL PROTEIN, SERUM 6.3 g/dL (6.4-8.2)
[2022-11-08] MEDS: CLOTRIMAZOLE 1% 15 GM TUBE TP SCH ×2 (10:32→17:07)
--- NOTE | 2022-11-08 14:44 | NUR ---
RN NOTES VANCOMYCIN IV DUE 1200 GIVEN 1435 PHARMACY DELIVERED AROUND 1430
[2022-11-08 16:07] VITALS: BP 139/79
[2022-11-08 16:40] LABS: HEMOGLOBIN 12.3 g/dL (13.5-17.5)
[2022-11-08] MEDS: JEVITY 1.2 CAL 1,000 ML BOTTLE GT PRN (17:20)
--- NOTE | 2022-11-08 18:26 | NUR ---
RN CLOSING NOTE PATIENT ON BED ASLEEP BUT AROUSABLE . A/OX0, NON-VERBAL. NO S/S OF DISTRESS, BREATHING WITHOUT DIFFICULTY ON COOL AEROSOL T-PIECE. IV ACCESS OF HECTOR ML WITH NS @100 ML /HR . TELE READS SR 63. JEVITY RUNNING @75ML/HR. ALL DUE MEDS GIVEN ORDERED . SAFETY MEASURES IN PLACE: BED LOCKED AND AT LOWEST POSITION, RAILS UP X2, CALL ROMERO WITHIN REACH. WILL ENDORSED TO NEXT SHIFT .
[2022-11-08 20:00] VITALS: BP 113/60
--- NOTE | 2022-11-08 20:33 | NUR ---
HAND CROCHETER NOTES RECEIVED PATIENT LYING IN BED, A/O X 0. NON-VERBAL. ON T-PIECE ON COOL AEROSOL 28% AT 5LPM. NO S/S OF DIFFICULTY OF BREATHING OR CONGESTIONS AT THIS TIME. WITH IV ACCESS AT AT HECTOR ML #20G ON NS AT 100ML/HR INFUSING WELL; PATENT AND INTACT. ON IV ANTIBIOTIC. SIDE RAILS UP X2. KEPT BED ON LOWER LOCKED POSITION. SAFETY MEASURES MAINTAINED. WILL CONTINUE TO MONITOR.
[2022-11-08] MEDS: PANTOPRAZOLE 40 MG VIAL IV SCH (21:18)
[2022-11-08 23:45] VITALS: BP 117/71
[2022-11-09] VITALS: BP 117/71
[2022-11-09] MEDS: VANCOMYCIN 1.25 GM in IV D5W 250 ML IV SCH ×2 (00:29→13:42)
[2022-11-09 00:51] LABS: HEMOGLOBIN 11.1 g/dL (13.5-17.5)
[2022-11-09] MEDS: ALBUTEROL FS 2.5 MG/3 ML VIAL.NEB NEB SCH ×4 (01:45→20:05)
[2022-11-09] MEDS: IPRATROPIUM NEB FS 0.5 MG/2.5 ML AMPUL.NEB NEB SCH ×4 (01:45→20:05)
[2022-11-09] MEDS: CEFEPIME 2 GM in IV D5W 100 ML IV SCH ×3 (03:50→20:32)
[2022-11-09 04:00] VITALS: BP 132/75
[2022-11-09] MEDS: TIZANIDINE HCL 4 MG TABLET GT SCH ×3 (05:15→20:33)
--- NOTE | 2022-11-09 06:59 | NUR ---
SHIPFITTER HELPER CLOSING NOTES PATIENT IS IN BED ASLEEP, ON MODERATE HIGH BACK REST POSITION. WITH TRACHEOSTOMY WITH T-PIECE. WITH IV ACCESS AT HECTOR #20 WITH NS AT 100M/HR INFUSING WELL. ALL DUE MEDICATIONS GIVE AND ALL NEEDS ATTENDED. SUCTIONED SECRETIONS NEEDED.G-TUBE DRESSING DONE. NO S/S OF PAIN OR ANY RESPIRATORY DISTRESSED NOTED AT THIS TIME. KEPT BED ON LOWER LOCKED POSITION AND SIDE RAILS UP X 2 ALL THE IIME. TURNED PATIENT EVERY TWO HOURS. SAFETY MEASURES MAINTAINED. WILL ENDORSED TO AM SHIFT FOR JEAN.
--- NOTE | 2022-11-09 07:30 | NUR ---
RN OPENING NOTE RECEIVED PATIENT ON BED AWAKE . A/OX0, NON-VERBAL. NO S/S OF DISTRESS, BREATHING WITHOUT DIFFICULTY ON COOL AEROSOL T-PIECE. IV ACCESS OF HECTOR ML WITH NS @100 ML /HR . TELE READS SR 86 . JEVITY RUNNING @75ML/HR. SAFETY MEASURES IN PLACE: BED LOCKED AND AT LOWEST POSITION, RAILS UP X2, CALL ROMERO WITHIN REACH. WILL CONTINUE TO MONITOR PATIENT.
[2022-11-09 08:00] VITALS: BP 114/64
[2022-11-09] MEDS: MINERAL OIL 133 ML (PYXIS) 1 EA ENEMA RC SCH (09:08)
[2022-11-09] MEDS: CHLORHEXIDINE GLUCONATE 15 ML UDC MM SCH ×2 (09:09→17:26)
[2022-11-09] MEDS: DOCUSATE SODIUM LIQ 100 MG/10 ML UDC GT SCH ×2 (09:09→17:26)
[2022-11-09] MEDS: PANTOPRAZOLE 40 MG VIAL IV SCH (09:09)
[2022-11-09] MEDS: FERROUS SULFATE UDC 300 MG/5 ML UDC GT SCH (09:09)
[2022-11-09] MEDS: MULTIVIT W/MINERALS 1 TAB TABLET GT SCH (09:10)
[2022-11-09] MEDS: LEVETIRACETAM SOL (5 ML) 100 MG/ML UDC GT SCH ×2 (09:10→20:33)
[2022-11-09] MEDS: ASCORBIC ACID 500 MG TABLET GT SCH (09:10)
[2022-11-09] MEDS: DOXAZOSIN MESYLATE (1 MG) 1 MG TABLET GT SCH (09:10)
[2022-11-09] MEDS: CHOLECALCIFEROL 1,000 UNIT TABLET (VIT D3) GT SCH (09:10)
[2022-11-09] MEDS: SENNOSIDES 8.6 MG TABLET GT SCH ×2 (09:39→17:26)
[2022-11-09] MEDS: CLOTRIMAZOLE 1% 15 GM TUBE TP SCH ×2 (09:40→17:27)
[2022-11-09 10:14] LABS: BASOPHILS % (AUTO) 0.6 % (0.0-2.0); EOSINOPHILS % (AUTO) 4.8 % (0.0-6.0); HEMATOCRIT 37 % (39-51); HEMOGLOBIN 11.9 g/dL (13.5-17.5); LYMPHOCYTES # (AUTO) 0.9 K/uL (0.8-4.8); MEAN CORPUSCULAR HGB CONC 32 g/dl (31.0-36.0); MEAN CORPUSCULAR VOLUME 88 fL (80-96); MONOCYTES # (AUTO) 0.4 K/uL (0.1-1.30); MONOCYTES % (AUTO) 8.9 % (2.0-12.0); NEUTROPHILS # (AUTO) 3.4 K/uL (1.8-8.9); NEUTROPHILS % (AUTO) 67.7 % (43.0-81.0); PLATELET COUNT (AUTO) 152 K/uL (150-450); RED BLOOD CELL COUNT(AUTO) 4.22 MIL/uL (4.5-6.0)
[2022-11-09 10:24] LABS: ALBUMIN 3.2 g/dL (3.4-5.0); BILIRUBIN,TOTAL 0.3 mg/dL (0.2-1.0); CALCIUM, SERUM 8.7 mg/dL (8.5-10.1); CREATININE 0.6 mg/dL (0.6-1.3); POTASSIUM 4.6 mmol/L (3.5-5.1); TOTAL PROTEIN, SERUM 7.1 g/dL (6.4-8.2)
[2022-11-09 12:00] VITALS: BP 141/85
[2022-11-09] MEDS: IV NS 0.9% 1,000 ML IV PRN (12:20)
[2022-11-09 16:00] VITALS: BP 140/82
[2022-11-09] MEDS: JEVITY 1.2 CAL 1,000 ML BOTTLE GT PRN (18:11)
--- NOTE | 2022-11-09 19:33 | NUR ---
RN OPENING NOTE PATIENT ON BED AWAKE . A/OX0, NON-VERBAL. NO S/S OF DISTRESS, BREATHING WITHOUT DIFFICULTY ON COOL AEROSOL T-PIECE. IV ACCESS OF HECTOR ML WITH NS @100 ML /HR . TELE READS SR 86 . JEVITY RUNNING @75ML/HR. SAFETY MEASURES IN PLACE: BED LOCKED AND AT LOWEST POSITION, RAILS UP X2, CALL ROMERO WITHIN REACH. ALL DUE MEDS GIVEN ORDERED , ENDORSED TO NEXT SHIFT .
--- NOTE | 2022-11-09 19:39 | NUR ---
CAR REPAIRER HELPER OPENING NOTES RECEIVED PATIENT LYING IN BED, AWAKE. A/O X 0 NON-VERBAL. ON MODERATE HIGH BACKREST POSITION. WITH TRACHEOSTOMY WITH T-PIECE WITH SETTINGS OF O2 AT 5LPM AND FIO2 OF 40%. WITH IV ACCESS AT LEFT ML #20G CONNECTED TO NS AT 100ML/HR PATENT AND INTACT. ON G-TUBE FEEDING WITH JEVITY 1.2 AT 75ML/HR DRY AND CLEAN. NO S/S OF RESPIRATOR DISTRESS AT THIS TIME. KEPT SIDE RAILS UP X3 AND BED ON LOWER LOCKED POSITION. SAFETY MEASURES MAINTAINED. WILL CONTINUE TO MONITOR.
[2022-11-09 20:00] VITALS: BP 153/89
[2022-11-09] MEDS: PANTOPRAZOLE 40 MG/PACK PACK GT SCH (20:33)
--- NOTE | 2022-11-09 21:09 | NUR ---
RN NOTE PATIENT ON GTF JEVITY 1.2 @ 75 ML/HR X 20 HRS. GTF TURNED OFF AT 2100 TO BE TURN BACK ON AT 0100 AM
[2022-11-10] VITALS: BP 138/72
[2022-11-10] MEDS: VANCOMYCIN 1.25 GM in IV D5W 250 ML IV SCH ×2 (00:06→12:26)
--- NOTE | 2022-11-10 01:00 | NUR ---
RE TELE NOT[facility].2 RESUMED AT 75ML/HR. WILL CONTINUE TO MONITOR
[2022-11-10] MEDS: ALBUTEROL FS 2.5 MG/3 ML VIAL.NEB NEB SCH ×4 (01:47→20:18)
[2022-11-10] MEDS: IPRATROPIUM NEB FS 0.5 MG/2.5 ML AMPUL.NEB NEB SCH ×4 (01:47→20:18)
[2022-11-10 04:00] VITALS: BP 133/71
[2022-11-10] MEDS: CEFEPIME 2 GM in IV D5W 100 ML IV SCH ×3 (04:04→20:27)
[2022-11-10] MEDS: IV NS 0.9% 1,000 ML IV PRN (05:02)
[2022-11-10] MEDS: TIZANIDINE HCL 4 MG TABLET GT SCH ×3 (05:02→20:27)
--- NOTE | 2022-11-10 06:38 | NUR ---
ELECTRONIC SCALE ASSEMBLER AND TESTER CLOSING NOTES PATIENT IS IN BED ASLEEP, ON MODERATE HIGH BACK REST POSITION. WITH TRACHEOSTOMY WITH T-PIECE. WITH IV ACCESS AT HECTOR #20 WITH NS AT 100ML/HR INFUSING WELL. ALL DUE MEDICATIONS GIVE AND ALL NEEDS ATTENDED. SUCTIONED SECRETIONS NEEDED.G-TUBE DRESSING DONE. NO S/S OF PAIN OR ANY RESPIRATORY DISTRESSED NOTED AT THIS TIME. TURNED PATIENT EVERY 2 HOURS. PM CARE RENDERED.CONDOM CATHETER PLACED AND SECURED, KEPT BED ON LOWER LOCKED POSITION AND SIDE RAILS UP X 2 ALL THE TIME. TURNED PATIENT EVERY TWO HOURS. SAFETY MEASURES MAINTAINED. WILL ENDORSED TO AM SHIFT FOR JEAN.
--- NOTE | 2022-11-10 07:25 | NUR ---
TINNING EQUIPMENT TENDER OPENING NOTE RECEIVED PT ASLEEP IN BED, OPENS EYES TO STIMULI. PT IS A/OX0, NONVERBAL. REORIENTED PT NEEDED. PT IS ON T-PIECE AT 5L/MIN, TOLERATING WELL. NO SOB NOTED. NOT IN ANY SIGN OF RESPIRATORY DISTRESS. PT IS ON CARDIAC TELE MONITOR WITH CURRENT READING OF SINUS NINA, HR 57. NO SIGNS OF CARDIAC DISTRESS NOTED AT THIS TIME. IV ACCESS ON HECTOR G#20 MIDLINE INTACT AND PATENT WITH NS INFUSING AT 100ML/HR. GTUBE FEEDING INTACT AND PATENT WITH JEVITY FEEDING RUNNING AT 75ML/HR. KEPT HOB ELEVATED AT ALL TIMES. SAFETY MEASURES IN PLACE: BED IN LOWEST AND LOCKED POSITION, SIDE RAILS UPX2, BED ALARM ON, AND CALL LIGHT WITHIN REACH. WILL CONTINUE TO MONITOR PT.
[2022-11-10 07:36] LABS: CALCIUM, SERUM 8.7 mg/dL (8.5-10.1); CREATININE 0.7 mg/dL (0.6-1.3); POTASSIUM 4.1 mmol/L (3.5-5.1)
[2022-11-10 08:00] VITALS: BP 143/77
[2022-11-10] MEDS: Potassium Chloride 20 MEQ in IV D5/ 0.9% NACL 1,000 ML IV SCH ×3 (09:30→20:27)
[2022-11-10] MEDS: DOXAZOSIN MESYLATE (1 MG) 1 MG TABLET GT SCH (09:37)
[2022-11-10] MEDS: MULTIVIT W/MINERALS 1 TAB TABLET GT SCH (09:37)
[2022-11-10] MEDS: DOCUSATE SODIUM LIQ 100 MG/10 ML UDC GT SCH ×2 (09:37→16:44)
[2022-11-10] MEDS: FERROUS SULFATE UDC 300 MG/5 ML UDC GT SCH (09:37)
[2022-11-10] MEDS: CHLORHEXIDINE GLUCONATE 15 ML UDC MM SCH ×2 (09:37→17:12)
[2022-11-10] MEDS: CHOLECALCIFEROL 1,000 UNIT TABLET (VIT D3) GT SCH (09:37)
[2022-11-10] MEDS: ASCORBIC ACID 500 MG TABLET GT SCH (09:37)
[2022-11-10] MEDS: SENNOSIDES 8.6 MG TABLET GT SCH ×2 (09:37→16:45)
[2022-11-10] MEDS: LEVETIRACETAM SOL (5 ML) 100 MG/ML UDC GT SCH ×2 (09:37→20:27)
[2022-11-10] MEDS: PANTOPRAZOLE 40 MG/PACK PACK GT SCH ×2 (09:38→20:27)
[2022-11-10] MEDS: CLOTRIMAZOLE 1% 15 GM TUBE TP SCH ×2 (09:39→17:13)
--- NOTE | 2022-11-10 10:15 | NUR ---
RN NOTE FOLLOWED UP THE POTASSIUM CHLORIDE 20MEQ WITH D5 NS FROM THE PHARMACY. PER PHARMACIST WILL SEND TO THE UNIT.
--- NOTE | 2022-11-10 10:50 | NUR ---
RN NOTE POTASSIUM CHLORIDE 20MEQ WITH D5 NS NOT ADMINISTERED. MEDICATION STILL NOT AVAILABLE. FOLLOWED IT UP AGAIN WITH THE PHARMACY. PER PHARMACIST IT'S ON THE WAY TO THE UNIT NOW.
--- NOTE | 2022-11-10 11:27 | NUR ---
RN NOTE POTASSIUM CHLORIDE 20MEQ WITH D5 NS JUST RECEIVED FROM THE PHARMACY AND MEDICATION ADMINISTERED AND STARTED INFUSION AT 100ML/HR ORDERED.
[2022-11-10 12:00] VITALS: BP 122/68
--- NOTE | 2022-11-10 12:24 | NUR ---
RN NOTE RECEIVED AN ORDER FROM DR. HERBERT TO STOP GTUBE FEEDING AND DO A GTUBE TO SUCTION AT CONTINUES LOW SUCTION AND INSERT A RECTAL TUBE AND DO A CONTINUES RECTAL TUBE SUCTION. ORDERS CARRIED OUT. Addendum: 11/10/22 at 1309 by SOPHIA FLORES RN ADDENDUM HOLD MEDICATIONS VIA GTUBE PER DR. HERBERT.
--- NOTE | 2022-11-10 13:10 | NUR ---
RN NOTE PT'S ZANAFLEX VIA GTUBE MEDICATION SCHEDULED AT 1300 NOT ADMINISTERED. PER MD TO HOLD ALL MEDICATIONS VIA GTUBE AT THIS TIME.
[2022-11-10 16:00] VITALS: BP 150/75
--- NOTE | 2022-11-10 17:18 | NUR ---
RN NOTE ALL PT'S MEDICATION VIA GTUBE SCHEDULED AT 1700 NOT ADMINISTERED. PER MD TO HOLD ALL MEDICATIONS VIA GTUBE AT THIS TIME.
--- NOTE | 2022-11-10 18:34 | NUR ---
GINNER HELPER CLOSING NOTE PT ASLEEP IN BED, OPENS EYES TO STIMULI. PT IS A/OX0, NONVERBAL. REORIENTED PT NEEDED. PT IS ON T-PIECE AT 5L/MIN, TOLERATING WELL. NO SOB NOTED. NOT IN ANY SIGN OF RESPIRATORY DISTRESS. KEPT HOB ELEVATED AT 40 DEGREE ANGLE AT ALL TIMES. PT IS ON CARDIAC TELE MONITOR WITH CURRENT READING OF SINUS RHYTHM, HR 82. NO SIGNS OF CARDIAC DISTRESS NOTED AT THIS TIME. IV ACCESS ON HECTOR G#20 MIDLINE INTACT AND PATENT WITH POTASSIUM CHLORIDE 20 MEQ IN D5 NS INFUSING AT 100ML/HR. GTUBE FEEDING INTACT AND PATENT WITH JEVITY FEEDING ON HOLD ORDERED BY MD AT THIS TIME. GTUBE SUCTION AND RECTAL TUBE SUCTION IN PLACE ORDERED. ALL NEEDS ATTENDED. KEPT CLEAN AND COMFORTABLE AT ALL TIMES. TURNED AND REPOSITIONED Q2HRS AND NEEDED. SAFETY MEASURES IN PLACE: BED IN LOWEST AND LOCKED POSITION, SIDE RAILS UPX2, BED ALARM ON, AND CALL LIGHT WITHIN REACH. WILL ENDORSE TO DIRECTOR OF ONCOLOGY NURSE FOR JEAN.
--- NOTE | 2022-11-10 19:56 | NUR ---
DATA SME OPENING NOTE PATIENT IN BED WITH EYES OPEN, PT NON-VERBAL. PATIENT ON T-PIECE WITH 5 LPM OF 02, NO S/S OF DISTRESS OR SOB NOTED, BREATHING EVEN AND UNLABORED. PATIENT ON TELE MONITOR READING SINUS RHYTHM, HR: 71. IV ACCESS ON HECTOR ML INTACT AND INFUSING POTASSIUM CHLORIDE 20 MEQ IN D5NS @ 100 ML/HR. PATIENT NPO, HOLD ALL GT MEDS PER MD. GTUBE AND RECTAL TUBE TO SUCTION PER MD. CONDOM CATH IN PLACE AND DRAINING YELLOW URINE BY GRAVITY. SAFETY MEASURES IN PLACE: CALL LIGHT WITHIN REACH, SIDE RAILS UP X 3, HOB ELEVATED, BED ALARM ON. WILL CONTINUE TO MONITOR PATIENT
[2022-11-10 20:17] VITALS: BP 117/85
[2022-11-10] MEDS ORDERED: LEVETIRACETAM (500MG) 1,000 MG in IV NS 0.9% 100 ML IV STA (22:16)
--- NOTE | 2022-11-10 22:20 | NUR ---
DUCT INSTALLER NOTE RECEIVED CALL FROM TELE MONITOR THAT PATIENT'S HR WAS 150 BPM. WENT TO ROOM AND NOTED PATIENT TWITCHING IN FACE AND LEGS, APPEARED TO BE HAVING SEIZURE THAT LASTED ABOUT 2 MINS. NOTIFIED ELECTRONICS SYSTEM MECHANIC MD MURRAY ROSADO WITH ORDER FOR PRN ATIVAN 1 MG IVP Q4H. PATIENT ALSO HAS KEPPRA 1000 MG VIA GT BUT PATIENT IS NPO NOW, GT FEEDING IS CONNECTED TO SUCTION SO KEPPRA WAS NOT ABLE TO BE GIVEN VIA GT. NOTIFIED MURRAY ROSADO WITH ORDER FOR KEPPRA 1000 MG IV NOW AND THEN SCHEDULED Q12H THEREAFTER. ORDERS CARRIED OUT
[2022-11-10] MEDS ORDERED: LORAZEPAM INJ 2 MG/ML VIAL IV PRN (22:30)
[2022-11-10] MEDS ORDERED: LEVETIRACETAM (500MG) 500 MG/5 ML VIAL IV ONE ×2 (22:59→23:02)
[2022-11-11] MEDS: VANCOMYCIN 1.25 GM in IV D5W 250 ML IV SCH ×2 (00:24→12:31)
[2022-11-11 00:46] VITALS: BP 125/84
[2022-11-11] MEDS: ALBUTEROL FS 2.5 MG/3 ML VIAL.NEB NEB SCH ×4 (02:28→20:00)
[2022-11-11] MEDS: IPRATROPIUM NEB FS 0.5 MG/2.5 ML AMPUL.NEB NEB SCH ×4 (02:28→19:59)
[2022-11-11 04:17] VITALS: BP 115/75
[2022-11-11] MEDS: CEFEPIME 2 GM in IV D5W 100 ML IV SCH ×3 (04:38→20:41)
[2022-11-11] MEDS: TIZANIDINE HCL 4 MG TABLET GT SCH ×4 (05:00→21:47)
[2022-11-11 06:15] LABS: BASOPHILS % (AUTO) 0.3 % (0.0-2.0); EOSINOPHILS % (AUTO) 5.1 % (0.0-6.0); HEMATOCRIT 33 % (39-51); HEMOGLOBIN 11.1 g/dL (13.5-17.5); LYMPHOCYTES # (AUTO) 1.3 K/uL (0.8-4.8); LYMPHOCYTES % (AUTO) 23.5 % (20.0-44.0); MEAN CORPUSCULAR HGB CONC 33 g/dl (31.0-36.0); MEAN CORPUSCULAR VOLUME 87 fL (80-96); MONOCYTES # (AUTO) 0.5 K/uL (0.1-1.30); MONOCYTES % (AUTO) 9.2 % (2.0-12.0); NEUTROPHILS # (AUTO) 3.4 K/uL (1.8-8.9); NEUTROPHILS % (AUTO) 61.9 % (43.0-81.0); PLATELET COUNT (AUTO) 132 K/uL (150-450); RED BLOOD CELL COUNT(AUTO) 3.82 MIL/uL (4.5-6.0); WHITE BLOOD COUNT (AUTO) 5.5 K/uL (4.3-11.0)
[2022-11-11] MEDS: Potassium Chloride 20 MEQ in IV D5/ 0.9% NACL 1,000 ML IV SCH ×2 (06:29→16:01)
[2022-11-11 06:39] LABS: ALBUMIN 3.1 g/dL (3.4-5.0); BILIRUBIN,TOTAL 0.5 mg/dL (0.2-1.0); CALCIUM, SERUM 8.7 mg/dL (8.5-10.1); CREATININE 0.7 mg/dL (0.6-1.3); PHOSPHORUS 3.2 mg/dL (2.5-4.9); POTASSIUM 4.4 mmol/L (3.5-5.1); TOTAL PROTEIN, SERUM 6.9 g/dL (6.4-8.2)
--- NOTE | 2022-11-11 07:28 | NUR ---
FIRE PILOT CLOSING NOTE PATIENT IN BED WITH EYES OPEN, PT NON-VERBAL. PATIENT ON T-PIECE WITH 5 LPM OF 02, NO S/S OF DISTRESS OR SOB NOTED, BREATHING EVEN AND UNLABORED. PATIENT ON TELE MONITOR READING SINUS RHYTHM, HR: 70. IV ACCESS ON HECTOR ML INTACT AND INFUSING POTASSIUM CHLORIDE 20 MEQ IN D5NS @ 100 ML/HR. PATIENT NPO, HOLD ALL GT MEDS PER MD. GTUBE TO SUCTION, NO OUTPUT NOTED. RECTAL TUBE TO SUCTION PER MD, VERY LITTLE OUTPUT THIS SHIFT, FLUSHED RECTAL TUBE AND THERE WAS SOME OUTPUT. CONDOM CATH IN PLACE AND DRAINING YELLOW URINE BY GRAVITY. NO MORE SEIZURES NOTED THE REST OF SHIFT. MEDICATIONS GIVEN ORDERED, PT NEEDS MET THROUGHOUT SHIFT, PATIENT TURNED Q2H. SAFETY MEASURES IN PLACE: CALL LIGHT WITHIN REACH, SIDE RAILS UP X 3, HOB ELEVATED, BED ALARM ON. ENDORSED TO DAYSHIFT NURSE FOR CONTINUITY OF CARE
--- NOTE | 2022-11-11 07:30 | NUR ---
SCREWHEAD STONER AND POLISHER OPENING NOTES RECEIVED PATIENT IN BED WITH EYES OPEN, PT NON-VERBAL. PATIENT ON T-PIECE ON O2 AT 5LPM. NO S/S OF DISTRESS OR SOB NOTED, BREATHING EVEN AND UNLABORED. ON TELE MONITOR CURRENTLY READING SINUS RHYTHM AT 70BPM. WITH IV ACCESS ON HECTOR ML WITH IVF D5NS WITH POTASSIUM CHLORIDE 20 MEQ @ 100 ML/HR. PATIENT NPO, HOLD ALL GT MEDS PER MD. GTUBE AND RECTAL TUBE TO SUCTION PER MD. CONDOM CATH IN PLACED AND DRAINING YELLOW URINE BY GRAVITY. SAFETY MEASURES IN PLACED: CALL LIGHT WITHIN REACH, SIDE RAILS UP X 3, HOB ELEVATED, BED ALARM ON. WILL CONTINUE TO MONITOR PATIENT.
[2022-11-11 08:00] VITALS: BP 115/79
[2022-11-11] MEDS: DOXAZOSIN MESYLATE (1 MG) 1 MG TABLET GT SCH (08:33)
[2022-11-11] MEDS: FERROUS SULFATE UDC 300 MG/5 ML UDC GT SCH (08:33)
[2022-11-11] MEDS: DOCUSATE SODIUM LIQ 100 MG/10 ML UDC GT SCH ×2 (08:33→16:19)
[2022-11-11] MEDS: CHOLECALCIFEROL 1,000 UNIT TABLET (VIT D3) GT SCH (08:34)
[2022-11-11] MEDS: ASCORBIC ACID 500 MG TABLET GT SCH (08:34)
[2022-11-11] MEDS: SENNOSIDES 8.6 MG TABLET GT SCH ×2 (08:34→16:19)
[2022-11-11] MEDS: MULTIVIT W/MINERALS 1 TAB TABLET GT SCH (08:34)
[2022-11-11] MEDS: PANTOPRAZOLE 40 MG/PACK PACK GT SCH ×3 (08:34→21:48)
[2022-11-11] MEDS: MINERAL OIL 133 ML (PYXIS) 1 EA ENEMA RC SCH (08:55)
[2022-11-11] MEDS: CHLORHEXIDINE GLUCONATE 15 ML UDC MM SCH ×2 (08:55→16:19)
[2022-11-11] MEDS: LEVETIRACETAM (500MG) 1,000 MG in IV NS 0.9% 100 ML IV SCH ×2 (08:55→21:48)
[2022-11-11] MEDS: CLOTRIMAZOLE 1% 15 GM TUBE TP SCH ×2 (08:56→16:20)
[2022-11-11 12:00] VITALS: BP 100/64
[2022-11-11 13:23] LABS: LYMPHOCYTES % (MANUAL) 20 % (16-48); NEUTROPHILS % (MANUAL) 69 (42-76)
[2022-11-11 13:24] LABS: EOSINOPHILS % (MANUAL) 3 % (0-4); MONOCYTES % (MANUAL) 8 % (0-11.0)
[2022-11-11 16:00] VITALS: BP 107/71
--- NOTE | 2022-11-11 18:17 | NUR ---
WEAPONS AND TACTICS INSTRUCTOR CLOSING NOTES PATIENT IN BED WITH EYES OPEN, PT NON-VERBAL. PATIENT ON T-PIECE ON O2 AT 5LPM. NO S/S OF DISTRESS OR SOB NOTED, BREATHING EVEN AND UNLABORED. ON TELE MONITOR CURRENTLY READING SINUS RHYTHM AT 72BPM. WITH IV ACCESS ON HECTOR ML WITH IVF D5NS WITH POTASSIUM CHLORIDE 20 MEQ @ 100 ML/HR INFUSING WELL. PATIENT NPO, HOLD ALL GT MEDS PER MD. GTUBE AND RECTAL TUBE TO SUCTION PER MD. CONDOM CATH IN PLACED AND DRAINING YELLOW URINE BY GRAVITY. SAFETY MEASURES IN PLACED: CALL LIGHT WITHIN REACH, SIDE RAILS UP X 3, HOB ELEVATED, BED ALARM ON. WILL ENDORSE TO NEXT SHIFT FOR JEAN.
--- NOTE | 2022-11-11 19:35 | NUR ---
RN OPENING NOTE RECEIVED PATIENT IN BED; WITH EYES OPEN, NON-VERBAL. ON T-PIECE PORTEX #7 WITH O2 AT 5 LPM. NOT IN ANY FORM OF RESPIRATORY OR CARDIAC DISTRESS NOTED. ON TELE MONITORING WITH READING OF SINUS RHYTHM HR-74 BPM. WITH IV ACCESS ON HECTOR ML; INTACT AND PATENT INFUSING WITH D5NS WITH POTASSIUM CHLORIDE 20 MEQ RUNNING @ 100 ML/HR; FLUSHES WELL. ON NPO, HOLD ALL GT MEDS PER MD. GTUBE AND RECTAL TUBE TO SUCTION PER MD. WITH CONDOM CATH IN PLACE DRAINING BY GRAVITY TO YELLOW URINE OUTPUT. WITH FLEXISEAL RECTAL TUBE ON CONTINUOUS SUCTION. SAFETY PRECAUTIONS IMPLEMENTED: HEAD OF BED ELEVATED, CALL LIGHT AND TABLE WITHIN REACH, SIDE RAILS UP X 3, BED IN LOWEST LOCKED POSITION. WILL CONTINUE PLAN OF CARE.
[2022-11-11 20:00] VITALS: BP_SYST 120; BP_DIAS 80; BP_DIAS 84
[2022-11-12] VITALS: BP 121/81
[2022-11-12] MEDS: VANCOMYCIN 1.25 GM in IV D5W 250 ML IV SCH ×2 (00:09→12:09)
[2022-11-12] MEDS: IPRATROPIUM NEB FS 0.5 MG/2.5 ML AMPUL.NEB NEB SCH ×4 (01:41→19:36)
[2022-11-12] MEDS: ALBUTEROL FS 2.5 MG/3 ML VIAL.NEB NEB SCH ×4 (01:41→19:36)
[2022-11-12] MEDS: Potassium Chloride 20 MEQ in IV D5/ 0.9% NACL 1,000 ML IV SCH ×3 (02:38→22:22)
[2022-11-12 04:00] VITALS: BP 117/74
[2022-11-12] MEDS: CEFEPIME 2 GM in IV D5W 100 ML IV SCH ×3 (04:20→20:49)
[2022-11-12] MEDS: TIZANIDINE HCL 4 MG TABLET GT SCH ×3 (05:00→20:34)
--- NOTE | 2022-11-12 07:05 | NUR ---
RN CLOSING NOTE PATIENT IN BED; WITH EYES OPEN, NON-VERBAL. STILL ON T-PIECE PORTEX #7 WITH O2 AT 5 LPM. IN NO ACUTE DISTRESS NOTED. ON TELE MONITORING CURRENTLY READING SINUS RHYTHM HR- 74 BPM. WITH IV ACCESS ON HECTOR ML INFUSING WITH D5NS WITH POTASSIUM CHLORIDE 20 MEQ RUNNING @ 100 ML/HR. STILL ON NPO, HOLD ALL GT MEDS PER MD. GTUBE AND RECTAL TUBE TO SUCTION PER MD. WITH CONDOM CATHETER IN PLACE DRAINING BY GRAVITY TO YELLOW URINE OUTPUT. SAFETY PRECAUTIONS MAINTAINED: HEAD OF BED ELEVATED, CALL LIGHT AND TABLE WITHIN REACH, SIDE RAILS UP X 3, BED IN LOWEST LOCKED POSITION. ENDORSED TO MORNING SHIFT FOR JEAN.
[2022-11-12 07:12] LABS: BASOPHILS % (AUTO) 0.7 % (0.0-2.0); EOSINOPHILS % (AUTO) 5.6 % (0.0-6.0); HEMATOCRIT 39 % (39-51); HEMOGLOBIN 12.4 g/dL (13.5-17.5); LYMPHOCYTES # (AUTO) 1.4 K/uL (0.8-4.8); LYMPHOCYTES % (AUTO) 28.1 % (20.0-44.0); MEAN CORPUSCULAR HGB CONC 32 g/dl (31.0-36.0); MEAN CORPUSCULAR VOLUME 88 fL (80-96); MONOCYTES # (AUTO) 0.5 K/uL (0.1-1.30); NEUTROPHILS # (AUTO) 2.7 K/uL (1.8-8.9); NEUTROPHILS % (AUTO) 55.6 % (43.0-81.0); PLATELET COUNT (AUTO) 164 K/uL (150-450); RED BLOOD CELL COUNT(AUTO) 4.37 MIL/uL (4.5-6.0); WHITE BLOOD COUNT (AUTO) 4.9 K/uL (4.3-11.0)
--- NOTE | 2022-11-12 07:53 | NUR ---
DIRECTOR OF FOOD AND NUTRITION SERVICES OPENING NOTE Patient in bed, awake, non-verbal. On T-piece Portex 7 connected to 5 LPM O2. No SOB or s/s of distress noted. IV access on HECTOR midline infusing KCl 20 meq in D5 NS at 100 ml/hr. Flexiseal in place attached to continuous suction. Condom catheter in place draining to a yellow colored urine. G-tube in place attached to suction as well. GT feeding held at this time. Safety precautions in place: bed in low, locked position; sdierails up x2; call light within reach. Will continue to monitor.
[2022-11-12 08:00] VITALS: BP 124/85
[2022-11-12 08:03] LABS: ALBUMIN 3.3 g/dL (3.4-5.0); BILIRUBIN,TOTAL 0.6 mg/dL (0.2-1.0); CREATININE 0.6 mg/dL (0.6-1.3); MAGNESIUM 2.1 mg/dL (1.8-2.4); PHOSPHORUS 3.5 mg/dL (2.5-4.9); POTASSIUM 4.5 mmol/L (3.5-5.1); TOTAL PROTEIN, SERUM 7.4 g/dL (6.4-8.2)
[2022-11-12] MEDS: DOXAZOSIN MESYLATE (1 MG) 1 MG TABLET GT SCH (08:50)
[2022-11-12] MEDS: MULTIVIT W/MINERALS 1 TAB TABLET GT SCH (08:51)
[2022-11-12] MEDS: ASCORBIC ACID 500 MG TABLET GT SCH (08:51)
[2022-11-12] MEDS: SENNOSIDES 8.6 MG TABLET GT SCH ×2 (08:51→16:58)
[2022-11-12] MEDS: DOCUSATE SODIUM LIQ 100 MG/10 ML UDC GT SCH ×2 (08:51→16:58)
[2022-11-12] MEDS: FERROUS SULFATE UDC 300 MG/5 ML UDC GT SCH (08:51)
[2022-11-12] MEDS: PANTOPRAZOLE 40 MG/PACK PACK GT SCH ×2 (08:51→20:34)
[2022-11-12] MEDS: CHOLECALCIFEROL 1,000 UNIT TABLET (VIT D3) GT SCH (08:52)
[2022-11-12] MEDS: LEVETIRACETAM (500MG) 1,000 MG in IV NS 0.9% 100 ML IV SCH ×2 (09:00→14:13)
--- NOTE | 2022-11-12 09:00 | NUR ---
RN NOTE Called pharmacy to follow up on Keppra IV, per pharmacy medication is not available yet. No seizures noted so far. Per hotel night auditor, no reports of seizures noted. Will continue to monitor.
[2022-11-12] MEDS: CHLORHEXIDINE GLUCONATE 15 ML UDC MM SCH ×2 (09:53→16:59)
[2022-11-12] MEDS: CLOTRIMAZOLE 1% 15 GM TUBE TP SCH ×2 (09:57→17:00)
[2022-11-12] MEDS ORDERED: PEG 3350/NA SULF,BICARB,CL/KCL 4,000 ML BOTTLE PO ONE (12:30)
--- NOTE | 2022-11-12 13:30 | NUR ---
RN NOTE Per Dr. Lezama order, discontinue suction on G-tube and flexiseal and administer GoLytely.
[2022-11-12 16:00] VITALS: BP 146/82
--- NOTE | 2022-11-12 18:00 | NUR ---
RN NOTE Flexiseal removed per MD order.
--- NOTE | 2022-11-12 18:56 | NUR ---
EMPLOYMENT TRAINER CLOSING NOTE Patient in bed, asleep, non-verbal. On T-piece Portex 7 connected to 5 LPM O2. No SOB or s/s of distress noted. IV access on HECTOR midline infusing KCl 20 meq in D5 NS at 100 ml/hr. Condom catheter in place draining to a yellow colored urine with an output of 1200 cc. G-tube in place intact. GT feeding held at this time. Patient kept clean and dry. Safety precautions in place: bed in low, locked position; sdierails up x2; call light within reach. Will endorse to film processing shift supervisor nurse for JEAN.
--- NOTE | 2022-11-12 19:40 | NUR ---
CONSTRUCTION MILLWRIGHT OPENING NOTE RECEIVED PATIENT IN BED; OPENS EYES, NON-VERBAL. ON T-PIECE PORTEX #7 WITH O2 AT 5 LPM. NOT IN ANY FORM OF RESPIRATORY OR CARDIAC DISTRESS NOTED. ON TELE MONITORING WITH READING OF SINUS RHYTHM HR-65 BPM. WITH IV ACCESS ON HECTOR ML; INTACT AND PATENT INFUSING WITH D5NS WITH POTASSIUM CHLORIDE 20 MEQ RUNNING @ 100 ML/HR; FLUSHES WELL. ON NPO, HOLD ALL GT MEDS PER MD. WITH CONDOM CATH IN PLACE DRAINING BY GRAVITY TO YELLOW URINE OUTPUT. SAFETY PRECAUTIONS IMPLEMENTED: HEAD OF BED ELEVATED TO 40 DEGREES AT ALL TIMES, CALL LIGHT AND TABLE WITHIN REACH, SIDE RAILS UP X 3, BED IN LOWEST LOCKED POSITION. WILL CONTINUE PLAN OF CARE.
[2022-11-12 20:00] VITALS: BP 130/90
[2022-11-12 22:00] VITALS: BP 130/90
--- NOTE | 2022-11-12 22:15 | NUR ---
RN NOTE WITH EPISODE OF 1 LARGE WATERY STOOL. KEPT CLEAN AND DRY. WILL CONTINUE TO MONITOR.
[2022-11-13] VITALS: BP 114/71
[2022-11-13] MEDS: VANCOMYCIN 1.25 GM in IV D5W 250 ML IV SCH ×2 (00:29→12:27)
[2022-11-13] MEDS: ALBUTEROL FS 2.5 MG/3 ML VIAL.NEB NEB SCH ×3 (02:09→13:49)
[2022-11-13] MEDS: IPRATROPIUM NEB FS 0.5 MG/2.5 ML AMPUL.NEB NEB SCH ×3 (02:09→13:49)
[2022-11-13] MEDS: LEVETIRACETAM (500MG) 1,000 MG in IV NS 0.9% 100 ML IV SCH ×2 (02:11→15:33)
[2022-11-13 04:00] VITALS: BP 106/70
[2022-11-13] MEDS: CEFEPIME 2 GM in IV D5W 100 ML IV SCH ×2 (04:28→12:26)
[2022-11-13] MEDS: TIZANIDINE HCL 4 MG TABLET GT SCH ×2 (04:28→12:23)
--- NOTE | 2022-11-13 06:50 | NUR ---
AIRCRAFT ORDNANCE TECHNICIAN CLOSING NOTE PATIENT IN BED; OPENS EYES, NON-VERBAL. ON T-PIECE PORTEX #7 WITH O2 AT 5 LPM. IN NO ACUTE DISTRESS. ON TELE MONITORING WITH READING OF SINUS RHYTHM HR-61 BPM. WITH IV ACCESS ON HECTOR ML; INTACT AND PATENT INFUSING WITH D5NS WITH POTASSIUM CHLORIDE 20 MEQ RUNNING @ 100 ML/HR; FLUSHES WELL. STILL ON NPO, HOLD ALL GT MEDS PER MD. WITH CONDOM CATH IN PLACE DRAINING BY GRAVITY TO YELLOW URINE OUTPUT. SAFETY PRECAUTIONS MAINTAINED: HEAD OF BED ELEVATED TO 40 DEGREES AT ALL TIMES, CALL LIGHT AND TABLE WITHIN REACH, SIDE RAILS UP X 3, BED IN LOWEST LOCKED POSITION. ENDORSED TO UTE SWEET FOR JEAN.
--- NOTE | 2022-11-13 07:30 | NUR ---
VISUAL COMMUNICATIONS INSTRUCTOR OPENING NOTE PATIENT IN BED; OPENS EYES, NON-VERBAL. ON T-PIECE PORTEX #7 WITH O2 AT 5 LPM, TOLERATING WELL. IN NO ACUTE DISTRESS. ON TELE MONITORING WITH READING OF SINUS TACHY HR-109 BPM. WITH IV ACCESS ON HECTOR ML; INTACT AND PATENT INFUSING WITH D5NS WITH POTASSIUM CHLORIDE 20 MEQ RUNNING @ 100 ML/HR; FLUSHES WELL. STILL ON NPO. SAFETY PRECAUTIONS MAINTAINED: HEAD OF BED ELEVATED TO 40 DEGREES AT ALL TIMES, CALL LIGHT AND TABLE WITHIN REACH, SIDE RAILS UP X 3, BED IN LOWEST LOCKED POSITION.WILL CONTINUE TO MONITOR.
[2022-11-13 08:00] VITALS: BP 137/80
[2022-11-13] MEDS: SENNOSIDES 8.6 MG TABLET GT SCH (09:00)
[2022-11-13] MEDS: MULTIVIT W/MINERALS 1 TAB TABLET GT SCH (09:00)
[2022-11-13] MEDS: FERROUS SULFATE UDC 300 MG/5 ML UDC GT SCH (09:00)
[2022-11-13] MEDS: CHOLECALCIFEROL 1,000 UNIT TABLET (VIT D3) GT SCH (09:00)
[2022-11-13] MEDS: DOXAZOSIN MESYLATE (1 MG) 1 MG TABLET GT SCH (09:00)
[2022-11-13] MEDS: ASCORBIC ACID 500 MG TABLET GT SCH (09:00)
[2022-11-13] MEDS: PANTOPRAZOLE 40 MG/PACK PACK GT SCH (09:00)
[2022-11-13] MEDS: DOCUSATE SODIUM LIQ 100 MG/10 ML UDC GT SCH (09:00)
[2022-11-13] MEDS: Potassium Chloride 20 MEQ in IV D5/ 0.9% NACL 1,000 ML IV SCH (09:11)
[2022-11-13] MEDS: MINERAL OIL 133 ML (PYXIS) 1 EA ENEMA RC SCH (10:10)
[2022-11-13] MEDS: CHLORHEXIDINE GLUCONATE 15 ML UDC MM SCH (10:10)
[2022-11-13] MEDS: CLOTRIMAZOLE 1% 15 GM TUBE TP SCH (10:10)
[2022-11-13 15:24] LABS: BASOPHILS % (AUTO) 0.5 % (0.0-2.0); EOSINOPHILS % (AUTO) 2.9 % (0.0-6.0); HEMATOCRIT 38 % (39-51); HEMOGLOBIN 12.3 g/dL (13.5-17.5); LYMPHOCYTES # (AUTO) 1.2 K/uL (0.8-4.8); LYMPHOCYTES % (AUTO) 20.4 % (20.0-44.0); MEAN CORPUSCULAR HGB CONC 32 g/dl (31.0-36.0); MEAN CORPUSCULAR VOLUME 88 fL (80-96); MONOCYTES # (AUTO) 0.6 K/uL (0.1-1.30); MONOCYTES % (AUTO) 9.2 % (2.0-12.0); NEUTROPHILS # (AUTO) 4.1 K/uL (1.8-8.9); PLATELET COUNT (AUTO) 190 K/uL (150-450); RED BLOOD CELL COUNT(AUTO) 4.39 MIL/uL (4.5-6.0); WHITE BLOOD COUNT (AUTO) 6.1 K/uL (4.3-11.0)
[2022-11-13 15:58] LABS: ALBUMIN 3.5 g/dL (3.4-5.0); BILIRUBIN,TOTAL 0.6 mg/dL (0.2-1.0); CALCIUM, SERUM 9.4 mg/dL (8.5-10.1); CREATININE 0.6 mg/dL (0.6-1.3); MAGNESIUM 1.9 mg/dL (1.8-2.4); PHOSPHORUS 3.2 mg/dL (2.5-4.9); POTASSIUM 4.3 mmol/L (3.5-5.1); TOTAL PROTEIN, SERUM 7.7 g/dL (6.4-8.2)
--- NOTE | 2022-11-13 17:00 | NUR ---
RN NOTES PATIENT DISCHARGED TO [facility] IN STABLE CONDITION. ON OXYGEN AT 5LPM TOLERATING WELL WITH SPO2 OF 95%. NO SOB/DISTRESS NOTED. VITAL SIGNS TAKEN, STABLE AND RECORDED. ALL DUE MEDS GIVEN. DISCHARGED INSTRUCTIONS REPORTED TO HOLLI CHARGE NURSE OF THE [facility]. IV ACCESS REMOVED WITH NO ACTIVE BLEEDING NOTED. TOOK PICTURES OF WOUND. KEPT THE PATIENT CLEAN AND COMFORTABLE. PATIENT LEFT THE UNIT VIA GURNEY ACCOMPANIED BY AMBULANCE STAFF. DISCHARGED.
== END 2022-11-13 17:15 | DRG 241 ==
LOC: ER 00:54 → TELE 05:40
PROVIDERS: ADMIT Internal Medicine
PROC: 05HA33Z Insertion of Infusion Device into Left Brachial Vein, Percutaneous Approach (ICD-10-PCS; principal; 2022-11-07)
DX: K29.71 Gastritis, unspecified, with bleeding (principal); J96.20 Acute and chronic respiratory failure, unspecified whether with hypoxia or hypercapnia; G93.49 Other encephalopathy; R53.2 Functional quadriplegia; G93.1 Anoxic brain damage, not elsewhere classified; I48.92 Unspecified atrial flutter; E87.20 Acidosis, unspecified; K56.7 Ileus, unspecified; I48.91 Unspecified atrial fibrillation; K94.22 Gastrostomy infection; K59.00 Constipation, unspecified; Z99.11 Dependence on respirator [ventilator] status; Z20.822 Contact with and (suspected) exposure to COVID-19; D64.9 Anemia, unspecified; R13.10 Dysphagia, unspecified; N40.0 Benign prostatic hyperplasia without lower urinary tract symptoms; Z86.19 Personal history of other infectious and parasitic diseases; Z79.51 Long term (current) use of inhaled steroids; Z79.899 Other long term (current) drug therapy; I10 Essential (primary) hypertension; L03.311 Cellulitis of abdominal wall; M62.422 Contracture of muscle, left upper arm; M62.421 Contracture of muscle, right upper arm; K21.9 Gastro-esophageal reflux disease without esophagitis; Y83.3 Surgical operation with formation of external stoma as the cause of abnormal reaction of the patient, or of later complication, without mention of misadventure at the time of the procedure; Y92.129 Unspecified place in nursing home as the place of occurrence of the external cause; J98.11 Atelectasis; K59.81 Ogilvie syndrome
CPT/HCPCS: 31720; 36410; 36415; 71045-TC; 74018; 80048-TC; 80053-TC; 80076-TC; 80202-TC; 83605-TC; 83690-TC; 83735-TC; 84100-TC; 85025-TC; 85027-TC; 85730-TC; 87081-TC; 94640-TC; 94799-TC; A4217; A4349; A4623; A6403; A7526; C9113; C9803; G0378; J0456; J0692; J0696; J1953; J2060; J2405; J3370; J3480; J7030; J7042; J7050; J7060